=== PATIENT | male | born 1940 | race Caucasian/White ===

== ENCOUNTER 2017-12-01 15:13 | Inpatient (IN) | payer MEDICARE, OTHER ==
[2017-12-01] MEDS ORDERED: NORMAL SALINE 1000 ML 1,000 ML IV ONE (15:34)
--- NOTE | 2017-12-01 15:39 | ER Document Report ---
ED Respiratory Problem - General Stated Complaint: RESPIRATORY DISTRESS Time Seen by Provider: 12/01/17 15:28 Notes: Patient came in respiratory distress. Had severe shortness of breath. [place] sharp pain in his chest. Never had this happen before. No history of COPD. Does have a history of hypertension. Was seen by EMS. EMS placed on CPAP. Not getting better. Heart rate was 177 on arrival. - HPI Patient complains to provider of: Chest pain Onset: Just prior to arrival Quality of pain: Stabbing Severity: Severe Pain Level: 5 Short of Breath: Severe Chest pain/discomfort: Left Cough: Nonproductive Sputum amount: None Associated symptoms: None Past Medical History - General Information source: Patient - Social History Smoking Status: Former Smoker Cigarette use (# per day): No Frequency of alcohol use: None Drug Abuse: None Lives with: Spouse/Significant other Family History: None - Past Medical History Cardiac Medical History: Reports: Hx Hypertension Pulmonary Medical History: Reports: Hx Pneumonia EENT Medical History: Reports: None Neurological Medical History: Reports: None Endocrine Medical History: Reports: None Renal/ Medical History: Reports: Hx Benign Prostatic Hyperplasia Malignancy Medical History: Reports None GI Medical History: Reports: None Musculoskeltal Medical History: Reports None Skin Medical History: Reports None Psychiatric Medical History: Reports: None Review of Systems - Review of Systems Constitutional: No symptoms reported EENT: No symptoms reported Cardiovascular: Chest pain Respiratory: Short of breath Gastrointestinal: No symptoms reported Genitourinary: No symptoms reported Male Genitourinary: No symptoms reported Musculoskeletal: No symptoms reported Skin: No symptoms reported Hematologic/Lymphatic: No symptoms reported Neurological/Psychological: No symptoms reported Physical Exam - Vital signs Vitals: Resp BP Pulse Ox 35 H 164/97 H 89 L 12/01/17 15:20 12/01/17 15:20 12/01/17 15:20 Interpretation: Tachycardic, Tachypneic - General General appearance: Alert, Anxious In distress: Severe - HEENT Head: Normocephalic, Atraumatic Eyes: Normal Pupils: PERRL - Respiratory Respiratory status: Respiratory distress Chest status: Nontender Breath sounds: Other - No breath sounds present on the left Chest palpation: Normal - Cardiovascular Rhythm: Tachycardia Heart sounds: Normal auscultation Murmur: No - Abdominal Inspection: Normal Distension: No distension Bowel sounds: Normal Tenderness: Nontender Organomegaly: No organomegaly - Back Back: Normal, Nontender - Extremities General upper extremity: Normal inspection, Nontender, Normal color, Normal ROM , Normal temperature General lower extremity: Normal inspection, Nontender, Normal color, Normal ROM , Normal temperature, Normal weight bearing. No: Tyrese's sign - Neurological Neuro grossly intact: Yes Cognition: Normal Orientation: AAOx4 [place] Coma Scale Eye Opening: Spontaneous [place] Coma Scale Verbal: Oriented [place] Coma Scale Motor: Obeys Commands [place] Coma Scale Total: 15 Speech: Normal Motor strength normal: LUE, RUE, LLE, RLE Sensory: Normal - Psychological Associated symptoms: Normal affect, Normal mood - Skin Skin Temperature: Warm Skin Moisture: Dry Skin Color: Normal Course - Re-evaluation Re-evalutation: 12/01/17 16:37 Stat chest x-ray ordered. Extreme tachycardia. Chest x-ray shows tension pneumothorax. Patient moved immediately over to trauma. And prepped for chest tube. Chest tube was placed. No complications. Heart rate came down to 110. Oxygen now at 98%. CPAP removed. Patient tolerated procedure well. Will admit to the hospitalist at this time. 12/01/17 17:04 Chest X-Ray 12/01/17 16:17 IMPRESSION: Almost complete interval re-expansion of the left lung status post insertion of a left chest tube. Other findings as noted above Chest X-Ray 12/01/17 16:17 IMPRESSION: Almost complete interval re-expansion of the left lung status post insertion of a left chest tube. Other findings as noted above - Vital Signs Vital signs: Temp Pulse Resp BP Pulse Ox 26 H 142/71 H 98 12/01/17 16:42 12/01/17 16:42 12/01/17 16:42 - Laboratory Result Diagrams: 12/01/17 15:45 12/01/17 15:45 Laboratory results interpreted by me: 12/01/17 12/01/17 15:45 15:45 WBC 16.1 H RBC 6.13 H MCV 79 L MCH 25.7 L RDW 15.9 H Seg Neutrophils % 87.8 H Lymphocytes % 6.5 L Absolute Neutrophils 14.1 H Glucose 194 H Direct Bilirubin 0.5 H Creatine Kinase 49 L - EKG Interpretation by [place] EKG shows normal: Intervals, QRS Complexes, ST-T Waves Rate: Tachycardia [place]/QRS: Right axis deviation Procedures - Chest Tube Left Midaxillary Time completed: 16:38 Consent obtained: Yes Chest tube pre-insertion: Sterile PPE donned, Betadine prep applied, Chloraprep applied, Sterile drapes applied Size of [place] Tube (cm): 32 Anesthetic type: 1% Lidocaine mL's of anesthetic: 10 Chest tube post-insertion: Air pérez heard, Sutured, Position confirmed w/ CXR, Water seal, Low intermittent suction Number of attempts: 1 Complications: No Critical Care Note - Critical Care Note Total time excluding time spent on procedures (mins): 60 Comments: acute tension pneumothorax Discharge - Discharge Clinical Impression: Spontaneous tension pneumothorax Condition: Good Disposition: ADMITTED INPATIENT Admitting Provider: Hospitalist - [facility] [facility] Admitted: Telemetry
--- NOTE | 2017-12-01 15:49 | RADIOLOGY REPORT (SQ) ---
EXAM DESCRIPTION: CHEST SINGLE VIEW COMPLETED DATE/TIME: 12/01/2017 3:31 pm REASON FOR STUDY: sob COMPARISON: December 2010 EXAM PARAMETERS: NUMBER OF VIEWS: One view. TECHNIQUE: Single frontal radiographic view of the chest acquired. RADIATION DOSE: NA LIMITATIONS: None. FINDINGS: LUNGS AND PLEURA: A large pneumothorax on the left is identified with increased density in the left lung most consistent with atelectatic changes. Chronic appearing changes are identified in the right lung. MEDIASTINUM AND HILAR STRUCTURES: There appears to be some shift of the heart and mediastinal structu res from left to right suggesting a tension pneumothorax. HEART AND VASCULAR STRUCTURES: Cardiac silhouette is at the upper limits of normal in size. BONES: No acute findings. HARDWARE: Overlying monitoring devices are identified. OTHER: No other significant finding. IMPRESSION: Findings consistent with a large pneumothorax on the left and the possibility of a tensi on pneumothorax cannot be excluded. Other findings as noted above COMMENT: Pertinent findings on the imaging study reported as a CRITICAL RESULT to ANA PAULSON DO at15:36 on 12/01/2017. Category of Critical Result: Large pneumothorax on the left. TECHNICAL DOCUMENTATION: JOB ID: [id number] [employer]- All Rights Reserved
[2017-12-01] MEDS ORDERED: FENTANYL CITRATE INJ/PF 100 MCG/2 ML AMPUL ONE (15:53)
[2017-12-01] MEDS ORDERED: MIDAZOLAM 2 MG/2 ML INJ ONE (15:53)
[2017-12-01 16:11] LABS: ABSOLUTE BASOPHILS # (AUTO) 0.1 10^3/uL (0.0-0.2); ABSOLUTE EOSINOPHILS # (AUTO) 0.1 10^3/uL (0.0-0.6); ABSOLUTE MONOCYTES (AUTO) 0.8 10^3/uL (0.1-1.4); ABSOLUTE NEUT (AUTO) 14.1 10^3/uL (1.7-8.2); BASOPHILS % (AUTO) 0.4 % (0-2); EOSINOPHILS % (AUTO) 0.4 % (0-6); HEMATOCRIT 48.2 % (37.9-51.0); HEMOGLOBIN 15.7 g/dL (13.5-17.0); LYMPHOCYTES % (AUTO) 6.5 % (13-45); MEAN CORPUSCULAR HEMOGLOBIN 25.7 pg (27.0-33.4); MEAN CORPUSCULAR HGB CONC 32.7 g/dL (32.0-36.0); MEAN CORPUSCULAR VOLUME 79 fl (80-97); MONOCYTES % (AUTO) 4.9 % (3-13); PLATELET COUNT 272 10^3/uL (150-450); RED BLOOD COUNT 6.13 10^6/uL (4.35-5.55); RED CELL DISTRIBUTION WIDTH 15.9 % (11.5-14.0); SEGMENTED NEUTROPHILS % (AUTO) 87.8 % (42-78); TOTAL CELLS COUNTED % (AUTO) 100 %; WHITE BLOOD COUNT 16.1 10^3/uL (4.0-10.5)
[2017-12-01 16:38] LABS: ALANINE AMINOTRANSFERASE 29 U/L (21-72); ALBUMIN 4.5 g/dL (3.5-5.0); ALKALINE PHOSPHATASE 84 U/L (38-126); ANION GAP 15 (5-19); ASPARTATE AMINO TRANSFERASE 25 U/L (17-59); BILIRUBIN,DIRECT 0.5 mg/dL (0.0-0.4); BLOOD UREA NITROGEN 11 mg/dL (7-20); CARBON DIOXIDE 25 mmol/L (22-30); CHLORIDE 100 mmol/L (98-107); CREATINE KINASE 49 U/L (55-170); GLUCOSE 194 mg/dL (75-110); POTASSIUM 3.8 mmol/L (3.6-5.0); SODIUM 139.7 mmol/L (137-145); TOTAL PROTEIN 7.7 g/dL (6.3-8.2)
[2017-12-01 16:50] LABS: CREATINE KINASE MB 1.07 ng/mL (<4.55); NT PRO BNP 155 pg/mL (<450)
[2017-12-01 16:52] LABS: TROPONIN I < 0.012 ng/mL
--- NOTE | 2017-12-01 16:53 | RADIOLOGY REPORT (SQ) ---
EXAM DESCRIPTION: CHEST SINGLE VIEW COMPLETED DATE/TIME: 12/01/2017 4:24 pm REASON FOR STUDY: post chest tube COMPARISON: 12/01/2017 EXAM PARAMETERS: NUMBER OF VIEWS: One view. TECHNIQUE: Single frontal radiographic view of the chest acquired. RADIATION DOSE: NA LIMITATIONS: None. FINDINGS: LUNGS AND PLEURA: There has been almost complete interval re-expansion of the left lung st atus post insertion of a left chest tube. A small residual left apical pneumothorax is identified. There is airspace consolidation in the left lung base most consistent with atelectatic changes althou gh I cannot exclude pneumonic consolidation. Chronic appearing changes are again identified. The ri ght lung remains well expanded. MEDIASTINUM AND HILAR STRUCTURES: No masses. Contour normal. HEART AND VASCULAR STRUCTURES: The configuration of the heart and mediastinal structures is unchanged BONES: No acute findings. HARDWARE: Left chest tube is identified with its tip projected in the left upper hemithorax medially. OTHER: Subcutaneous air is identified along the left lateral chest wall. IMPRESSION: Almost complete interval re-expansion of the left lung status post insertion of a left c hest tube. Other findings as noted above TECHNICAL DOCUMENTATION: JOB ID: [id number] [employer]- All Rights Reserved
[2017-12-01] MEDS ORDERED: ONDANSETRON HCL INJ/PF 4 MG/2 ML SDV IV PRN (17:12)
[2017-12-01] MEDS ORDERED: ACETAMINOPHEN 325 MG TABLET PO PRN (17:12)
[2017-12-01] MEDS ORDERED: MIDAZOLAM 2 MG/2 ML INJ IV ONE (17:43)
[2017-12-01] MEDS ORDERED: FENTANYL CITRATE INJ/PF 100 MCG/2 ML AMPUL IV ONE (17:43)
[2017-12-01] MEDS ORDERED: KETOROLAC TROMETHAMINE INJ/PF 30 MG/1 ML SDV IV ONE (17:44)
--- NOTE | 2017-12-01 18:55 | EKG REPORT ---
SEVERITY:- ABNORMAL ECG - SINUS TACHYCARDIA RIGHT BUNDLE BRANCH BLOCK : Confirmed by: Jimmy Grant MD 01-Dec-2017 18:54:24
[2017-12-01] MEDS ORDERED: ALBUTEROL SULFATE HFA (90 MCG/PUFF) 8 GM MDI (1 MDI/ER DISP) IH PRN (19:57)
--- NOTE | 2017-12-01 20:08 | PDOC H&P ---
History of Present Illness Admission Date/PCP: 12/01/17 17:40 ENID STINSON PA-C Patient complains of: Shortness of breath History of Present Illness: DAVID LA is a 77 year old male with a history of hypertension, COPD and BPH presenting with 1 day complaint of shortness of breath. Patient states that he was watching a ball game and got up to use the restroom. While in the restroom patient states he coughed really hard and felt pain radiating from his left side to his back. Patient could not catch his breath. Patient thought it was due to anxiety or him hyperventilating. Patient could not breathe and ask his to call 911. Patient states when the paramedics arrived they said that he had collapsed side of his lungs as they could not hear any breath sounds. Patient states leading up to this he was doing fine. The ED patient was noted to have a left-sided pneumothorax for which a chest tube was placed. Repeat chest x-ray showed reexpansion of the lungs. Hospitalist was called to admit patient for spontaneous pneumothorax. Past Medical History Cardiac Medical History: Reports: Hypertension Pulmonary Medical History: Reports: Pneumonia EENT Medical History: Reports: None Neurological Medical History: Reports: None Endocrine Medical History: Reports: None Malignancy Medical History: Reports: None GI Medical History: Reports: None Musculoskeltal Medical History: Reports: None Skin Medical History: Reports: None Psychiatric Medical History: Reports: None Past Surgical History Past Surgical History: Reports: Other - chest tube placement Social History Lives with: Spouse/Significant other Smoking Status: Former Smoker - Advance Directive Resuscitation Status: Full Code Family History Family History: Other - CHF and heart problems Parental Family History Reviewed: No Children Family History Reviewed: No Sibling(s) Family History Reviewed.: No Medication/Allergy Home Medications: Albuterol Sulfate [Ventolin HFA MDI 18 GM] 2 puff IH Q4HP PRN 12/01/17 Alprazolam [Xanax 0.5 mg Tablet] 0.5 mg PO DAILY 12/01/17 Amlodipine Besylate [Norvasc 5 mg Tablet] 5 mg PO DAILY 12/01/17 Dutasteride [Avodart Lf 0.5 mg Capsule] 0.5 mg PO DAILY 12/01/17 Ezetimibe [Zetia 10 mg Tablet] 10 mg PO DAILY 12/01/17 Fluticasone Propionate [Flonase Nasal [place] 50 Mcg/[place] 16 gm] 2 spray NAREB DAILY 12/01/17 Lisinopril [Prinivil 40 mg Tablet] 40 mg PO DAILY 12/01/17 Metoprolol Tartrate [Lopressor 100 mg Tablet] 100 mg PO Q12 12/01/17 Tamsulosin HCl [Flomax 0.4 mg Cap.sr] 0.4 mg PO DAILY 12/01/17 Umeclidinium Brm/Vilanterol Tr [Anoro Ellipta 62.5-25 Mcg INH] 1 each IH DAILY 12/01/17 Allergies/Adverse Reactions: No Known Allergies Allergy (Unverified 12/01/17 19:36) Review of Systems Constitutional: ABSENT: chills, fever(s), headache(s), weight gain, weight loss Eyes: ABSENT: visual disturbances Ears: ABSENT: hearing changes Cardiovascular: ABSENT: chest pain, dyspnea on exertion, edema, orthropnea, palpitations Respiratory: PRESENT: cough, dyspnea. ABSENT: hemoptysis Gastrointestinal: ABSENT: abdominal pain, constipation, diarrhea, hematemesis, hematochezia, nausea, vomiting Genitourinary: ABSENT: dysuria, hematuria Musculoskeletal: ABSENT: joint swelling Integumentary: ABSENT: rash, wounds Neurological: ABSENT: abnormal gait, abnormal speech, confusion, dizziness, focal weakness, syncope Psychiatric: ABSENT: anxiety, depression, homidical ideation, suicidal ideation Endocrine: ABSENT: cold intolerance, heat intolerance, polydipsia, polyuria Hematologic/Lymphatic: ABSENT: easy bleeding, easy bruising Physical Exam Vital Signs: Temp Pulse Resp BP Pulse Ox 16 171/88 H 95 12/01/17 19:31 12/01/17 19:31 12/01/17 19:31 General appearance: PRESENT: no acute distress, well-developed, well-nourished Head exam: PRESENT: normocephalic Eye exam: PRESENT: EOMI. ABSENT: scleral icterus Mouth exam: PRESENT: moist Neck exam: ABSENT: carotid bruit, JVD, lymphadenopathy, thyromegaly Respiratory exam: PRESENT: clear to auscultation stacy, other - left sided chest tube to drainage. ABSENT: rales, rhonchi, wheezes Cardiovascular exam: PRESENT: RRR. ABSENT: diastolic murmur, rubs, systolic murmur Pulses: PRESENT: normal dorsalis pedis pul Vascular exam: PRESENT: normal capillary refill GI/Abdominal exam: PRESENT: normal bowel sounds, soft. ABSENT: distended, guarding, mass, organolmegaly, rebound, tenderness Rectal exam: PRESENT: deferred Extremities exam: PRESENT: full ROM. ABSENT: calf tenderness, clubbing, pedal edema Neurological exam: PRESENT: alert, awake, oriented to person, oriented to place , oriented to time, oriented to situation, CN II-XII grossly intact. ABSENT: motor sensory deficit Psychiatric exam: PRESENT: appropriate affect, normal mood. ABSENT: homicidal ideation, suicidal ideation Skin exam: PRESENT: dry, intact, warm. ABSENT: cyanosis, rash Results Laboratory Results: 12/01/17 12/01/17 12/01/17 15:45 15:45 15:45 WBC 16.1 H RBC 6.13 H Hgb 15.7 Hct 48.2 MCV 79 L MCH 25.7 L MCHC 32.7 RDW 15.9 H Plt Count 272 Seg Neutrophils % 87.8 H Lymphocytes % 6.5 L Monocytes % 4.9 Eosinophils % 0.4 Basophils % 0.4 Absolute Neutrophils 14.1 H Absolute Lymphocytes 1.0 Absolute Monocytes 0.8 Absolute Eosinophils 0.1 Absolute Basophils 0.1 Sodium 139.7 Potassium 3.8 Chloride 100 Carbon Dioxide 25 Anion Gap 15 BUN 11 Creatinine 0.63 Est GFR ( Amer) > 60 Est GFR (Non-Af Amer) > 60 Glucose 194 H Lactic Acid Calcium 10.0 Total Bilirubin 1.0 Direct Bilirubin 0.5 H AST 25 ALT 29 Alkaline Phosphatase 84 Creatine Kinase 49 L CK-MB (CK-2) 1.07 Troponin I < 0.012 NT-Pro-B Natriuret Pep 155 Total Protein 7.7 Albumin 4.5 12/01/17 15:45 WBC RBC Hgb Hct MCV MCH MCHC RDW Plt Count Seg Neutrophils % Lymphocytes % Monocytes % Eosinophils % Basophils % Absolute Neutrophils Absolute Lymphocytes Absolute Monocytes Absolute Eosinophils Absolute Basophils Sodium Potassium Chloride Carbon Dioxide Anion Gap BUN Creatinine Est GFR ( Amer) Est GFR (Non-Af Amer) Glucose Lactic Acid 1.7 Calcium Total Bilirubin Direct Bilirubin AST ALT Alkaline Phosphatase Creatine Kinase CK-MB (CK-2) Troponin I NT-Pro-B Natriuret Pep Total Protein Albumin Impressions: Chest X-Ray 12/01/17 16:17 IMPRESSION: Almost complete interval re-expansion of the left lung status post insertion of a left chest tube. Other findings as noted above Assessment & Plan - Diagnosis (1) Spontaneous tension pneumothorax Is this a current diagnosis for this admission?: Yes Plan: Is normal thorax following a forceful cough. Patient status post left chest tube placement suction with reexpansion of the lung on chest x-ray. Will do serial chest x-ray. Will consult surgery to follow along with chest tube management. As needed pain medication ordered. (2) COPD (chronic obstructive pulmonary disease) Is this a current diagnosis for this admission?: Yes Plan: Patient without acute exacerbation. Resume home medications. (3) Hypertension Is this a current diagnosis for this admission?: Yes Plan: Resumed on home medications. Will monitor. (4) BPH (benign prostatic hyperplasia) Is this a current diagnosis for this admission?: Yes Plan: Continue flomax. (5) HLD (hyperlipidemia) Is this a current diagnosis for this admission?: Yes Plan: Continue Ezetimibe (6) Leukocytosis Is this a current diagnosis for this admission?: Yes Plan: Stress response or hemoconcentration. Will repeat CBC in the a.m. - Time Time Spent: 30 to 50 Minutes Anticipated discharge: Home Within: within 72 hours - Inpatient Certification Medical Necessity: Need For Continuous Telemetry Monitoring, Risk of Complication if Not Cared For in Hospital, Risk of Diagnosis Which Will Require Inpatient Eval/Care/Monitoring - Patient with chest tube in place
[2017-12-01 20:26] LABS: APPEARANCE,URINE CLEAR; BILIRUBIN,URINE NEGATIVE (NEGATIVE); COLOR,URINE YELLOW; GLUCOSE, URINE 50 mg/dL (NEGATIVE); KETONES,URINE NEGATIVE (NEGATIVE); LEUKOCYTE ESTERASE,URINE NEGATIVE (NEGATIVE); NITRITE,URINE NEGATIVE (NEGATIVE); PROTEIN,URINE NEGATIVE (NEGATIVE); URINE SPECIFIC GRAVITY 1.011; UROBILINOGEN,URINE NEGATIVE mg/dL (<2.0)
[2017-12-01] MEDS: HYDROMORPHONE HCL INJ/PF 2 MG/ML AMPULE IV SCH (21:10)
[2017-12-01] MEDS: METOPROLOL TARTRATE 100 MG TABLET PO SCH (22:27)
--- NOTE | 2017-12-01 23:00 | PDOC CONSULTATION ---
History of Present Illness Admission Date/PCP: 12/01/17 17:40 ENID STINSON PA-C Patient complains of: Left-sided chest pain along with shortness of breath History of Present Illness: DAVID LA is a 77 year old male with a history of hypertension, COPD and BPH presenting with 1 day complaint of shortness of breath. Patient states that he was watching a ball game and got up to use the restroom. While in the restroom patient states he coughed really hard and felt pain radiating from his left side to his back. Patient could not catch his breath. Patient thought it was due to anxiety or him hyperventilating. Patient could not breathe and ask his to call 911. Patient states when the paramedics arrived they said that he had collapsed side of his lungs as they could not hear any breath sounds. Patient states leading up to this he was doing fine. Patient was noted with a left-sided pneumothorax in the ER and had a chest tube placed with reexpansion of his lungs. No prior history of pneumothorax. Past Medical History Cardiac Medical History: Reports: Hypertension Pulmonary Medical History: Reports: Pneumonia EENT Medical History: Reports: None Neurological Medical History: Reports: None Endocrine Medical History: Reports: None Malignancy Medical History: Reports: None GI Medical History: Reports: None Musculoskeltal Medical History: Reports: None Skin Medical History: Reports: None Psychiatric Medical History: Reports: None Past Surgical History Past Surgical History: Reports: Other - chest tube placement Social History Lives with: Spouse/Significant other Smoking Status: Former Smoker - Advance Directive Resuscitation Status: Full Code Family History Family History: Other - CHF and heart problems Parental Family History Reviewed: No Children Family History Reviewed: No Sibling(s) Family History Reviewed.: No Medication/Allergy Home Medications: Albuterol Sulfate [Ventolin HFA MDI 18 GM] 2 puff IH Q4HP PRN 12/01/17 Alprazolam [Xanax 0.5 mg Tablet] 0.5 mg PO QHS 12/01/17 Amlodipine Besylate [Norvasc 5 mg Tablet] 5 mg PO DAILY 12/01/17 Dutasteride [Avodart Lf 0.5 mg Capsule] 0.5 mg PO DAILY 12/01/17 Ezetimibe [Zetia 10 mg Tablet] 10 mg PO QHS 12/01/17 Fluticasone Propionate [Flonase Nasal [place] 50 Mcg/[place] 16 gm] 2 spray NAREB DAILY 12/01/17 Lisinopril [Prinivil 40 mg Tablet] 40 mg PO DAILY 12/01/17 Metoprolol Tartrate [Lopressor 100 mg Tablet] 100 mg PO Q12 12/01/17 Tamsulosin HCl [Flomax 0.4 mg Cap.sr] 0.4 mg PO DAILY 12/01/17 Umeclidinium Brm/Vilanterol Tr [Anoro Ellipta 62.5-25 Mcg INH] 1 each IH DAILY 12/01/17 Allergies/Adverse Reactions: No Known Allergies Allergy (Unverified 12/01/17 19:36) Physical Exam Vital Signs: Temp Pulse Resp BP Pulse Ox 113 H 17 148/81 H 97 12/01/17 20:58 12/01/17 22:30 12/01/17 22:30 12/01/17 22:30 Intake & Output 11/30/17 12/01/17 12/02/17 06:59 06:59 06:59 Weight 102 kg General appearance: PRESENT: no acute distress, cooperative Eye exam: PRESENT: conjunctiva pink Respiratory exam: PRESENT: clear to auscultation stacy, other - Left-sided chest tube in place. No air leak seen on Pleur-evac. Cardiovascular exam: PRESENT: RRR GI/Abdominal exam: PRESENT: other - Soft, protuberant, nontender to palpation Neurological exam: PRESENT: alert, awake Psychiatric exam: PRESENT: appropriate affect Skin exam: PRESENT: warm Results Laboratory Results: 12/01/17 19:32 Urine Color YELLOW Urine Appearance CLEAR Urine pH 6.0 Ur Specific [place] 1.011 Urine Protein NEGATIVE Urine Glucose (UA) 50 H Urine Ketones NEGATIVE Urine Blood NEGATIVE Urine Nitrite NEGATIVE Ur Leukocyte Esterase NEGATIVE Urine WBC (Auto) 1 Urine RBC (Auto) 1 Impressions: Chest X-Ray 12/01/17 16:17 IMPRESSION: Almost complete interval re-expansion of the left lung status post insertion of a left chest tube. Other findings as noted above Assessment & Plan - Diagnosis (1) Spontaneous tension pneumothorax Is this a current diagnosis for this admission?: Yes Plan: On the left side status post chest tube placement. We will plan to keep the chest tube to 20 cm water suction for 48 hours. Possible DC chest tube and DC patient home on Tuesday.
[2017-12-02] MEDS: HYDROMORPHONE HCL INJ/PF 2 MG/ML AMPULE IV SCH ×6 (02:25→15:29)
[2017-12-02] MEDS: LANSOPRAZOLE 30 MG TAB.RAP.DR PO SCH (06:04)
--- NOTE | 2017-12-02 08:43 | RADIOLOGY REPORT (SQ) ---
EXAM DESCRIPTION: CHEST SINGLE VIEW COMPLETED DATE/TIME: 12/02/2017 8:20 am REASON FOR STUDY: pneumothorax COMPARISON: Chest films 12/22/2010, 12/01/2017 EXAM PARAMETERS: NUMBER OF VIEWS: One view. TECHNIQUE: Single frontal radiographic view of the chest acquired. RADIATION DOSE: NA LIMITATIONS: None. FINDINGS: LUNGS AND PLEURA: Trace left apical pneumothorax. Since the prior chest film 12/01/2017 16 22 hours, patient's left chest tube was replaced. The current tube tip is in the left major fissure, stable left chest wall air. Findings discussed with Dr. Rich, 0825 hours 12/02/2017. Increased interstitial markings are present at both lung bases from chronic fibrosis. There is bandl rosey scarring or atelectasis in the right lung apex, similar compared to 2010. No pleural effusions. No right pneumothorax. HEART AND VASCULAR STRUCTURES: Stable moderate to marked cardiomegaly BONES: No acute findings. HARDWARE: New left chest tube tip over the left major fissure OTHER: No other significant finding. IMPRESSION: Since the prior films 12/01/2017, the left chest tube has been exchanged. The current tu be tip is in the left major fissure with trace left apical pneumothorax. Stable left chest wall air. TECHNICAL DOCUMENTATION: JOB ID: [id number] [employer]- All Rights Reserved
[2017-12-02 08:57] LABS: HEMATOCRIT 46.9 % (37.9-51.0); HEMOGLOBIN 15.4 g/dL (13.5-17.0); MEAN CORPUSCULAR HEMOGLOBIN 25.7 pg (27.0-33.4); MEAN CORPUSCULAR HGB CONC 32.8 g/dL (32.0-36.0); MEAN CORPUSCULAR VOLUME 78 fl (80-97); PLATELET COUNT 271 10^3/uL (150-450); RED BLOOD COUNT 5.99 10^6/uL (4.35-5.55); WHITE BLOOD COUNT 17.4 10^3/uL (4.0-10.5)
[2017-12-02 09:20] LABS: ANION GAP 12 (5-19); BLOOD UREA NITROGEN 13 mg/dL (7-20); CALCIUM 9.8 mg/dL (8.4-10.2); CARBON DIOXIDE 25 mmol/L (22-30); CHLORIDE 104 mmol/L (98-107); GLUCOSE 112 mg/dL (75-110); POTASSIUM 4.1 mmol/L (3.6-5.0)
[2017-12-02] MEDS: TAMSULOSIN HCL 0.4 MG CAP.SR.24H PO SCH (09:25)
[2017-12-02] MEDS: LISINOPRIL 10 MG TABLET PO SCH (09:26)
[2017-12-02] MEDS: METOPROLOL TARTRATE 100 MG TABLET PO SCH ×2 (09:26→21:49)
[2017-12-02] MEDS: AMLODIPINE BESYLATE 5 MG TABLET PO SCH (09:26)
[2017-12-02] MEDS: FLUTICASONE NASAL SPRAY 50 MCG/SPRY 120 SPRAY/16 GM NAREB SCH (09:27)
[2017-12-02] MEDS: DUTASTERIDE 0.5 MG CAPSULE PO SCH (09:27)
[2017-12-02] MEDS: ALPRAZOLAM 0.5 MG TABLET PO SCH ×2 (09:28→21:50)
[2017-12-02] MEDS: DOCUSATE SODIUM 100 MG CAPSULE PO SCH (09:28)
[2017-12-02 09:36] LABS: ABSOLUTE LYMPHOCYTES# (MANUAL) 0.3 10^3/uL (0.5-4.7); ABSOLUTE NEUTROPHILS# (MANUAL) 16.9 10^3/uL (1.7-8.2); BASOPHILS % (MANUAL) 1 % (0-2); EOSINOPHILS % (MANUAL) 0 % (0-6); LYMPHOCYTES % (MANUAL) 2 % (13-45); MONOCYTES % (MANUAL) 0 % (3-13); SEGMENTED NEUTROPHILS % (MAN) 97 % (42-78); TOTAL CELLS COUNTED 100
[2017-12-02 09:37] LABS: ANISOCYTOSIS 1+; PLATELET COMMENT ADEQUATE; POLYCHROMASIA SLIGHT; TOXIC GRANULATION 1+; TOXIC VACUOLATION PRESENT
[2017-12-02] MEDS ORDERED: (PENDING PHARMACY ID) (Umeclidinium Brm/Vilanterol Tr [Anoro Ellipta 62.5-25 Mcg Inh] 1 EA IH SCH (10:00)
[2017-12-02] MEDS ORDERED: EZETIMIBE 10 MG TABLET PO SCH (10:00)
[2017-12-02] MEDS: KETOROLAC TROMETHAMINE INJ/PF 30 MG/1 ML SDV IV PRN ×2 (18:34→23:36)
--- NOTE | 2017-12-02 20:53 | PDOC PROGRESS REPORT ---
Subjective Progress Note for:: 12/02/17 Subjective:: pains along chest tube site Reason For Visit: RESPIRATORY DISTRESS,PNEUMOTHORAX Physical Exam Vital Signs: Temp Pulse Resp BP Pulse Ox 98.2 F 89 18 167/70 H 94 12/02/17 18:33 12/02/17 19:00 12/02/17 18:33 12/02/17 18:33 12/02/17 18:33 Intake & Output 12/01/17 12/02/17 12/03/17 06:59 06:59 06:59 Intake Total 6 1339 Output Total 200 155 Balance -194 1184 Weight 89.9 kg Exam: Chest tube with no obvious air leak. Insertion site inspected because claims she could hear air coming out of the insertion site. Dressings check. No ar leak. Vaseline gauze around chest tube in place. Results Laboratory Results: 12/02/17 08:30 12/02/17 08:30 12/02/17 12/02/17 08:30 08:30 WBC 17.4 H RBC 5.99 H Hgb 15.4 Hct 46.9 MCV 78 L MCH 25.7 L MCHC 32.8 RDW 16.0 H Plt Count 271 Seg Neutrophils % Not Reportable Lymphocytes % Not Reportable Monocytes % Not Reportable Eosinophils % Not Reportable Basophils % Not Reportable Absolute Neutrophils Not Reportable Absolute Lymphocytes Not Reportable Absolute Monocytes Not Reportable Absolute Eosinophils Not Reportable Absolute Basophils Not Reportable Sodium 141.0 Potassium 4.1 Chloride 104 Carbon Dioxide 25 Anion Gap 12 BUN 13 Creatinine 0.56 Est GFR ( Amer) > 60 Est GFR (Non-Af Amer) > 60 Glucose 112 H Calcium 9.8 Impressions: Chest X-Ray 12/02/17 06:00 IMPRESSION: Since the prior films 12/01/2017, the left chest tube has been exchanged. The current tube tip is in the left major fissure with trace left apical pneumothorax. Stable left chest wall air. Assessment & Plan - Time Time Spent with patient: 15-24 minutes - Plan Summary Plan Summary: Chest xray in am and if no Pneumothorax then possible removal of chest tube.
[2017-12-02] MEDS: EZETIMIBE 10 MG TABLET PO SCH (21:49)
[2017-12-02] MEDS: LEVOFLOXACIN 500 MG TABLET PO SCH (21:50)
[2017-12-03 04:55] LABS: ABSOLUTE BASOPHILS # (AUTO) 0.1 10^3/uL (0.0-0.2); ABSOLUTE EOSINOPHILS # (AUTO) 0.1 10^3/uL (0.0-0.6); ABSOLUTE LYMPHOCYTES (AUTO) 0.9 10^3/uL (0.5-4.7); ABSOLUTE MONOCYTES (AUTO) 1.4 10^3/uL (0.1-1.4); ABSOLUTE NEUT (AUTO) 13.4 10^3/uL (1.7-8.2); BASOPHILS % (AUTO) 0.5 % (0-2); EOSINOPHILS % (AUTO) 0.4 % (0-6); HEMOGLOBIN 14.9 g/dL (13.5-17.0); LYMPHOCYTES % (AUTO) 5.6 % (13-45); MEAN CORPUSCULAR VOLUME 79 fl (80-97); MONOCYTES % (AUTO) 8.8 % (3-13); PLATELET COUNT 228 10^3/uL (150-450); RED BLOOD COUNT 5.72 10^6/uL (4.35-5.55); RED CELL DISTRIBUTION WIDTH 16.1 % (11.5-14.0); SEGMENTED NEUTROPHILS % (AUTO) 84.7 % (42-78); TOTAL CELLS COUNTED % (AUTO) 100 %; WHITE BLOOD COUNT 15.9 10^3/uL (4.0-10.5)
[2017-12-03 05:16] LABS: ANION GAP 10 (5-19); BLOOD UREA NITROGEN 18 mg/dL (7-20); CALCIUM 9.4 mg/dL (8.4-10.2); CARBON DIOXIDE 26 mmol/L (22-30); CHLORIDE 101 mmol/L (98-107); GLUCOSE 107 mg/dL (75-110); POTASSIUM 4.1 mmol/L (3.6-5.0); SODIUM 137.1 mmol/L (137-145)
[2017-12-03] MEDS: LANSOPRAZOLE 30 MG TAB.RAP.DR PO SCH (05:41)
[2017-12-03] MEDS: KETOROLAC TROMETHAMINE INJ/PF 30 MG/1 ML SDV IV PRN ×4 (05:41→21:24)
--- NOTE | 2017-12-03 09:09 | RADIOLOGY REPORT (SQ) ---
EXAM DESCRIPTION: CHEST SINGLE VIEW COMPLETED DATE/TIME: 12/03/2017 8:42 am REASON FOR STUDY: pneumothorax COMPARISON: Chest x-ray 12/02/2017. EXAM PARAMETERS: NUMBER OF VIEWS: One view. TECHNIQUE: Single frontal radiographic view of the chest acquired. RADIATION DOSE: NA LIMITATIONS: None. FINDINGS: LUNGS AND PLEURA: Interval increase in the left-sided pneumothorax and subcutaneous emphys esau in the left chest wall. Chronic changes of fibrosis are again seen in the right lung. MEDIASTINUM AND HILAR STRUCTURES: Mediastinal shift to the right. HEART AND VASCULAR STRUCTURES: The heart is upper normal limit in size. No overt vascular congestion . BONES: No acute findings. HARDWARE: Left-sided chest tube with the tip in the soft tissues. IMPRESSION: Interval increase in the left-sided pneumothorax and subcutaneous emphysema in the left chest wall with mediastinal shift to the right. The left-sided chest tube with tip is in the soft ti ssues. COMMENT: Pertinent positive or negative findings of the imaging study reported as a CRITICAL EXAM jn Guzmán, patient's RN, at09:01 hrs on 12/03/2017. Category of Critical Exam: Interval increase in the left-sided pneumothorax and subcutaneous emphysem a in the left chest wall with mediastinal shift to the right. The left-sided chest tube tip is in th e soft tissues. TECHNICAL DOCUMENTATION: JOB ID: [id number] 2010 [employer]- All Rights Reserved
[2017-12-03] MEDS ORDERED: LIDOCAINE 0.5% INJ-PF (5 MG/ML) 50 ML SDV ONE (09:21)
[2017-12-03] MEDS ORDERED: LIDOCAINE 1% INJ-PF (10 MG/ML) 30 ML SDV ONE (09:21)
[2017-12-03] MEDS ORDERED: HYDROMORPHONE HCL INJ/PF 2 MG/ML AMPULE ONE (09:29)
[2017-12-03] MEDS: AMLODIPINE BESYLATE 5 MG TABLET PO SCH (10:13)
[2017-12-03] MEDS: LISINOPRIL 10 MG TABLET PO SCH (10:14)
[2017-12-03] MEDS: TAMSULOSIN HCL 0.4 MG CAP.SR.24H PO SCH (10:14)
[2017-12-03] MEDS: ALPRAZOLAM 0.5 MG TABLET PO SCH (10:14)
[2017-12-03] MEDS: METOPROLOL TARTRATE 100 MG TABLET PO SCH ×2 (10:15→21:23)
[2017-12-03] MEDS: DUTASTERIDE 0.5 MG CAPSULE PO SCH (10:17)
[2017-12-03] MEDS: DOCUSATE SODIUM 100 MG CAPSULE PO SCH (10:18)
[2017-12-03] MEDS: FLUTICASONE NASAL SPRAY 50 MCG/SPRY 120 SPRAY/16 GM NAREB SCH (10:18)
--- NOTE | 2017-12-03 10:21 | Operative Report ---
Operative Report DATE OF SURGERY: 12/03/17 PREOPERATIVE DIAGNOSIS: 1. Bilateral airspace disease consistent with the COPD and emphysema. 2. Left pneumothorax status post chest tube placement now with displaced tube, subcutaneous emphysema and recollapse of the left lung with respiratory distress POSTOPERATIVE DIAGNOSIS: Same OPERATION: 1. Placement of left 32 Croatian anterior thoracostomy tube. 2. Closure of previous left thoracostomy tube site SURGEON: PETE STEVENS ANESTHESIA: Local TISSUE REMOVED OR ALTERED: None COMPLICATIONS: None ESTIMATED BLOOD LOSS: Scant INTRAOPERATIVE FINDINGS: See below PROCEDURE: Patient was seen in 320, in moderate respiratory distress with saturations of 90 % on nasal cannula 2 L. Preparations made for replacement left thoracostomy tube We explained to the patient what we were going to do, with an explanation of the risks benefits and alternatives. We did proceed The left thoracostomy tube dressing was removed, and the chest tube which had backed itself out nearly completely was removed from the patient's left chest and residual suture removed as well. Note the patient was in moderate respiratory distress but not severe. There was a mild amount of subcutaneous emphysema laterally. Reviewed his chest tube entered the left chest below and lateral to the left nipple. Left chest was then prepped and draped in sterile fashion with chlorhexidine. Surgical plan and surgical timeout conducted. A suitable site for replacement chest tube was chosen over ICS 5-6 left chest lateral and apical to the left nipple. Skin was anesthetized with plain lidocaine 1%. Small incision made with 15 blade, Jenna clamps used to enter the chest with a gush of air. A 32 Croatian chest tube was inserted with the sentinel hole approximately 9 cm from the skin edge. Chest tube secured with 2- 0 silk sutures. The previous thoracostomy tube site was closed with a running 3-0 Ethilon suture. Patient immediately had clinical improvement in his breathing. He did have some pain in his left shoulder initially but this subsided. Dressings including Xeroform 4 x 4's and Medipore tape applied carefully. Chest tube hooked to 20 centimeters of suction with persisting , intermittent air leak. Patient tolerated the procedure well. Portable upright chest x-ray pending at time dictation. Patient may require CT scan of the chest to rule out concomitant malignancy, and further define his airspace disease. If air leak does not resolve, VATS procedure may be required. The above explained to the patient and his using diagrams.
--- NOTE | 2017-12-03 12:00 | RADIOLOGY REPORT (SQ) ---
EXAM DESCRIPTION: CHEST SINGLE VIEW COMPLETED DATE/TIME: 12/03/2017 10:16 am REASON FOR STUDY: CHEST TUBE PLACEMENT COMPARISON: 12/03/2017. EXAM PARAMETERS: NUMBER OF VIEWS: One view. TECHNIQUE: Single frontal radiographic view of the chest acquired. RADIATION DOSE: NA LIMITATIONS: None. FINDINGS: LUNGS AND PLEURA: There has been re-expansion the left lung with residual left basilar pne umothorax again noted. Left chest tube repositioned with tip overlying left lung apex medially. The re are persistent infiltrates noted within the right mid and lower lung sharp. Hyperlucency of the upper lobes suggests the possibility of bullous disease. Bilateral apical pleural thickening. MEDIASTINUM AND HILAR STRUCTURES: Mediastinal shift right again noted. HEART AND VASCULAR STRUCTURES: Heart remains unchanged with uncoiling thoracic aorta. BONES: No acute findings. HARDWARE: None in the chest. OTHER: Subcutaneous emphysema left chest wall again seen. IMPRESSION: Status post left chest tube placement. Changes consistent with COPD. Near complete re- expansion of left lung with residual left basilar pneumothorax. Bilateral pulmonary infiltrates agai n noted. TECHNICAL DOCUMENTATION: JOB ID: [id number] [place]-[id number] 2010 [employer]- All Rights Reserved
[2017-12-03] MEDS ORDERED: AMOXICILLIN TR/POT CLAVULANATE 500-125 MG TAB PO SCH (12:15)
[2017-12-03] MEDS: OXYCODONE-ACETAMINOPHEN 5-325 MG TABLET PO PRN (13:43)
--- NOTE | 2017-12-03 13:59 | RADIOLOGY REPORT (SQ) ---
EXAM DESCRIPTION: CT CHEST WITHOUT COMPLETED DATE/TIME: 12/03/2017 1:23 pm REASON FOR STUDY: pneumothorax COMPARISON: Several chest x-rays over the past few days. TECHNIQUE: CT scan performed of the chest without intravenous contrast. Images reviewed with lung, soft tissue and bone windows. Reconstructed coronal and sagittal MPR images reviewed. All images st ored on PACS. All CT scanners at this facility use dose modulation, iterative reconstruction, and/or weight based d osing when appropriate to reduce radiation dose to as low as reasonably achievable (ALARA). [facility]: Dose Right [facility]: CareDose [facility]: Dose Right [facility]: Teradose 4D [facility]: Smart Fileforce RADIATION DOSE: CT Rad equipment meets quality standard of care and radiation dose reduction techniq ues were employed. CTDIvol: 16.8 mGy. DLP: 711 mGy-cm. mGy. LIMITATIONS: No technical limitations. 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 Sub pleural honeycombing. Bronchiectasis. Several bullae and blebs in both lungs. Moderate left pneumo thorax, approximately 30%. HILAR AND MEDIASTINAL STRUCTURES: Pneumomediastinum. No identified masses or abnormal nodes. No obv ious aneurysm. HEART AND VASCULAR STRUCTURES: Mild cardiomegaly. No aneurysm. No pericardial effusion. UPPER ABDOMEN: No significant findings. Limited exam. THYROID AND OTHER SOFT TISSUES: Subcutaneous emphysema in the soft tissues of the left chest wall ext ending to the supraclavicular region. No masses. No adenopathy. BONES: No significant finding. HARDWARE: Left side chest tube. OTHER: No other significant findings. IMPRESSION: BULLOUS EMPHYSEMA WITH SEVERE PULMONARY FIBROSIS. SEVERAL BULLA AND BLEBS. LEFT-SIDED CHEST TUBE. APPROXIMATELY 30% LEFT PNEUMOTHORAX. SUBCUTANEOUS EMPHYSEMA IN THE SOFT TISSUES ON THE LEFT SIDE. TECHNICAL DOCUMENTATION: JOB ID: [id number] Quality ID # [id number]: Final reports with documentation of one or more dose reduction techniques (e.g., Au tomated exposure control, adjustment of the mA and/or kV according to patient size, use of iterative reconstruction technique) 2010 [employer]- All Rights Reserved
[2017-12-03] MEDS: AMPICILLIN SODIUM/SULBACTAM NA 3 GM in NORMAL SALINE 100 ML IV SCH ×2 (15:57→20:27)
--- NOTE | 2017-12-03 17:27 | PDOC PROGRESS REPORT ---
Subjective Progress Note for:: 12/02/17 Subjective:: Patient is a 77-year-old male who presented to the ED after he experienced sudden shortness of breath and chest pain and he was found to have a left-sided spontaneous pneumothorax. Patient has a history of COPD but stopped smoking over 20 years ago. Patient also had a very bad pneumonia in the past. Patient states he is doing pretty well. Reason For Visit: RESPIRATORY DISTRESS,PNEUMOTHORAX Physical Exam Vital Signs: Temp Pulse Resp BP Pulse Ox 98.2 F 91 18 167/70 H 94 12/02/17 18:33 12/02/17 18:33 12/02/17 18:33 12/02/17 18:33 12/02/17 18:33 Intake & Output 12/01/17 12/02/17 12/03/17 06:59 06:59 06:59 Intake Total 6 1339 Output Total 200 155 Balance -194 1184 Weight 89.9 kg General appearance: PRESENT: no acute distress, well-developed, well-nourished Head exam: PRESENT: normocephalic Eye exam: PRESENT: EOMI. ABSENT: scleral icterus Mouth exam: PRESENT: moist Neck exam: ABSENT: carotid bruit, JVD, lymphadenopathy, thyromegaly Respiratory exam: PRESENT: clear to auscultation stacy, other - Left-sided chest tube. ABSENT: rales, rhonchi, wheezes Cardiovascular exam: PRESENT: RRR. ABSENT: diastolic murmur, rubs, systolic murmur GI/Abdominal exam: PRESENT: normal bowel sounds, soft. ABSENT: distended, guarding, mass, organolmegaly, rebound, tenderness Rectal exam: PRESENT: deferred Extremities exam: PRESENT: full ROM. ABSENT: calf tenderness, clubbing, pedal edema Neurological exam: PRESENT: alert, awake, oriented to person, oriented to place , oriented to time, oriented to situation, CN II-XII grossly intact. ABSENT: motor sensory deficit Psychiatric exam: PRESENT: appropriate affect, normal mood. ABSENT: homicidal ideation, suicidal ideation Skin exam: PRESENT: dry, intact, warm. ABSENT: cyanosis, rash Results Laboratory Results: 12/02/17 08:30 12/02/17 08:30 12/01/17 12/02/17 12/02/17 19:32 08:30 08:30 WBC 17.4 H RBC 5.99 H Hgb 15.4 Hct 46.9 MCV 78 L MCH 25.7 L MCHC 32.8 RDW 16.0 H Plt Count 271 Seg Neutrophils % Not Reportable Lymphocytes % Not Reportable Monocytes % Not Reportable Eosinophils % Not Reportable Basophils % Not Reportable Absolute Neutrophils Not Reportable Absolute Lymphocytes Not Reportable Absolute Monocytes Not Reportable Absolute Eosinophils Not Reportable Absolute Basophils Not Reportable Sodium 141.0 Potassium 4.1 Chloride 104 Carbon Dioxide 25 Anion Gap 12 BUN 13 Creatinine 0.56 Est GFR ( Amer) > 60 Est GFR (Non-Af Amer) > 60 Glucose 112 H Calcium 9.8 Urine Color YELLOW Urine Appearance CLEAR Urine pH 6.0 Ur Specific Mcintosh 1.011 Urine Protein NEGATIVE Urine Glucose (UA) 50 H Urine Ketones NEGATIVE Urine Blood NEGATIVE Urine Nitrite NEGATIVE Ur Leukocyte Esterase NEGATIVE Urine WBC (Auto) 1 Urine RBC (Auto) 1 Impressions: Chest X-Ray 12/02/17 06:00 IMPRESSION: Since the prior films 12/01/2017, the left chest tube has been exchanged. The current tube tip is in the left major fissure with trace left apical pneumothorax. Stable left chest wall air. Assessment & Plan - Diagnosis (1) Spontaneous tension pneumothorax Is this a current diagnosis for this admission?: Yes Plan: Spontaneous tension pneumothorax following a forceful cough. Patient status post left chest tube placement suction with reexpansion of the lung on chest x- ray. Repeat chest x-ray shows small left apical pneumothorax. Surgery is following. Continue as needed pain medication. (2) Respiratory failure with hypoxia Qualifiers: Chronicity: acute Qualified Code(s): J96.01 - Acute respiratory failure with hypoxia Is this a current diagnosis for this admission?: Yes Plan: Likely secondary to his pneumothorax and pneumonia. (3) Pneumonia Is this a current diagnosis for this admission?: Yes Plan: Patient with worsening loose leukocytosis and now with chest x-ray findings concerning for possible pneumonia. Patient started on Levaquin. (4) COPD (chronic obstructive pulmonary disease) Is this a current diagnosis for this admission?: Yes Plan: Patient without acute exacerbation. Resume home medications. (5) Hypertension Is this a current diagnosis for this admission?: Yes Plan: Resumed on home medications. Will monitor. (6) BPH (benign prostatic hyperplasia) Is this a current diagnosis for this admission?: Yes Plan: Continue flomax. (7) HLD (hyperlipidemia) Is this a current diagnosis for this admission?: Yes Plan: Continue Ezetimibe (8) Leukocytosis Is this a current diagnosis for this admission?: Yes Plan: Initially thought to be stress response or hemoconcentration however patient leukocytosis is worsening and there chest x-ray findings also patient at bedtime to in place. Patient started on Levaquin. - Time Time Spent with patient: 15-24 minutes Anticipated discharge: Home Within: Other - Inpatient Certification Medical Necessity: Significant Comorbidiites Make Outpatient Treatment Too Risky - Chest tube in place, Need Close Monitoring Due to Risk of Patient Decompensation, Other
--- NOTE | 2017-12-03 17:37 | PDOC PROGRESS REPORT ---
Subjective Progress Note for:: 12/03/17 Subjective:: Patient is a 77-year-old male who presented to the ED after he experienced sudden shortness of breath and chest pain and he was found to have a left-sided spontaneous pneumothorax. Patient has a history of COPD but stopped smoking over 20 years ago. Patient also had a very bad pneumonia in the past. States he has noticed that he had a possible leak last night and did develop some respiratory distress. Patient was seen by surgery overnight. Repeat chest x- ray shows recurrent pneumothorax. Patient was seen by Dr. Taveras who exchanged the chest to on 12/03/2017. Repeat chest x-ray shows reexpansion of the lungs. Did discuss the case with Dr. Reyna who recommended getting a CT scan sooner than later to make sure that the patient does not have any bullous disease that may have caused him to have a spontaneous pneumothorax. He states he feels much better now that the chest tube was reinserted and his lung has reexpanded. Reason For Visit: RESPIRATORY DISTRESS,PNEUMOTHORAX Physical Exam Vital Signs: Temp Pulse Resp BP Pulse Ox 98.1 F 90 18 162/86 H 96 12/03/17 08:17 12/03/17 14:00 12/03/17 08:17 12/03/17 08:17 12/03/17 16:24 Pulse Oximeter Continuous Start: 12/02/17 21: 50 Freq: RTQ4 Status: Active Document 12/03/17 16:24 LDA (Rec: 12/03/17 16:26 [email or web address] [id number]) Pulse Oximetry Assessment Oxygen Saturation (92-100) 96 Oxygen Flow Rate (L/min) 4 Oxygen Delivery Method Nasal Cannula Equipment Usage Equipment in Use Continuous SpO2 Machine # [id number] Intake & Output 12/02/17 12/03/17 12/04/17 06:59 06:59 06:59 Intake Total 6 1739 140 Output Total 200 678 0 Balance -194 1061 140 Weight 89.9 kg General appearance: PRESENT: no acute distress, well-developed, well-nourished Head exam: PRESENT: normocephalic Eye exam: PRESENT: EOMI. ABSENT: scleral icterus Ear exam: PRESENT: normal external ear exam Mouth exam: PRESENT: moist Neck exam: ABSENT: carotid bruit, JVD, lymphadenopathy, thyromegaly Respiratory exam: PRESENT: clear to auscultation stacy, other - left sided chest tube connected to suction.. ABSENT: rales, rhonchi, wheezes Cardiovascular exam: PRESENT: RRR. ABSENT: diastolic murmur, rubs, systolic murmur Pulses: PRESENT: normal dorsalis pedis pul GI/Abdominal exam: PRESENT: normal bowel sounds, soft. ABSENT: distended, guarding, mass, organolmegaly, rebound, tenderness Rectal exam: PRESENT: deferred Extremities exam: PRESENT: full ROM. ABSENT: calf tenderness, clubbing, pedal edema Neurological exam: PRESENT: alert, awake, oriented to person, oriented to place , oriented to time, oriented to situation, CN II-XII grossly intact. ABSENT: motor sensory deficit Psychiatric exam: PRESENT: appropriate affect, normal mood. ABSENT: homicidal ideation, suicidal ideation Skin exam: PRESENT: dry, intact, warm. ABSENT: cyanosis, rash Results Laboratory Results: 12/03/17 04:25 12/03/17 04:25 12/03/17 12/03/17 04:25 04:25 WBC 15.9 H RBC 5.72 H Hgb 14.9 Hct 45.0 MCV 79 L MCH 26.0 L MCHC 33.0 RDW 16.1 H Plt Count 228 Seg Neutrophils % 84.7 H Lymphocytes % 5.6 L Monocytes % 8.8 Eosinophils % 0.4 Basophils % 0.5 Absolute Neutrophils 13.4 H Absolute Lymphocytes 0.9 Absolute Monocytes 1.4 Absolute Eosinophils 0.1 Absolute Basophils 0.1 Sodium 137.1 Potassium 4.1 Chloride 101 Carbon Dioxide 26 Anion Gap 10 BUN 18 Creatinine 0.57 Est GFR ( Amer) > 60 Est GFR (Non-Af Amer) > 60 Glucose 107 Calcium 9.4 Impressions: Chest CT 12/03/17 00:00 IMPRESSION: BULLOUS EMPHYSEMA WITH SEVERE PULMONARY FIBROSIS. SEVERAL BULLA AND BLEBS. LEFT-SIDED CHEST TUBE. APPROXIMATELY 30% LEFT PNEUMOTHORAX. SUBCUTANEOUS EMPHYSEMA IN THE SOFT TISSUES ON THE LEFT SIDE. Chest X-Ray 12/03/17 09:57 IMPRESSION: Status post left chest tube placement. Changes consistent with COPD. Near complete re-expansion of left lung with residual left basilar pneumothorax. Bilateral pulmonary infiltrates again noted. Assessment & Plan - Diagnosis (1) Spontaneous tension pneumothorax Is this a current diagnosis for this admission?: Yes Plan: Spontaneous tension pneumothorax following a forceful cough. Chest tube had to be replaced after the previous chest tube became dislodged and pneumothorax reoccurred. Dr. Taveras replaced chest tube and repeat chest x-ray shows reexpansion of the left lung. Repeat chest x-ray in the morning. CT scan of the chest was ordered today per Curseen recommendation stating that bullous disease or any possible other causes of spontaneous pneumothorax should be looked for. He stated that if patient has another spontaneous pneumothorax that he may require VATS. Surgery still following. (2) Respiratory failure with hypoxia Qualifiers: Chronicity: acute Qualified Code(s): J96.01 - Acute respiratory failure with hypoxia Is this a current diagnosis for this admission?: Yes Plan: Likely secondary to his pneumothorax and pneumonia. He is satting well on supplemental oxygen. (3) Pneumonia Qualifiers: Laterality: bilateral Is this a current diagnosis for this admission?: Yes Plan: Patient bilateral pneumonia. Leukocytosis improving on Levaquin. Will add Unasyn and monitor improvement of leukocytosis. (4) COPD (chronic obstructive pulmonary disease) Is this a current diagnosis for this admission?: Yes Plan: Patient without acute exacerbation. Resume home medications. (5) Hypertension Is this a current diagnosis for this admission?: Yes Plan: Resumed on home medications. Will monitor. (6) BPH (benign prostatic hyperplasia) Is this a current diagnosis for this admission?: Yes Plan: Continue flomax. (7) HLD (hyperlipidemia) Is this a current diagnosis for this admission?: Yes Plan: Continue Ezetimibe (8) Leukocytosis Is this a current diagnosis for this admission?: Yes Plan: Initially thought to be stress response or hemoconcentration however patient leukocytosis is worsening and there chest x-ray findings also patient at bedtime to in place. Continue Levaquin and Unasyn. Follow-up CBC. - Time Time Spent with patient: 15-24 minutes Anticipated discharge: Home Within: Other - Inpatient Certification Medical Necessity: Significant Comorbidiites Make Outpatient Treatment Too Risky - Patient still with left-sided chest tube., Need Close Monitoring Due to Risk of Patient Decompensation, Need for IV Antibiotics
[2017-12-03] MEDS ORDERED: AMPICILLIN SOD/SULBACTAM 3 GM VIAL IV SCH (18:00)
[2017-12-03] MEDS: EZETIMIBE 10 MG TABLET PO SCH (21:22)
[2017-12-03] MEDS: LEVOFLOXACIN 500 MG TABLET PO SCH (21:23)
[2017-12-03] MEDS ORDERED: ALPRAZOLAM 0.5 MG TABLET PO SCH (22:00)
[2017-12-04] MEDS: AMPICILLIN SODIUM/SULBACTAM NA 3 GM in NORMAL SALINE 100 ML IV SCH ×3 (03:09→16:01)
[2017-12-04] MEDS: OXYCODONE-ACETAMINOPHEN 5-325 MG TABLET PO PRN ×4 (03:11→18:36)
[2017-12-04] MEDS: LANSOPRAZOLE 30 MG TAB.RAP.DR PO SCH (05:50)
[2017-12-04] MEDS: KETOROLAC TROMETHAMINE INJ/PF 30 MG/1 ML SDV IV PRN ×2 (05:51→12:30)
[2017-12-04 06:51] LABS: ABSOLUTE BASOPHILS # (AUTO) 0.1 10^3/uL (0.0-0.2); ABSOLUTE EOSINOPHILS # (AUTO) 0.3 10^3/uL (0.0-0.6); ABSOLUTE MONOCYTES (AUTO) 1.2 10^3/uL (0.1-1.4); BASOPHILS % (AUTO) 0.5 % (0-2); EOSINOPHILS % (AUTO) 2.1 % (0-6); HEMATOCRIT 45.3 % (37.9-51.0); HEMOGLOBIN 14.9 g/dL (13.5-17.0); LYMPHOCYTES % (AUTO) 7.5 % (13-45); MEAN CORPUSCULAR VOLUME 79 fl (80-97); MONOCYTES % (AUTO) 8.7 % (3-13); PLATELET COUNT 211 10^3/uL (150-450); RED BLOOD COUNT 5.74 10^6/uL (4.35-5.55); RED CELL DISTRIBUTION WIDTH 16.2 % (11.5-14.0); SEGMENTED NEUTROPHILS % (AUTO) 81.2 % (42-78); TOTAL CELLS COUNTED % (AUTO) 100 %; WHITE BLOOD COUNT 13.5 10^3/uL (4.0-10.5)
[2017-12-04 07:17] LABS: ANION GAP 9 (5-19); BLOOD UREA NITROGEN 20 mg/dL (7-20); CALCIUM 9.5 mg/dL (8.4-10.2); CARBON DIOXIDE 30 mmol/L (22-30); CHLORIDE 98 mmol/L (98-107); GLUCOSE 105 mg/dL (75-110); POTASSIUM 3.8 mmol/L (3.6-5.0)
--- NOTE | 2017-12-04 08:40 | RADIOLOGY REPORT (SQ) ---
EXAM DESCRIPTION: CHEST SINGLE VIEW COMPLETED DATE/TIME: 12/04/2017 8:24 am REASON FOR STUDY: pneumothorax COMPARISON: None. EXAM PARAMETERS: NUMBER OF VIEWS: One view. TECHNIQUE: Single frontal radiographic view of the chest acquired. RADIATION DOSE: NA LIMITATIONS: None. FINDINGS: LUNGS AND PLEURA: There is persistent left pneumothorax essentially unchanged. Previously noted pneumomediastinum not well visualized. Findings compatible with known bullous emphysema and p ersistent bilateral pulmonary infiltrates essentially unchanged. MEDIASTINUM AND HILAR STRUCTURES: No masses. Contour normal. HEART AND VASCULAR STRUCTURES: Heart normal in size. Normal vasculature. BONES: No acute findings. HARDWARE: None in the chest. OTHER: Left chest tube directed superior laterally left upper hemithorax. Subcutaneous emphysema maria alejandra st wall essentially unchanged. IMPRESSION: NO SIGNIFICANT INTERVAL CHANGE. TECHNICAL DOCUMENTATION: JOB ID: [id number] 2010 [employer]- All Rights Reserved
[2017-12-04] MEDS: TAMSULOSIN HCL 0.4 MG CAP.SR.24H PO SCH (09:33)
[2017-12-04] MEDS: METOPROLOL TARTRATE 100 MG TABLET PO SCH (09:34)
[2017-12-04] MEDS: DOCUSATE SODIUM 100 MG CAPSULE PO SCH (09:34)
[2017-12-04] MEDS: LISINOPRIL 10 MG TABLET PO SCH (09:34)
[2017-12-04] MEDS: AMLODIPINE BESYLATE 5 MG TABLET PO SCH (09:35)
[2017-12-04] MEDS: DUTASTERIDE 0.5 MG CAPSULE PO SCH (09:37)
[2017-12-04] MEDS: FLUTICASONE NASAL SPRAY 50 MCG/SPRY 120 SPRAY/16 GM NAREB SCH (09:43)
[2017-12-04] MEDS ORDERED: METHYLPREDNISOLONE INJ 40 MG/1 ML SDV IV SCH (14:00)
--- NOTE | 2017-12-04 14:10 | PDOC PROGRESS REPORT ---
Subjective Progress Note for:: 12/04/17 Subjective:: Patient is a 77-year-old male who is admitted for a spontaneous pneumothorax. The patient has a history of COPD and prior episodes of pneumonia. He stopped using tobacco 20 years ago. The patient required reinsertion of a chest tube on the secondary to tension pneumothorax. Patient had a CT scan yesterday showing severe bullous disease as well as pulmonary fibrosis in the lower lobes. Other than mid axillary and left anterior chest pain the patient is without complaints. He states that he is breathing much better. Reason For Visit: RESPIRATORY DISTRESS,PNEUMOTHORAX Physical Exam Vital Signs: Temp Pulse Resp BP Pulse Ox 97.9 F 77 18 137/73 H 93 12/04/17 11:52 12/04/17 11:52 12/04/17 11:52 12/04/17 11:52 12/04/17 12:00 Pulse Oximeter Continuous Start: 12/02/17 21: 50 Freq: RTQ4 Status: Active Document 12/04/17 12:00 LDA (Rec: 12/04/17 12:26 LDA [email or web address]) Pulse Oximetry Assessment Oxygen Saturation (92-100) 93 Oxygen Flow Rate (L/min) 2 Oxygen Delivery Method Nasal Cannula Equipment Usage Equipment in Use Continuous SpO2 Machine # [id number] Intake & Output 12/03/17 12/04/17 12/05/17 06:59 06:59 06:59 Intake Total 1739 2268 Output Total 678 425 Balance 1061 1843 Weight 88.2 kg Additional comments: The patient appears to be healthy for his age. His cognition is intact. His facial appearance is unremarkable. His lungs demonstrated decreased breath sounds on both the right and left lungs. I did not appreciate any Velcro rales posteriorly. His cardiac exam demonstrates a regular rate and rhythm without murmurs, gallops or rubs. The abdomen is soft and flat. There is no guarding or rebound noted. There are no hernias or masses present. The lower extremities are unremarkable. No pitting edema is present. The skin is warm, dry and intact without lesions or rashes. Results Laboratory Results: 12/04/17 06:29 12/04/17 06:29 12/04/17 12/04/17 06:29 06:29 WBC 13.5 H RBC 5.74 H Hgb 14.9 Hct 45.3 MCV 79 L MCH 26.0 L MCHC 33.0 RDW 16.2 H Plt Count 211 Seg Neutrophils % 81.2 H Lymphocytes % 7.5 L Monocytes % 8.7 Eosinophils % 2.1 Basophils % 0.5 Absolute Neutrophils 11.0 H Absolute Lymphocytes 1.0 Absolute Monocytes 1.2 Absolute Eosinophils 0.3 Absolute Basophils 0.1 Sodium 137.0 Potassium 3.8 Chloride 98 Carbon Dioxide 30 Anion Gap 9 BUN 20 Creatinine 0.63 Est GFR ( Amer) > 60 Est GFR (Non-Af Amer) > 60 Glucose 105 Calcium 9.5 Impressions: Chest CT 12/03/17 00:00 IMPRESSION: BULLOUS EMPHYSEMA WITH SEVERE PULMONARY FIBROSIS. SEVERAL BULLA AND BLEBS. LEFT-SIDED CHEST TUBE. APPROXIMATELY 30% LEFT PNEUMOTHORAX. SUBCUTANEOUS EMPHYSEMA IN THE SOFT TISSUES ON THE LEFT SIDE. Chest X-Ray 12/04/17 06:00 IMPRESSION: NO SIGNIFICANT INTERVAL CHANGE. Assessment & Plan - Diagnosis (1) BPH (benign prostatic hyperplasia) Is this a current diagnosis for this admission?: Yes Plan: Continue Flomax. (2) COPD (chronic obstructive pulmonary disease) Is this a current diagnosis for this admission?: Yes Plan: In light of the persistent pneumothorax and the findings on the CT scan I am going to add corticosteroids pulmonary has been consulted. (3) HLD (hyperlipidemia) Is this a current diagnosis for this admission?: Yes Plan: Continue Ezetimibe (4) Hypertension Is this a current diagnosis for this admission?: Yes Plan: Continue home regimen. BP is stable. (5) Leukocytosis Is this a current diagnosis for this admission?: Yes Plan: Continue antibiotics. (6) Pneumonia Qualifiers: Laterality: bilateral Is this a current diagnosis for this admission?: Yes Plan: The patient was receiving Levaquin. Unasyn was added 12/03/2016. (7) Respiratory failure with hypoxia Qualifiers: Chronicity: acute Qualified Code(s): J96.01 - Acute respiratory failure with hypoxia Is this a current diagnosis for this admission?: Yes Plan: Continue supplemental oxygen. (8) Spontaneous tension pneumothorax Is this a current diagnosis for this admission?: Yes Plan: Surgery is following. Pulmonary has been consulted. Patient continues to have an air leak with a 30% pneumothorax. Likely, this will require surgery if not now in the future. Also, patient may require further evaluation of pulmonary fibrosis possibly with biopsy. - Time Time Spent with patient: 25-34 minutes - Inpatient Certification Medical Necessity: Failure to Improve With Outpatient Therapy, Need Close Monitoring Due to Risk of Patient Decompensation, Need for Pain Control, Need for IV Antibiotics, Need for Surgery
[2017-12-04] MEDS ORDERED: ENOXAPARIN SODIUM INJ 40 MG/0.4 ML DISP.SYRIN SUBCUT ONE (15:00)
[2017-12-04] MEDS ORDERED: ALPRAZOLAM 0.5 MG TABLET PO PRN (15:51)
--- NOTE | 2017-12-04 15:59 | PDOC TRANSFER SUMMARY ---
General Admission Date/PCP: 12/01/17 17:40 ENID STINSON PA-C Resuscitation Status: Full Code - Transfer Diagnosis (1) Spontaneous tension pneumothorax Is this a current diagnosis for this admission?: Yes (2) Respiratory failure with hypoxia Is this a current diagnosis for this admission?: Yes (3) COPD (chronic obstructive pulmonary disease) Is this a current diagnosis for this admission?: Yes (4) BPH (benign prostatic hyperplasia) Is this a current diagnosis for this admission?: Yes (5) HLD (hyperlipidemia) Is this a current diagnosis for this admission?: Yes (6) Hypertension Is this a current diagnosis for this admission?: Yes (7) Leukocytosis Is this a current diagnosis for this admission?: Yes (8) Pneumonia Is this a current diagnosis for this admission?: Yes (9) Pulmonary fibrosis Is this a current diagnosis for this admission?: Yes - Transfer Medications Home Medications: Albuterol Sulfate [Ventolin HFA MDI 18 GM] 2 puff IH Q4HP PRN 12/01/17 Alprazolam [Xanax 0.5 mg Tablet] 0.5 mg PO QHS 12/01/17 Amlodipine Besylate [Norvasc 5 mg Tablet] 5 mg PO DAILY 12/01/17 Dutasteride [Avodart Lf 0.5 mg Capsule] 0.5 mg PO DAILY 12/01/17 Ezetimibe [Zetia 10 mg Tablet] 10 mg PO QHS 12/01/17 Fluticasone Propionate [Flonase Nasal Rome 50 Mcg/Rome 16 gm] 2 spray NAREB DAILY 12/01/17 Lisinopril [Prinivil 40 mg Tablet] 40 mg PO DAILY 12/01/17 Metoprolol Tartrate [Lopressor 100 mg Tablet] 100 mg PO Q12 12/01/17 Tamsulosin HCl [Flomax 0.4 mg Cap.sr] 0.4 mg PO DAILY 12/01/17 Umeclidinium Brm/Vilanterol Tr [Anoro Ellipta 62.5-25 Mcg INH] 1 each IH DAILY 12/01/17 Transfer Medications: Current Medications Acetaminophen (Tylenol 325 Mg Tablet) 325 mg PO Q4HP PRN PRN Reason: MILD PAIN OR FEVER Stop: 12/31/17 17:11 Albuterol (Ventolin Hfa 8 Gm Mdi (1 Mdi/Er Disp)) 2 puff IH Q4HP PRN PRN Reason: SHORTNESS OF BREATH Stop: 12/31/17 19:56 Alprazolam (Xanax 0.5 Mg Tablet) 0.5 mg PO QHS [facility] Stop: 12/09/17 09:59 Last Admin: 12/03/17 21:23 Dose: 0.5 mg Alprazolam (Xanax 0.5 Mg Tablet) 0.5 mg PO NOW ONE Stop: 12/04/17 16:01 Amlodipine Besylate (Norvasc 5 Mg Tablet) 5 mg PO DAILY [facility] Stop: 01/01/18 09:59 Last Admin: 12/04/17 09:35 Dose: 5 mg Docusate Sodium (Colace 100 Mg Capsule) 100 mg PO DAILY [facility] Stop: 01/01/18 09:59 Last Admin: 12/04/17 09:34 Dose: 100 mg Dutasteride (Avodart Lf 0.5 Mg Capsule) 0.5 mg PO DAILY [facility] Stop: 01/01/18 09:59 Last Admin: 12/04/17 09:37 Dose: 0.5 mg Ezetimibe (Zetia 10 Mg Tablet) 10 mg PO QHS [facility] Stop: 01/01/18 21:59 Last Admin: 12/03/17 21:22 Dose: 10 mg Enoxaparin Sodium (Lovenox Inj 40 Mg/0.4 Ml Disp.Syrin) 40 mg SUBCUT DAILY [facility] Stop: 01/04/18 09:59 Fluticasone Propionate (Flonase Nasal Rome 50 Mcg/Rome 16 Gm) 2 spray NAREB DAILY [facility] Stop: 01/01/18 09:59 Last Admin: 12/04/17 09:43 Dose: Not Given Ampicillin Sodium/Sulbactam (Sodium 3 gm/ Sodium Chloride) 100 mls @ 100 mls/ hr IV Q6A [facility] Stop: 12/10/17 14:59 Last Admin: 12/04/17 09:37 Dose: 3 gm Lansoprazole (Prevacid 30 Mg Odt Tablet) 30 mg PO Q6AM [facility] Stop: 01/01/18 05:59 Last Admin: 12/04/17 05:50 Dose: 30 mg Levofloxacin (Levaquin 500 Mg Tablet) 500 mg PO QHS [facility] Stop: 12/09/17 21:59 Last Admin: 12/03/17 21:23 Dose: 500 mg Lisinopril (Prinivil 10 Mg Tablet) 40 mg PO DAILY [facility] Stop: 01/01/18 09:59 Last Admin: 12/04/17 09:34 Dose: 40 mg Methylprednisolone Sodium Succinate (Solu-Medrol Inj/Pf 40 Mg/1 Ml Sdv) 40 mg IV Q8 [facility] Stop: 01/03/18 13:59 Metoprolol Tartrate (Lopressor 100 Mg Tablet) 100 mg PO Q12 [facility] Stop: 12/31/17 21:59 Last Admin: 12/04/17 09:34 Dose: 100 mg Ondansetron HCl (Zofran Inj/Pf 4 Mg/2 Ml Sdv) 4 mg IV Q4HP PRN PRN Reason: FOR NAUSEA/VOMITING Stop: 12/31/17 17:11 Oxycodone/Acetaminophen (Percocet 5-325 Mg Tablet) 1 tab PO Q6HP PRN PRN Reason: PAIN Stop: 12/08/17 17:11 Last Admin: 12/04/17 09:33 Dose: 1 tab Patient Own Medication (Umeclidinium Brm/Vilanterol Tr [Anoro Ellipta 62.5-25 Mcg Inh]) 1 each IH DAILY [facility] Stop: 01/01/18 09:59 Tamsulosin HCl (Flomax 0.4 Mg Cap.Sr) 0.4 mg PO DAILY [facility] Stop: 01/01/18 09:59 Last Admin: 12/04/17 09:33 Dose: 0.4 mg - Allergies Allergies/Adverse Reactions: No Known Allergies Allergy (Unverified 12/01/17 19:36) - Diet/Activity Discharge Diet: Regular Discharge Activity: Bedrest Hospital Course Hospital Course: The patient was admitted to the hospital on December 01, 2017 with a spontaneous pneumothorax. The patient suddenly developed chest pain with severe dyspnea. The pneumothorax is in the left lung. A chest tube was placed by surgery. On the patient developed sudden onset of shortness of breath with chest pain. The pneumothorax had recurred and the chest tube had to be replaced. On 12/03/[address] the [address] CT scan. This demonstrates a persistent 30% pneumothorax in the left lung. The patient has severe upper lobe predominant bolus disease and the patient has bilateral fibrosis of the lower lungs. The patient has a history of COPD but quit smoking 20 years ago. He does not endorse a history of pulmonary fibrosis at this time. The case has been discussed with our surgeon Dr. Taveras. At this point in time it is clear that the patient requires video-assisted thoracoscopic surgery for surgical pleurodesis. It is also recommended that the patient have sampling of the lower lung tissue to determine what the cause of the pulmonary fibrosis is. The patient is in agreement to transfer. Arrangements are being made to transfer the patient today to [facility] in [facility]. Regarding the patient's care he was initially placed on Levaquin on the day of admission. Secondary to persistent leukocytosis Unasyn was added on 12/03/2017. The patient was not initially placed on corticosteroids, but, based on the CT imaging findings and the persistent pneumothorax I did start the patient on systemic corticosteroids today. We have continued most of his home medications for his hypertension and hyperlipidemia. He also remains on Flomax for benign prostatic hypertrophy. The patient appears stable for transfer at this time. Physical Exam Vital Signs: Temp Pulse Resp BP Pulse Ox 97.9 F 77 18 137/73 H 93 12/04/17 11:52 12/04/17 11:52 12/04/17 11:52 12/04/17 11:52 12/04/17 12:00 Pulse Oximeter Continuous Start: 12/02/17 21: 50 Freq: RTQ4 Status: Active Document 12/04/17 12:00 LDA (Rec: 12/04/17 12:26 LDA [email or web address]) Pulse Oximetry Assessment Oxygen Saturation (92-100) 93 Oxygen Flow Rate (L/min) 2 Oxygen Delivery Method Nasal Cannula Equipment Usage Equipment in Use Continuous SpO2 Machine # n-3 Intake & Output 12/03/17 12/04/17 12/05/17 06:59 06:59 06:59 Intake Total 1739 2268 230 Output Total 675 425 Balance 1061 1843 230 Weight 88.2 kg Additional comments: The patient is a white male. His cognition is normal. He does not appear to be in significant distress. He actually appears very healthy for his age. His facial appearance is unremarkable. His lungs demonstrate decreased breath sounds both anteriorly and posteriorly. However, he does have a large air leak in the left chest making it difficult to auscultate lung sounds. Patient's cardiac exam is regular without murmurs, gallops or rubs. The abdomen is soft and flat. The abdomen is nondistended and nontender. The patient does not have guarding or rebound noted and there are no hernias or masses present. The lower extremities are warm to touch. No pitting edema is present. The skin is warm, dry and intact without lesions or rashes. Results Laboratory Results: 12/04/17 06:29 12/04/17 06:29 12/04/17 12/04/17 06:29 06:29 WBC 13.5 H RBC 5.74 H Hgb 14.9 Hct 45.3 MCV 79 L MCH 26.0 L MCHC 33.0 RDW 16.2 H Plt Count 211 Seg Neutrophils % 81.2 H Lymphocytes % 7.5 L Monocytes % 8.7 Eosinophils % 2.1 Basophils % 0.5 Absolute Neutrophils 11.0 H Absolute Lymphocytes 1.0 Absolute Monocytes 1.2 Absolute Eosinophils 0.3 Absolute Basophils 0.1 Sodium 137.0 Potassium 3.8 Chloride 98 Carbon Dioxide 30 Anion Gap 9 BUN 20 Creatinine 0.63 Est GFR ( Amer) > 60 Est GFR (Non-Af Amer) > 60 Glucose 105 Calcium 9.5 Impressions: Chest CT 12/03/17 00:00 IMPRESSION: BULLOUS EMPHYSEMA WITH SEVERE PULMONARY FIBROSIS. SEVERAL BULLA AND BLEBS. LEFT-SIDED CHEST TUBE. APPROXIMATELY 30% LEFT PNEUMOTHORAX. SUBCUTANEOUS EMPHYSEMA IN THE SOFT TISSUES ON THE LEFT SIDE. Chest X-Ray 12/04/17 06:00 IMPRESSION: NO SIGNIFICANT INTERVAL CHANGE. Plan Discharge Plan: The patient is being transferred to [facility] in [facility]. He has been accepted by Dr. Fowler for video-assisted thoracoscopic surgery. Time Spent: Less than 30 Minutes
[2017-12-04] MEDS ORDERED: ALPRAZOLAM 0.5 MG TABLET PO ONE (16:00)
[2017-12-04] MEDS ORDERED: LORAZEPAM 1 MG TABLET PO PRN (18:09)
--- NOTE | 2017-12-04 18:29 | PROGRESS NOTE E ---
Progress Note NAME: DAVID LA : 1940 AGE: 77Y DATE: 12/04/2017 ROOM: 328 SUBJECTIVE: The patient is seen on rounds, Room 328. Patient remains in moderate respiratory distress. He had a fairly uneventful night. He transiently desaturates when he exerts himself. OBJECTIVE: VITAL SIGNS: Stable. Saturations anywhere from 90% to 95%, depending upon exertion. CHEST: Examined. There is no palpable subcutaneous emphysema anteriorly. The chest tube site appears adequately taped. There is significant nearly continuous air leak through the chest tube into the Pleur-evac. The Pleur-evac drained approximately 200 mL of serosanguineous material overnight. Portable chest x-ray this morning shows the chest tube to be in good position, and no expansion of subcutaneous emphysema. There is hyperlucency over the left chest. The patient had a CT scan of the chest yesterday, which revealed bilateral emphysematous disease, pulmonary fibrosis, significant bullous disease bilaterally and persisting pneumothorax on the left side, mostly anterior, with large bullae. IMPRESSION: SEVERE EMPHYSEMATOUS BULLOUS DISEASE BILATERALLY, WITH PULMONARY FIBROSIS COMPLICATED BY PNEUMOTHORAX, WITH NEAR-CONTINUOUS AIR LEAK, DESPITE APPROPRIATELY PLACED 32-ALBANIAN CHEST TUBE. RECOMMENDATIONS: I have discussed the findings above with patient, his , nursing staff, as well as hospitalist. We have also reviewed the images on CT scan. I explained to the patient and his that although he is clinically stable, he is extremely fragile and if he decompensates, he will require advanced care beyond the capabilities of this institution. I recommend he be transferred out of [facility] to either [facility] or [facility] under the auspices of a thoracic surgeon who can manage this complication of bullous emphysematous disease, possibly with additional chest tubes and/or VATS procedure. DICTATING PHYSICIAN: PETE STEVENS M.D. [id number] PHY#: [id number] ID: [id number] JOB#: [id number] ACCT: [id number] cc: >
[2017-12-04] MEDS ORDERED: LORAZEPAM 1 MG TABLET PO ONE (18:30)
[2017-12-04 20:14] VITALS: BP 156/87
[2017-12-05] MEDS ORDERED: ENOXAPARIN SODIUM INJ 40 MG/0.4 ML DISP.SYRIN SUBCUT SCH (10:00)
== END 2017-12-04 20:17 | disposition short-term general hospital (02) | DRG 199 ==
LOC: ER 15:13 → EH 17:40 → 3S 23:40
PROVIDERS: ADMIT Emergency Medicine; ATTEND Emergency Medicine
PROC: 0W9B30Z Drainage of Left Pleural Cavity with Drainage Device, Percutaneous Approach (ICD-10-PCS; principal; 2017-12-01)
PROC: 0W9B30Z Drainage of Left Pleural Cavity with Drainage Device, Percutaneous Approach (ICD-10-PCS; 2017-12-03)
DX: J93.0 Spontaneous tension pneumothorax (principal); J96.01 Acute respiratory failure with hypoxia; J18.9 Pneumonia, unspecified organism; J44.9 Chronic obstructive pulmonary disease, unspecified; I10 Essential (primary) hypertension; N40.0 Benign prostatic hyperplasia without lower urinary tract symptoms; Z87.891 Personal history of nicotine dependence; Z79.51 Long term (current) use of inhaled steroids; Z79.899 Other long term (current) drug therapy; Z75.1 Person awaiting admission to adequate facility elsewhere
CPT/HCPCS: 36415; 71045; 71250; 80048; 80053; 81001; 82550; 82553; 83605; 83880; 84484; 85025; 87040; 93005; 93010; 94660; 94762; 94799; 99285; J0295; J1170; J1650; J1885; J2250; J2920; J3010; J3490; J7030

== ENCOUNTER → 2018-03-08 | Outpatient (CLI) | payer MEDICARE, OTHER ==
[~2018-03-08] MED LIST: ALBUTEROL SULFATE 0.083% NEB 2.5 MG/3 ML AMPUL NEB ONE
--- NOTE | 2018-03-22 13:06 | Pulmonary Function Test ---
Pulmonary Function Test Date of Procedure:: 03/20/18 INDICATION:: DYSPNEA Referring Provider: Torch Straightener And Heater: CLEMENTINA LOVE PANTRY ATTENDANT - Report Spirometry: FVC 2.55L 56% POST BRONCHODIALATOR 2.54L 56% FEV1 1.96 55% 1.90L 53% FEV1/FVC % 77 77 PREDICTED 75 NKO15-53% 1.60 46% 1.38 L 40% Diffusion Capactity: DLCO 7.8 37% DLCO/VA 2.24 64% Impression: Study demonstrates moderate obstructive ventilatory defect with insignificant response to bronchodilator therapy. This in and of itself does not preclude a clinical trial of abdominal Bronchal dilator therapy. Study suggests that there is a restrictive defect. Restrictive defects cannot be diagnosed on the basis of spirometry alone. Restrictive defects may mask the degree of obstruction. Severe decrease in diffusion capacity.
== END ==
LOC: RT 06:54
PROVIDERS: ATTEND Surgery
DX: R06.09 Other forms of dyspnea (principal); R53.1 Weakness
CPT/HCPCS: 94729; 94060; A9270

== ENCOUNTER 2018-09-03 18:00 | Inpatient (IN) | payer MEDICARE, OTHER ==
--- NOTE | 2018-09-03 18:42 | ER Document Report ---
ED General - General Chief Complaint: Breathing Difficulty Stated Complaint: DIFFICULTY BREATHING Time Seen by Provider: 09/03/18 18:16 Cannot obtain history due to: Unstable vital signs Notes: Patient is a 78-year-old male with a past medical history of spontaneous pneumothorax, interstitial lung disease, COPD, hypertension, hypo-natremia hyponatremia who presents with acute onset of shortness of breath started approximately 2 hours prior to arrival. The patient reports that since onset has gotten progressively worse. Nothing improves or worsens the shortness of breath. He has had similar symptoms several times in the past related to his interstitial lung disease. He has not yet contacted his primary care physician regarding today's concerns. He denies any associated fever or constitutional symptoms. No chest pain. No history of fluid retention or CHF. History is otherwise somewhat limited secondary to the patient's respiratory distress at time of presentation. TRAVEL OUTSIDE OF THE [place] IN LAST 30 DAYS: No - Related Data Allergies/Adverse Reactions: No Known Allergies Allergy (Unverified 12/01/17 19:36) Past Medical History - General Information source: Patient, Relative - Social History Smoking Status: Former Smoker Chew tobacco use (# tins/day): No Frequency of alcohol use: None Drug Abuse: None Lives with: Spouse/Significant other Family History: Reviewed & Not Pertinent, Other Patient has suicidal ideation: No Patient has homicidal ideation: No - Past Medical History Cardiac Medical History: Reports: Hx Hypertension Pulmonary Medical History: Reports: Hx Pneumonia Renal/ Medical History: Reports: Hx Benign Prostatic Hyperplasia. Denies: Hx Peritoneal Dialysis Psychiatric Medical History: Denies: Hx Depression Past Surgical History: Reports: Other - chest tube placement - Immunizations Hx Pneumococcal Vaccination: 11/21/11 Review of Systems - Review of Systems Notes: Constitutional: Negative for fever. HENT: Negative for sore throat. Eyes: Negative for visual changes. Cardiovascular: Negative for chest pain. Respiratory: Positive for shortness of breath. Gastrointestinal: Negative for abdominal pain, vomiting or diarrhea. Genitourinary: Negative for dysuria. Musculoskeletal: Negative for back pain. Skin: Negative for rash. Neurological: Negative for headaches, weakness or numbness. 10 point ROS negative except as marked above and in HPI. Physical Exam - Vital signs Vitals: Pulse Ox 92 09/03/18 18:10 Interpretation: Tachypneic Notes: PHYSICAL EXAMINATION: GENERAL: Appears uncomfortable, in moderate respiratory distress HEAD: Atraumatic, normocephalic. EYES: Pupils equal round and reactive to light, extraocular movements intact, sclera anicteric, conjunctiva are normal. ENT: nares patent, oropharynx clear without exudates. Moderate dry mucous membranes. NECK: Normal range of motion, supple without lymphadenopathy LUNGS: Moderate respiratory distress, tachypneic with intercostal retractions. Diminished breath sounds at the bases bilaterally, scattered rhonchi but no wheezing HEART: Regular rate and rhythm without murmurs ABDOMEN: Soft, nontender, normoactive bowel sounds. No guarding, no rebound. No masses appreciated. EXTREMITIES: Normal range of motion, no pitting or edema. No cyanosis. NEUROLOGICAL: No focal neurological deficits. Moves all extremities spontaneously and on command. PSYCH: Moderately anxious SKIN: Warm, Dry, normal turgor, no rashes or lesions noted. Course - Re-evaluation Re-evalutation: 09/03/18 18:40 Patient presents in moderate to severe respiratory distress. Symptoms started shortly prior to arrival and the patient woke up from a nap. Breath sounds are notably clear bilaterally although the patient is tachypneic with intercostal retractions. He has a complex past medical history in regards to his pulmonary functions, currently diagnosed with interstitial lung disease which was diagnosed after he had a spontaneous pneumothorax in November of this year. The patient also carries a diagnosis of COPD although is not wheezing on examination. He has no history of congestive heart failure, no stigmata of fluid overload on exam. A stat portable chest x-ray will be obtained to definitively exclude a recurrent spontaneous pneumothorax which is not appreciated on examination at this point. Patient has been placed on BiPAP to assist with his respiratory distress. Labs are pending. Will continue to reassess at regular intervals. Patient is in guarded condition currently. 09/03/18 18:51 Chest x-ray does not show any evidence of a recurrent pneumothorax, does show prominent interstitial lung disease. Patient is quite anxious on BiPAP, will receive 5 mg of diazepam for anxiolysis. Awaiting laboratories and will continue to reassess at regular intervals. Patient's work of breathing is overall improving on BiPAP. Currently satting 98% on 30% FiO2. 09/03/18 19:24 Labs overall unremarkable. The patient does remain persistently tachycardic and tachypneic. Will proceed with CTA of the chest to evaluate for possible pulmonary embolus. 09/03/18 19:39 Patient states he is not able to tolerate BiPAP any further. BiPAP removed, the patient does go down to 92% on 4 L by nasal cannula, normally uses 2 L. He remains quite tachypneic. The patient attributes the majority of his symptoms to the new medication that he started called Samsca which he has taken 2 doses of. He states he was informed that this could trigger an exacerbation of his shortness of breath and he does attribute his symptoms to this. States his symptoms started 4 hours after taking his most recent 15 mg dose today. Will continue to monitor. 09/03/18 22:21 Patient remains persistently tachypneic, tachycardic. I discussed with Dr. walton the hospitalist at [facility] who is excepted the patient although the patient himself is declining transfer to [facility]. He states that he understands that his care has been completed there, they are a specialized facility, but he does not wish to go back. He states he would like to be hospitalized here and see our accounting representative in-house. The patient has also explicitly stated that he is a DNI, is under no circumstance to be intubated or placed on a ventilator. He continues to resist being placed on BiPAP despite his ongoing respiratory distress. Will empirically treat with levofloxacin for the possibility of associated infection for which have an overall low clinical suspicion. Will discuss with Dr. Ambriz for admission. - Vital Signs Vital signs: Temp Pulse Resp BP Pulse Ox 34 H 165/74 H 94 09/03/18 21:01 09/03/18 21:01 09/03/18 21:01 - Laboratory Result Diagrams: 09/03/18 18:24 09/03/18 18:24 Laboratory results interpreted by id: 09/03/18 09/03/18 09/03/18 18:24 18:24 18:24 WBC 12.1 H MCV 79 L MCH 25.8 L RDW 17.1 H Seg Neutrophils % 82.8 H Lymphocytes % 7.9 L Absolute Neutrophils 10.1 H VBG HCO3 Chloride 94 L Carbon Dioxide 36 H Creatinine 0.50 L ALT 17 L NT-Pro-B Natriuret Pep 863 H Urine Blood 09/03/18 09/03/18 18:24 18:24 WBC MCV MCH RDW Seg Neutrophils % Lymphocytes % Absolute Neutrophils VBG HCO3 35.2 H Chloride Carbon Dioxide Creatinine ALT NT-Pro-B Natriuret Pep Urine Blood SMALL H - Diagnostic Test Radiology reviewed: Image reviewed, Reports reviewed Radiology results interpreted by me: 09/03/18 18:52 Chest x-ray: Prominent interstitial changes bilaterally, no pneumothorax - EKG Interpretation by Me Additional EKG results interpreted by me: 09/03/18 22:23 Sinus tachycardia. Rate 118. No ST elevations or depressions. Right bundle branch block. QTC 499. Critical Care Note - Critical Care Note Total time excluding time spent on procedures (mins): 78 Comments: Critical care time spent obtaining history from patient or surrogate, discussions with consultants, development of treatment plan with patient or surrogate, evaluation of patient's response to treatment, examination of patient , ordering and performing treatments and interventions, ordering and review of laboratory studies, re-evaluation of patient's condition, ordering and review of radiographic studies and review of old charts Discharge - Discharge Clinical Impression: Pulmonary fibrosis, Respiratory distress Respiratory failure with hypoxia Qualifiers: Chronicity: acute Qualified Code(s): J96.01 - Acute respiratory failure with hypoxia Condition: Fair Disposition: ADMITTED INPATIENT Admitting Provider: Hospitalist Unit Admitted: IMCU Referrals: ENID STINSON PA-C [Primary Care Provider] - Follow up as needed
[2018-09-03 18:44] LABS: ABSOLUTE MONOCYTES (AUTO) 1.1 10^3/uL (0.1-1.4); ABSOLUTE NEUT (AUTO) 10.1 10^3/uL (1.7-8.2); BASOPHILS % (AUTO) 0.4 % (0-2); EOSINOPHILS % (AUTO) 0.2 % (0-6); HEMATOCRIT 41.9 % (37.9-51.0); HEMOGLOBIN 13.8 g/dL (13.5-17.0); LYMPHOCYTES % (AUTO) 7.9 % (13-45); MEAN CORPUSCULAR HEMOGLOBIN 25.8 pg (27.0-33.4); MEAN CORPUSCULAR HGB CONC 32.9 g/dL (32.0-36.0); MEAN CORPUSCULAR VOLUME 79 fl (80-97); MONOCYTES % (AUTO) 8.7 % (3-13); PLATELET COUNT 319 10^3/uL (150-450); RED BLOOD COUNT 5.33 10^6/uL (4.35-5.55); RED CELL DISTRIBUTION WIDTH 17.1 % (11.5-14.0); SEGMENTED NEUTROPHILS % (AUTO) 82.8 % (42-78); TOTAL CELLS COUNTED % (AUTO) 100 %; WHITE BLOOD COUNT 12.1 10^3/uL (4.0-10.5)
[2018-09-03] MEDS ORDERED: DIAZEPAM INJ 10 MG/2 ML DISP.SYRIN ONE (18:45)
[2018-09-03 18:47] LABS: VENOUS BLOOD BASE EXCESS 8.8 mmol/L; VENOUS BLOOD HCO3 35.2 mmol/L (20-32); VENOUS BLOOD PCO2 56.1 mmHg (35-63); VENOUS BLOOD PH 7.42 (7.30-7.42)
[2018-09-03] MEDS ORDERED: DIAZEPAM INJ 10 MG/2 ML DISP.SYRIN IV ONE (18:48)
[2018-09-03 18:56] LABS: APPEARANCE,URINE CLEAR; BILIRUBIN,URINE NEGATIVE (NEGATIVE); COLOR,URINE YELLOW; GLUCOSE, URINE NEGATIVE (NEGATIVE); KETONES,URINE NEGATIVE (NEGATIVE); LEUKOCYTE ESTERASE,URINE NEGATIVE (NEGATIVE); NITRITE,URINE NEGATIVE (NEGATIVE); PROTEIN,URINE NEGATIVE (NEGATIVE); URINE SPECIFIC GRAVITY 1.004; UROBILINOGEN,URINE NEGATIVE mg/dL (<2.0)
[2018-09-03] MEDS ORDERED: IPRATROPIUM/ALBUTEROL 0.5-2.5 MG/3 ML AMPUL NEB ONE (19:01)
[2018-09-03] MEDS ORDERED: METHYLPREDNISOLONE INJ 125 MG/2 ML SDV IV ONE (19:01)
[2018-09-03] MEDS ORDERED: NORMAL SALINE 1000 ML 1,000 ML IV ONE (19:02)
[2018-09-03 19:05] LABS: ALANINE AMINOTRANSFERASE 17 U/L (21-72); ALKALINE PHOSPHATASE 94 U/L (38-126); ANION GAP 8 (5-19); ASPARTATE AMINO TRANSFERASE 30 U/L (17-59); BILIRUBIN,DIRECT 0.4 mg/dL (0.0-0.4); BILIRUBIN,TOTAL 0.7 mg/dL (0.2-1.3); BLOOD UREA NITROGEN 12 mg/dL (7-20); CALCIUM 9.8 mg/dL (8.4-10.2); CARBON DIOXIDE 36 mmol/L (22-30); CHLORIDE 94 mmol/L (98-107); GLUCOSE 107 mg/dL (75-110); POTASSIUM 3.9 mmol/L (3.6-5.0); SODIUM 137.9 mmol/L (137-145)
--- NOTE | 2018-09-03 19:09 | RADIOLOGY REPORT (SQ) ---
EXAM DESCRIPTION: CHEST SINGLE VIEW COMPLETED DATE/TIME: 09/03/2018 6:59 pm REASON FOR STUDY: sob COMPARISON: 12/04/2017 EXAM PARAMETERS: NUMBER OF VIEWS: One view. TECHNIQUE: Single frontal radiographic view of the chest acquired. RADIATION DOSE: NA LIMITATIONS: None. FINDINGS: LUNGS AND PLEURA: Stable areas of pulmonary fibrosis in the lung bases and to lesser degre e the right upper lobe. No obvious superimposed pneumonia. MEDIASTINUM AND HILAR STRUCTURES: Stable. HEART AND VASCULAR STRUCTURES: Stable cardiomegaly. BONES: No acute findings. HARDWARE: None in the chest. OTHER: No other significant finding. IMPRESSION: Pulmonary fibrosis. No acute findings. TECHNICAL DOCUMENTATION: JOB ID: [id number] [employer]- All Rights Reserved Reading location - IP/workstation name: [email or web address]
[2018-09-03 19:15] LABS: NT PRO BNP 863 pg/mL (<450); TROPONIN I < 0.012 ng/mL
--- NOTE | 2018-09-03 21:21 | RADIOLOGY REPORT (SQ) ---
EXAM DESCRIPTION: CTA CHEST COMPLETED DATE/TIME: 09/03/2018 8:26 pm REASON FOR STUDY: sob, difficulty breathing, eval pe COMPARISON: 02/24/2018 TECHNIQUE: CT scan of the chest performed using helical scanning technique with dynamic intravenous contrast injection. Images reviewed with lung, soft tissue and bone windows. Reconstructed coronal and sagittal MPR images reviewed. Additional 3 dimensional post-processing performed to develop Maximal Intensity Projection images ([place] P). All images stored on PACS. All CT scanners at this facility use dose modulation, iterative reconstruction, and/or weight based d osing when appropriate to reduce radiation dose to as low as reasonably achievable (ALARA). [facility]: Dose Right [facility]: CareDose [facility]: Dose Right [facility]: Teradose 4D [facility]: [employer] CONTRAST TYPE AND DOSE: contrast/concentration: Isovue 350.00 mg/ml; Total Contrast Delivered: 73.0 ml; Total Saline Delivered: 77.0 ml Contrast bolus optimized for the pulmonary arteries. Not diagnostic for the aorta. RENAL FUNCTION: GFR > 60. RADIATION DOSE: CT Rad equipment meets quality standard of care and radiation dose reduction techniq ues were employed. CTDIvol: 17.4 - 29.8 mGy. DLP: 621 mGy-cm. . LIMITATIONS: None. FINDINGS: LUNGS AND PLEURA: Enlarged right parahilar mass currently measuring 2.2 cm, previously 1.7 cm and similar plane of measurement. Extensive fibrotic disease bilaterally. No pneumothorax. AORTA AND GREAT VESSELS: No aneurysm. Contrast bolus not optimized for the aorta. HEART: No pericardial effusion. Moderate coronary artery calcifications. PULMONARY ARTERIES: No emboli visualized in the main pulmonary arteries or the segmental branches. HILAR AND MEDIASTINAL STRUCTURES: Similar mediastinal and hilar abnormal nodes. HARDWARE: None in the chest. UPPER ABDOMEN: No significant findings. Limited exam. THYROID AND OTHER SOFT TISSUES: No masses. No adenopathy. BONES: No acutefinding. 3D MIPS: Confirm above findings. OTHER: No other significant finding. IMPRESSION: No emboli visualized in the main pulmonary arteries or the segmental branches. Enlarged right parahilar mass currently measuring 2.2 cm, previously 1.7 cm and similar plane of dipti urement. Extensive fibrotic disease bilaterally. COMMENT: Quality ID # [id number]: Final reports with documentation of one or more dose reduction techniques (e.g., Automated exposure control, adjustment of the mA and/or kV according to patient size, use of iterative reconstruction technique) TECHNICAL DOCUMENTATION: JOB ID: [id number] [place]-72 2010 [employer]- All Rights Reserved Reading location - IP/workstation name: [email or web address]
[2018-09-03] MEDS ORDERED: LEVOFLOXACIN 750 MG/D5W RTU 750 MG/150 ML RTUPB IV ONE (22:09)
[2018-09-03] MEDS ORDERED: IPRATROPIUM/ALBUTEROL 0.5-2.5 MG/3 ML AMPUL NEB PRN (22:33)
[2018-09-03] MEDS ORDERED: KETOROLAC TROMETHAMINE INJ/PF 30 MG/1 ML SDV IV PRN (22:33)
[2018-09-03] MEDS ORDERED: HYDRALAZINE HCL INJ/PF 20 MG/1 ML SDV IV PRN (22:33)
[2018-09-03] MEDS ORDERED: GUAIFENESIN SYRP 200 MG/10 ML UDC PO PRN (22:33)
[2018-09-03] MEDS ORDERED: ACETAMINOPHEN 325 MG TABLET PO PRN (22:33)
[2018-09-03] MEDS ORDERED: HEPARIN SOD (PORCINE) 5,000 UNIT/ML 1 ML SYRINGE SUBCUT ONE (22:45)
[2018-09-03] MEDS ORDERED: DILTIAZEM HCL 60 MG TABLET PO ONE (23:30)
[2018-09-03] MEDS ORDERED: CHLORPHENIRAMINE MALEATE 4 MG TABLET PO ONE (23:30)
[2018-09-03] MEDS ORDERED: FLUTICASONE NASAL SPRAY 50 MCG/SPRY 120 SPRAY/16 GM NASL ONE (23:30)
[2018-09-04] MEDS: IPRATROPIUM/ALBUTEROL 0.5-2.5 MG/3 ML AMPUL NEB SCH ×2 (01:55→08:09)
[2018-09-04] MEDS ORDERED: FLUTICASONE NASAL SPRAY 50 MCG/SPRY 120 SPRAY/16 GM ONE (05:12)
[2018-09-04 05:24] LABS: ABSOLUTE LYMPHOCYTES (AUTO) 0.2 10^3/uL (0.5-4.7); ABSOLUTE MONOCYTES (AUTO) 0.1 10^3/uL (0.1-1.4); ABSOLUTE NEUT (AUTO) 6.1 10^3/uL (1.7-8.2); BASOPHILS % (AUTO) 0.1 % (0-2); HEMATOCRIT 37.6 % (37.9-51.0); HEMOGLOBIN 12.4 g/dL (13.5-17.0); LYMPHOCYTES % (AUTO) 3.5 % (13-45); MEAN CORPUSCULAR HEMOGLOBIN 25.9 pg (27.0-33.4); MEAN CORPUSCULAR HGB CONC 32.9 g/dL (32.0-36.0); MEAN CORPUSCULAR VOLUME 79 fl (80-97); PLATELET COUNT 243 10^3/uL (150-450); RED BLOOD COUNT 4.77 10^6/uL (4.35-5.55); RED CELL DISTRIBUTION WIDTH 16.8 % (11.5-14.0); SEGMENTED NEUTROPHILS % (AUTO) 94.4 % (42-78); TOTAL CELLS COUNTED % (AUTO) 100 %; WHITE BLOOD COUNT 6.5 10^3/uL (4.0-10.5)
[2018-09-04 05:42] LABS: ANION GAP 12 (5-19); BLOOD UREA NITROGEN 10 mg/dL (7-20); CALCIUM 9.1 mg/dL (8.4-10.2); CARBON DIOXIDE 28 mmol/L (22-30); CHLORIDE 97 mmol/L (98-107); GLUCOSE 143 mg/dL (75-110); POTASSIUM 4.2 mmol/L (3.6-5.0); SODIUM 136.6 mmol/L (137-145)
[2018-09-04] MEDS: LANSOPRAZOLE 30 MG TAB.RAP.DR PO SCH ×2 (06:18→17:24)
[2018-09-04] MEDS: DILTIAZEM HCL 60 MG TABLET PO SCH ×3 (06:18→17:24)
[2018-09-04] MEDS: METHYLPREDNISOLONE INJ 125 MG/2 ML SDV IV SCH ×3 (06:18→22:49)
[2018-09-04] MEDS: HEPARIN SOD (PORCINE) 5,000 UNIT/ML 1 ML SYRINGE SUBCUT SCH ×3 (06:19→23:38)
--- NOTE | 2018-09-04 06:22 | PDOC H&P ---
History of Present Illness Admission Date/PCP: 09/03/18 22:34 ENID STINSON PA-C Patient complains of: Shortness of breath History of Present Illness: DAVID LA is a 78 year old male with a past medical history of coronary artery disease status post coronary artery stenting 1 month ago, hyponatremia, oxygen dependent pulmonary fibrosis. Presents with cough and shortness of breath. In the emergency room he is found to have tachypnea at 50 breaths per minute, hypoxia of 88% on 4 L of oxygen, enlarged perihilar mass on CT. he is placed on BiPAP, Solu-Medrol, empiric antibiotics. He refuses transfer to tertiary care verifies DNR DNI CODE STATUS. Patient admits to coughing while eating in addition to uncontrolled GERD. Denies fever, rhinorrhea or sore throat. Past Medical History Cardiac Medical History: Reports: Congestive Heart Failure, Coronary Artery Disease, Hypertension Pulmonary Medical History: Reports: Chronic Obstructive Pulmonary Disease (COPD) , Pneumonia Psychiatric Medical History: Denies: Depression Past Surgical History Past Surgical History: Reports: Cardiac Catheterization, Other - chest tube placement Social History Information Source: Patient, Emergency Med Personnel, [facility] Records Lives with: Spouse/Significant other Smoking Status: Former Smoker Frequency of Alcohol Use: None Hx Recreational Drug Use: No Drugs: None Hx Prescription Drug Abuse: No - Advance Directive Resuscitation Status: Do Not Resuscitate Family History Family History: Malignancy, Other Parental Family History Reviewed: Yes Children Family History Reviewed: Yes Sibling(s) Family History Reviewed.: Yes Medication/Allergy Home Medications: Albuterol Sulfate [Ventolin HFA MDI 18 GM] 2 puff IH Q4HP PRN 12/01/17 Dutasteride [Avodart Lf 0.5 mg Capsule] 0.5 mg PO DAILY 12/01/17 Ezetimibe [Zetia 10 mg Tablet] 10 mg PO QHS 12/01/17 Fluticasone Propionate [Flonase Nasal [place] 50 Mcg/[place] 16 gm] 2 spray NAREB BID 12/01/17 Lisinopril [Prinivil 40 mg Tablet] 40 mg PO DAILY 12/01/17 Metoprolol Tartrate [Lopressor 100 mg Tablet] 100 mg PO Q12 12/01/17 Tamsulosin HCl [Flomax 0.4 mg Cap.sr] 0.4 mg PO DAILY 12/01/17 Umeclidinium Brm/Vilanterol Tr [Anoro Ellipta 62.5-25 Mcg INH] 1 each IH DAILY 12/01/17 Aspirin [Aspirin 81 mg Chewable Tablet] 81 mg PO DAILY 09/04/18 Atorvastatin Calcium [Lipitor 40 mg Tablet] 40 mg PO QHS 09/04/18 Budesonide 0.25 mg IH BID 09/04/18 Clonazepam 0.5 mg PO BID PRN 09/04/18 Clopidogrel Bisulfate [Plavix 75 mg Tablet] 75 mg PO DAILY 09/04/18 Multivit with Calcium,Iron,Min [Women's Daily Formula] 1 each PO QHS 09/04/18 Omeprazole Magnesium [Prilosec Otc] 20 mg PO BID 09/04/18 Prednisone 60 mg PO QAM 09/04/18 Sertraline HCl [Zoloft] 25 mg PO DAILY 09/04/18 Sucralfate [Carafate 1 gm Tablet] 1 gm PO QID 09/04/18 Tolvaptan [Samsca 15 mg Tablet] 15 mg PO DAILY 09/04/18 Allergies/Adverse Reactions: No Known Allergies Allergy (Unverified 12/01/17 19:36) Review of Systems ROS unobtainable: Due to mental status - Shortness of breath Physical Exam Vital Signs: Temp Pulse Resp BP Pulse Ox 97.7 F 88 22 H 123/58 L 100 09/04/18 03:37 09/04/18 03:37 09/04/18 03:37 09/04/18 03:37 09/04/18 03:37 Intake & Output 09/02/18 09/03/18 09/04/18 11:59 11:59 11:59 Intake Total 150 Balance 150 Weight 73.5 kg General appearance: PRESENT: cooperative, severe distress, thin. ABSENT: disheveled Head exam: PRESENT: atraumatic, normocephalic Eye exam: PRESENT: conjunctiva pink, EOMI, PERRLA. ABSENT: scleral icterus Ear exam: PRESENT: normal external ear exam Mouth exam: PRESENT: moist, tongue midline Neck exam: ABSENT: carotid bruit, JVD, lymphadenopathy, thyromegaly Respiratory exam: PRESENT: accessory muscle use, crackles, decreased breath sounds, prolonged expiratory phas, retraction, symmetrical, tachypnea Cardiovascular exam: PRESENT: RRR, tachycardia. ABSENT: diastolic murmur, rubs , systolic murmur Pulses: PRESENT: normal dorsalis pedis pul Vascular exam: PRESENT: normal capillary refill GI/Abdominal exam: PRESENT: normal bowel sounds, soft. ABSENT: distended, guarding, mass, organolmegaly, rebound, tenderness Rectal exam: PRESENT: deferred Extremities exam: PRESENT: full ROM. ABSENT: calf tenderness, clubbing, pedal edema Neurological exam: PRESENT: alert, awake, oriented to person, oriented to place , oriented to time, oriented to situation, CN II-XII grossly intact. ABSENT: motor sensory deficit Psychiatric exam: PRESENT: appropriate affect, normal mood. ABSENT: homicidal ideation, suicidal ideation Skin exam: PRESENT: dry, intact, warm. ABSENT: cyanosis, rash Results Laboratory Results: 09/04/18 04:48 09/04/18 04:48 WBC 6.5 RBC 4.77 Hgb 12.4 L Hct 37.6 L MCV 79 L MCH 25.9 L MCHC 32.9 RDW 16.8 H Plt Count 243 Seg Neutrophils % 94.4 H Lymphocytes % 3.5 L Monocytes % 2.0 L Eosinophils % 0.0 Basophils % 0.1 Absolute Neutrophils 6.1 Absolute Lymphocytes 0.2 L Absolute Monocytes 0.1 Absolute Eosinophils 0.0 Absolute Basophils 0.0 Impressions: Chest X-Ray 09/03/18 18:10 IMPRESSION: Pulmonary fibrosis. No acute findings. Chest/Abdomen CTA 09/03/18 19:24 IMPRESSION: No emboli visualized in the main pulmonary arteries or the segmental branches. Enlarged right parahilar mass currently measuring 2.2 cm, previously 1.7 cm and similar plane of measurement. Extensive fibrotic disease bilaterally. Assessment & Plan - Diagnosis (1) Acute and chronic respiratory failure Qualifiers: Respiratory failure complication: hypoxia Qualified Code(s): J96.21 - Acute and chronic respiratory failure with hypoxia Is this a current diagnosis for this admission?: Yes Plan: Secondary to advanced pulmonary fibrosis, complicated by new perihilar mass, aspiration and GERD. Admission to [facility] with pneumonia care set, aggressive pulmonary toilet, BiPAP and pulmonology consult (2) GERD (gastroesophageal reflux disease) Is this a current diagnosis for this admission?: Yes Plan: PPI twice daily (3) Aspiration into airway Is this a current diagnosis for this admission?: Yes Plan: Speech therapy consult (4) Coronary artery disease Is this a current diagnosis for this admission?: Yes Plan: Serial cardiac enzymes (5) Pulmonary fibrosis Is this a current diagnosis for this admission?: Yes Plan: Steroids and pulmonary consult (6) Pneumonia Qualifiers: Laterality: bilateral Is this a current diagnosis for this admission?: Yes Plan: Empiric antibiotics, follow-up blood culture - Time Time Spent: Greater than 70 Minutes - Inpatient Certification Medical Necessity: Need Close Monitoring Due to Risk of Patient Decompensation
--- NOTE | 2018-09-04 07:55 | EKG REPORT ---
SEVERITY:- ABNORMAL ECG - SINUS TACHYCARDIA PROBABLE LEFT ATRIAL ABNORMALITY RIGHT BUNDLE BRANCH BLOCK LAFB : Confirmed by: Jimmy Grant MD 04-Sep-2018 07:54:32
[2018-09-04] MEDS ORDERED: (PENDING PHARMACY ID) (Clonazepam [Clonazepam] 0.5 MG) PO PRN (08:32)
[2018-09-04] MEDS ORDERED: CLONAZEPAM 1 MG TABLET PO PRN (08:51)
[2018-09-04] MEDS ORDERED: (PENDING PHARMACY ID) (Sertraline Hcl [Zoloft] 25 MG) PO SCH (10:00)
[2018-09-04] MEDS ORDERED: SERTRALINE HCL 50 MG TABLET PO SCH (10:00)
[2018-09-04] MEDS ORDERED: CLONAZEPAM 1 MG TABLET PO ONE (10:42)
[2018-09-04] MEDS ORDERED: FUROSEMIDE 20 MG TABLET PO ONE (10:45)
[2018-09-04] MEDS: LISINOPRIL 10 MG TABLET PO SCH (11:12)
[2018-09-04] MEDS: SUCRALFATE 1 GM TABLET PO SCH ×4 (11:12→22:48)
[2018-09-04] MEDS: TAMSULOSIN HCL 0.4 MG CAP.SR.24H PO SCH (11:12)
[2018-09-04] MEDS: SERTRALINE HCL 50 MG TABLET PO SCH (11:12)
[2018-09-04] MEDS: ASPIRIN 81 MG TABLET, CHEWABLE PO SCH (11:12)
[2018-09-04] MEDS: CLOPIDOGREL BISULFATE 75 MG TABLET PO SCH (11:13)
[2018-09-04] MEDS: FLUTICASONE NASAL SPRAY 50 MCG/SPRY 120 SPRAY/16 GM NASL SCH ×2 (11:13→22:48)
[2018-09-04] MEDS: DUTASTERIDE 0.5 MG CAPSULE PO SCH (11:13)
[2018-09-04] MEDS: IPRATROPIUM BROMIDE 0.02% NEB 0.5 MG/2.5 ML AMPUL NEB SCH ×2 (13:39→20:04)
[2018-09-04] MEDS: LEVALBUTEROL HCL NEB 1.25 MG/3 ML AMPUL NEB SCH ×2 (13:39→20:04)
--- NOTE | 2018-09-04 13:42 | EKG REPORT ---
SEVERITY:- ABNORMAL ECG - SINUS TACHYCARDIA WITH IRREGULAR RATE [id number] RIGHT BUNDLE BRANCH BLOCK : Confirmed by: Jimmy Grant MD 04-Sep-2018 13:41:50
--- NOTE | 2018-09-04 15:23 | PDOC PROGRESS REPORT ---
Subjective Progress Note for:: 09/04/18 Subjective:: The patient is a 78-year-old male with a past medical history of hypertension, hyperlipidemia, CHF, CAD (stents x5 1 month ago), emphysema with spontaneous pneumothorax and VATS procedure done in November 2017, home oxygen dependent, and hyponatremia who was admitted 09/03/18 for acute on chronic respiratory failure secondary to severe pulmonary fibrosis and COPD exacerbation. Patient was seen on morning rounds. For the first portion of our visit, Dr. Reyna was present. The patient is noted to be sitting high Sorto's in bed on supplemental oxygen at 4 L/min. He has 2-3 word tachypnea. He reports two or three days of progressively worsening nonproductive cough and dyspnea. He endorses baseline dyspnea and three pillow orthopnea, but is typically fully conversational. He denies fever, chills, headache, chest pain, palpitations, abdominal pain, nausea and vomiting. His does report that the patient has appeared slightly more forgetful and confused than is his baseline, which she attributes to hyponatremia (Na 136.6 today). He requests to resume his Zoloft; he reports that his anxiety has drastically worsened after discontinuing the medication. Otherwise, he has no specific questions or concerns at this time but does asked that I return this afternoon to talk with him again. No concerns per at this time. Reason For Visit: ACUTE ON CHRONIC RESP FAILURE PULM FIBROSIS Physical Exam Vital Signs: Temp Pulse Resp BP Pulse Ox 98.0 F 102 H 24 H 148/80 H 99 09/04/18 11:45 09/04/18 11:45 09/04/18 11:45 09/04/18 11:45 09/04/18 11:45 Intake & Output 09/03/18 09/04/18 09/05/18 06:59 06:59 06:59 Intake Total 150 Balance 150 Weight 73.5 kg General appearance: PRESENT: hard of hearing, well-developed, well-nourished, other - moderate distress Head exam: PRESENT: atraumatic, normocephalic Eye exam: PRESENT: conjunctiva pink, EOMI, PERRLA. ABSENT: scleral icterus Ear exam: PRESENT: normal external ear exam Mouth exam: PRESENT: moist, tongue midline Neck exam: ABSENT: carotid bruit, JVD, lymphadenopathy, thyromegaly Respiratory exam: PRESENT: accessory muscle use, crackles - Right base, prolonged expiratory phas, retraction, rhonchi, symmetrical, tachypnea, other - Supplemental oxygen via nasal cannula at 4 L/min. ABSENT: rales, wheezes Cardiovascular exam: PRESENT: RRR, tachycardia. ABSENT: diastolic murmur, rubs , systolic murmur Pulses: PRESENT: normal dorsalis pedis pul Vascular exam: PRESENT: normal capillary refill GI/Abdominal exam: PRESENT: normal bowel sounds, soft. ABSENT: distended, guarding, mass, organolmegaly, rebound, tenderness Rectal exam: PRESENT: deferred Extremities exam: PRESENT: full ROM. ABSENT: calf tenderness, clubbing, pedal edema Neurological exam: PRESENT: alert, awake, oriented to person, oriented to place , oriented to time, oriented to situation, CN II-XII grossly intact, other - Forgetful. ABSENT: motor sensory deficit Psychiatric exam: PRESENT: anxious, appropriate affect, normal mood. ABSENT: homicidal ideation, suicidal ideation Skin exam: PRESENT: dry, intact, warm. ABSENT: cyanosis, rash Results Laboratory Results: 09/04/18 04:48 09/04/18 04:48 09/04/18 09/04/18 04:48 04:48 WBC 6.5 RBC 4.77 Hgb 12.4 L Hct 37.6 L MCV 79 L MCH 25.9 L MCHC 32.9 RDW 16.8 H Plt Count 243 Seg Neutrophils % 94.4 H Lymphocytes % 3.5 L Monocytes % 2.0 L Eosinophils % 0.0 Basophils % 0.1 Absolute Neutrophils 6.1 Absolute Lymphocytes 0.2 L Absolute Monocytes 0.1 Absolute Eosinophils 0.0 Absolute Basophils 0.0 Sodium 136.6 L Potassium 4.2 Chloride 97 L Carbon Dioxide 28 Anion Gap 12 BUN 10 Creatinine 0.54 Est GFR ( Amer) > 60 Est GFR (Non-Af Amer) > 60 Glucose 143 H Calcium 9.1 Impressions: Chest X-Ray 09/03/18 18:10 IMPRESSION: Pulmonary fibrosis. No acute findings. Chest/Abdomen CTA 09/03/18 19:24 IMPRESSION: No emboli visualized in the main pulmonary arteries or the segmental branches. Enlarged right parahilar mass currently measuring 2.2 cm, previously 1.7 cm and similar plane of measurement. Extensive fibrotic disease bilaterally. Assessment & Plan - Diagnosis (1) Acute and chronic respiratory failure Qualifiers: Respiratory failure complication: hypoxia Qualified Code(s): J96.21 - Acute and chronic respiratory failure with hypoxia Is this a current diagnosis for this admission?: Yes Plan: The patient was admitted with 2-3 days of progressively worsening nonproductive cough and dyspnea. He was found to be tachypneic with a RR of 50 and hypoxia on his baseline oxygen. CXR revealed pulmonary fibrosis without acute findings. Chest/ABD CTA demonstrated enlarged right perihilar mass currently measuring 2.2 cm, previously 1.7 cm and extensive fibrotic disease bilaterally without pulmonary embolus. (2) COPD exacerbation Is this a current diagnosis for this admission?: Yes Plan: Patient with severe COPD, pulmonary fibrosis, new perihilar mass and presented in acute on chronic respiratory failure with hypoxia. He endorses 2-3 days of worsened sputum production and dyspnea. He denies recent fever or chills. Imaging as above. Blood cultures pending. He is admitted to [facility] on continuous cardiac telemetry. He is provided supplemental oxygen and BiPAP as needed to maintain oxygen saturations greater than 88%. He is hesitant to use BiPAP due to claustrophobia ; this is strongly encouraged by both myself and Dr. Reyna today. He is recommended to try to maintain at least 2 consistent hours of BiPAP several times daily. He is provided IV Solu-Medrol, scheduled and as needed nebulizer treatments, Mucinex, and empiric Levaquin for presumed bronchitis. Pulmonology is consulted; appreciate Dr. Reyna's expertise. (3) Pulmonary fibrosis Is this a current diagnosis for this admission?: Yes Plan: Plan as above. (4) Aspiration into airway Is this a current diagnosis for this admission?: Yes Plan: The patient reports hiatal hernia with frequent reflux. She is placed on a PPI. Head of bed elevated. Speech therapy is consulted. (5) Coronary artery disease Is this a current diagnosis for this admission?: Yes Plan: Patient reports coronary artery disease with recent cardiac cath resulting in 5 stents. Denies current chest pain; does endorse severe dyspnea at rest and orthopnea. EKG with sinus tachycardia; irregular rate 96-158. Right bundle branch block. Initial troponin is negative. proBNP is slightly elevated to 863. Cardiac diet. Continue daily aspirin, Plavix, and statin therapy. He is monitored on continuous cardiac telemetry. (6) GERD (gastroesophageal reflux disease) Is this a current diagnosis for this admission?: Yes Plan: Continue Prevacid and Carafate. (7) BPH (benign prostatic hyperplasia) Is this a current diagnosis for this admission?: Yes Plan: Home dose flomax and avodart. (8) HLD (hyperlipidemia) Is this a current diagnosis for this admission?: Yes Plan: Cardiac diet. Nightly atorvastatin and Zetia. (9) Hypertension Is this a current diagnosis for this admission?: Yes Plan: Cardiac diet. Continue home dose lisinopril. Placed on diltiazem; will continue to monitor HR/BP and make adjustments as needed. (10) Anxiety Is this a current diagnosis for this admission?: Yes Plan: Resume Zoloft. Clonazepam 0.5 mg every 6 hours as needed. - Time Time Spent with patient: 35 or more minutes Medications reviewed and adjusted accordingly: Yes Anticipated discharge: Home - Inpatient Certification Based on my medical assessment, after consideration of the patient's comorbidities, presenting symptoms, or acuity I expect that the services needed warrant INPATIENT care.: Yes I certify that my determination is in accordance with my understanding of Medicare's requirements for reasonable and necessary INPATIENT services [42 CFR 412.3e].: Yes Medical Necessity: Failure to Improve With Outpatient Therapy, Significant Comorbidiites Make Outpatient Treatment Too Risky, Need Close Monitoring Due to Risk of Patient Decompensation, Need For Continuous Telemetry Monitoring, Need for Nebulizer Therapy and Monitoring of Response
[2018-09-04] MEDS ORDERED: DILTIAZEM HCL 30 MG TABLET PO ONE (16:00)
[2018-09-04] MEDS: CLONAZEPAM 1 MG TABLET PO PRN ×3 (17:26→23:19)
[2018-09-04] MEDS ORDERED: ALPRAZOLAM 0.5 MG TABLET PO SCH (22:00)
[2018-09-04] MEDS ORDERED: MULTIVIT WITH CALCIUM IRON MIN PO SCH (22:00)
[2018-09-04] MEDS: EZETIMIBE 10 MG TABLET PO SCH ×2 (22:00→22:50)
[2018-09-04] MEDS: ATORVASTATIN CALCIUM 40 MG TABLET PO SCH (22:48)
[2018-09-04] MEDS: GUAIFENESIN 600 MG TABLET.SA PO SCH (22:48)
[2018-09-04] MEDS: LEVOFLOXACIN 750 MG/D5W RTU 750 MG/150 ML RTUPB IV SCH (22:49)
[2018-09-04] MEDS: MULTIVITAMIN TABLET PO SCH (22:50)
[2018-09-05] MEDS: DILTIAZEM HCL 60 MG TABLET PO SCH ×3 (00:22→12:16)
[2018-09-05] MEDS ORDERED: CLONAZEPAM 1 MG TABLET PO ONE (00:30)
[2018-09-05] MEDS: IPRATROPIUM BROMIDE 0.02% NEB 0.5 MG/2.5 ML AMPUL NEB SCH ×4 (02:01→20:05)
[2018-09-05] MEDS: LEVALBUTEROL HCL NEB 1.25 MG/3 ML AMPUL NEB SCH ×4 (02:01→20:05)
[2018-09-05 05:36] LABS: HEMATOCRIT 35.1 % (37.9-51.0); HEMOGLOBIN 11.6 g/dL (13.5-17.0); MEAN CORPUSCULAR HEMOGLOBIN 25.7 pg (27.0-33.4); MEAN CORPUSCULAR HGB CONC 33.2 g/dL (32.0-36.0); MEAN CORPUSCULAR VOLUME 77 fl (80-97); PLATELET COUNT 253 10^3/uL (150-450); RED BLOOD COUNT 4.53 10^6/uL (4.35-5.55); RED CELL DISTRIBUTION WIDTH 17.3 % (11.5-14.0); WHITE BLOOD COUNT 8.1 10^3/uL (4.0-10.5)
[2018-09-05 06:01] LABS: ALANINE AMINOTRANSFERASE 23 U/L (21-72); ALKALINE PHOSPHATASE 61 U/L (38-126); ANION GAP 10 (5-19); ASPARTATE AMINO TRANSFERASE 15 U/L (17-59); BILIRUBIN,DIRECT 0.2 mg/dL (0.0-0.4); BILIRUBIN,TOTAL 0.6 mg/dL (0.2-1.3); BLOOD UREA NITROGEN 15 mg/dL (7-20); CALCIUM 9.3 mg/dL (8.4-10.2); CARBON DIOXIDE 27 mmol/L (22-30); CHLORIDE 96 mmol/L (98-107); GLUCOSE 129 mg/dL (75-110); POTASSIUM 3.8 mmol/L (3.6-5.0); SODIUM 132.8 mmol/L (137-145); TOTAL PROTEIN 5.9 g/dL (6.3-8.2)
[2018-09-05 06:23] LABS: ABSOLUTE LYMPHOCYTES# (MANUAL) 0.1 10^3/uL (0.5-4.7); ABSOLUTE MONOCYTES # (MANUAL) 0.2 10^3/uL (0.1-1.4); ABSOLUTE NEUTROPHILS# (MANUAL) 7.9 10^3/uL (1.7-8.2); BASOPHILS % (MANUAL) 0 % (0-2); EOSINOPHILS % (MANUAL) 0 % (0-6); HYPERSEGMENTED NEUTROPHILS PRESENT; LYMPHOCYTES % (MANUAL) 1 % (13-45); MONOCYTES % (MANUAL) 2 % (3-13); SEGMENTED NEUTROPHILS % (MAN) 97 % (42-78); TOTAL CELLS COUNTED 100
[2018-09-05 06:24] LABS: ANISOCYTOSIS SLIGHT; OVALOCYTES SLIGHT; PLATELET COMMENT ADEQUATE; POIKILOCYTOSIS SLIGHT
[2018-09-05] MEDS: METHYLPREDNISOLONE INJ 125 MG/2 ML SDV IV SCH ×3 (07:45→21:33)
[2018-09-05] MEDS: LANSOPRAZOLE 30 MG TAB.RAP.DR PO SCH ×2 (07:46→17:47)
[2018-09-05] MEDS: CLONAZEPAM 1 MG TABLET PO PRN ×2 (07:47→14:12)
[2018-09-05] MEDS: HEPARIN SOD (PORCINE) 5,000 UNIT/ML 1 ML SYRINGE SUBCUT SCH ×3 (08:02→21:36)
[2018-09-05] MEDS: LISINOPRIL 10 MG TABLET PO SCH (09:23)
[2018-09-05] MEDS: SUCRALFATE 1 GM TABLET PO SCH ×4 (09:23→21:30)
[2018-09-05] MEDS: CLOPIDOGREL BISULFATE 75 MG TABLET PO SCH (09:23)
[2018-09-05] MEDS: ASPIRIN 81 MG TABLET, CHEWABLE PO SCH (09:23)
[2018-09-05] MEDS: TAMSULOSIN HCL 0.4 MG CAP.SR.24H PO SCH (09:23)
[2018-09-05] MEDS: FLUTICASONE NASAL SPRAY 50 MCG/SPRY 120 SPRAY/16 GM NASL SCH ×2 (09:23→21:32)
[2018-09-05] MEDS: DUTASTERIDE 0.5 MG CAPSULE PO SCH (09:23)
[2018-09-05] MEDS: SERTRALINE HCL 50 MG TABLET PO SCH (09:23)
[2018-09-05] MEDS: GUAIFENESIN 600 MG TABLET.SA PO SCH ×2 (09:23→21:29)
--- NOTE | 2018-09-05 12:36 | PDOC CONSULTATION ---
Consultation Consult Date: 09/04/18 Attending physician:: YARELIS POLLARD Consult reason:: Acute on chronic respiratory failure History of Present Illness Admission Date/PCP: 09/03/18 22:34 ENID STINSON PA-C History of Present Illness: DAVID LA is a 78 year old male multiple medical problems dyspnea on exertion which Are typically worse in November 2017 after a pneumothorax he required hospitalization at [facility] somewhere in that scenario he also developed pulmonary emboli was had felt to have coronary artery disease and had 5 stents after coronary artery catheterization presents increasing short of breath and cough increased dips E has not improved since November he has a cough productive of some white phlegm with some yellow streaks he currently denies any hemoptysis he is on high flow oxygen and has shortness of breath at rest as well as any attempt to exert himself. Review of his CT scan shows advanced pulmonary fibrosis UIP pattern as well as apical blebs 1-1/2-2 packs a day for 20 years but has not smoked in the last 40 years. 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 Past Medical History Cardiac Medical History: Reports: Congestive Heart Failure, Coronary Artery Disease, Hypertension Pulmonary Medical History: Reports: Chronic Obstructive Pulmonary Disease (COPD) , Pneumonia Psychiatric Medical History: Denies: Depression Past Surgical History Past Surgical History: Reports: Cardiac Catheterization, Other - chest tube placement Social History Information Source: Patient, Relative, [facility] Records Lives with: Spouse/Significant other Smoking Status: Former Smoker Passive smoke exposure as: Both Frequency of Alcohol Use: None Hx Recreational Drug Use: No Drugs: None Hx Prescription Drug Abuse: No Do you have pets?: Yes Have you had any respiratory illnesses as a child?: No Have you been exposed to any sick contacts recently?: No Have you had any recent respiratory illnesses?: No Have you travelled outside of [place] in the past 12 months?: No - Advance Directive Resuscitation Status: Do Not Resuscitate Family History Family History: CAD, Malignancy, Other Parental Family History Reviewed: Yes Children Family History Reviewed: Yes Sibling(s) Family History Reviewed.: Yes Medication/Allergy Home Medications: Albuterol Sulfate [Ventolin HFA MDI 18 GM] 2 puff IH Q4HP PRN 12/01/17 Dutasteride [Avodart Lf 0.5 mg Capsule] 0.5 mg PO DAILY 12/01/17 Ezetimibe [Zetia 10 mg Tablet] 10 mg PO QHS 12/01/17 Fluticasone Propionate [Flonase Nasal [place] 50 Mcg/[place] 16 gm] 2 spray NASL BID 12/01/17 Lisinopril [Prinivil 40 mg Tablet] 40 mg PO DAILY 12/01/17 Metoprolol Tartrate [Lopressor 100 mg Tablet] 100 mg PO Q12 12/01/17 Tamsulosin HCl [Flomax 0.4 mg Cap.sr] 0.4 mg PO DAILY 12/01/17 Aspirin [Aspirin 81 mg Chewable Tablet] 81 mg PO DAILY 09/04/18 Atorvastatin Calcium [Lipitor 40 mg Tablet] 40 mg PO QHS 09/04/18 Budesonide 0.25 mg IH BID 09/04/18 Clonazepam 0.5 mg PO BIDP PRN 09/04/18 Clopidogrel Bisulfate [Plavix 75 mg Tablet] 75 mg PO DAILY 09/04/18 Multivit with Calcium,Iron,Min [Women's Daily Formula] 1 each PO QHS 09/04/18 Omeprazole Magnesium [Prilosec Otc] 20 mg PO BID 09/04/18 Prednisone 60 mg PO QAM 09/04/18 Sucralfate [Carafate 1 gm Tablet] 1 gm PO Q6 09/04/18 Tolvaptan [Samsca 15 mg Tablet] 15 mg PO DAILY 09/04/18 Allergies/Adverse Reactions: No Known Allergies Allergy (Unverified 12/01/17 19:36) Review of Systems Constitutional: PRESENT: anorexia, fatigue, weakness. ABSENT: chills, fever(s) , night sweats Eyes: ABSENT: visual disturbances Ears: ABSENT: hearing changes Nose, Mouth, and Throat: ABSENT: sore throat Cardiovascular: PRESENT: dyspnea on exertion, orthropnea, palpitations. ABSENT : edema Respiratory: PRESENT: cough, sputum. ABSENT: dyspnea Gastrointestinal: PRESENT: dysphagia, heartburn. ABSENT: abdominal pain, bloating, coffee ground emesis, hematemesis, hematochezia, melena Genitourinary: PRESENT: nocturia. ABSENT: dysuria, hematuria Integumentary: ABSENT: pruritus, rash Neurological: ABSENT: abnormal gait, abnormal movements, abnormal speech, focal weakness, frequent falls, lack of coordination Psychiatric: ABSENT: hallucinations, homidical ideation, suicidal ideation Endocrine: ABSENT: cold intolerance, heat intolerance Hematologic/Lymphatic: ABSENT: easy bruising Allergic/Immunologic: ABSENT: seasonal rhinorrhea Physical Exam Vital Signs: Temp Pulse Resp BP Pulse Ox 97.8 F 102 H 22 H 152/71 H 96 09/04/18 07:25 09/04/18 07:25 09/04/18 07:25 09/04/18 07:25 09/04/18 07:25 Intake & Output 09/03/18 09/04/18 09/05/18 06:59 06:59 06:59 Intake Total 150 Balance 150 Weight 73.5 kg General appearance: PRESENT: cooperative, disheveled, mild distress, thin, well- developed, well-nourished Head exam: PRESENT: atraumatic, normocephalic Eye exam: PRESENT: conjunctiva pale, EOMI. ABSENT: nystagmus, periorbital swelling, scleral icterus Mouth exam: PRESENT: dry mucosa, neck supple, tongue midline Teeth exam: PRESENT: poor dentation Neck exam: ABSENT: carotid bruit, JVD, lymphadenopathy, thyromegaly, tracheal deviation, tracheostomy Respiratory exam: PRESENT: crackles, decreased breath sounds, prolonged expiratory phas, rhonchi, tachypnea, wheezes. ABSENT: retraction, stridor, unlabored Cardiovascular exam: PRESENT: irregular rhythm, +S1, +S2, tachycardia Pulses: PRESENT: normal radial pulses GI/Abdominal exam: PRESENT: soft. ABSENT: tenderness Extremities exam: ABSENT: calf tenderness, clubbing, joint swelling Musculoskeletal exam: ABSENT: deformity, dislocation Neurological exam: PRESENT: alert, awake Psychiatric exam: PRESENT: anxious Skin exam: PRESENT: dry, warm Results Laboratory Results: 09/04/18 04:48 09/04/18 04:48 09/04/18 09/04/18 04:48 04:48 WBC 6.5 RBC 4.77 Hgb 12.4 L Hct 37.6 L MCV 79 L MCH 25.9 L MCHC 32.9 RDW 16.8 H Plt Count 243 Seg Neutrophils % 94.4 H Lymphocytes % 3.5 L Monocytes % 2.0 L Eosinophils % 0.0 Basophils % 0.1 Absolute Neutrophils 6.1 Absolute Lymphocytes 0.2 L Absolute Monocytes 0.1 Absolute Eosinophils 0.0 Absolute Basophils 0.0 Sodium 136.6 L Potassium 4.2 Chloride 97 L Carbon Dioxide 28 Anion Gap 12 BUN 10 Creatinine 0.54 Est GFR ( Amer) > 60 Est GFR (Non-Af Amer) > 60 Glucose 143 H Calcium 9.1 Impressions: Chest X-Ray 09/03/18 18:10 IMPRESSION: Pulmonary fibrosis. No acute findings. Chest/Abdomen CTA 09/03/18 19:24 IMPRESSION: No emboli visualized in the main pulmonary arteries or the segmental branches. Enlarged right parahilar mass currently measuring 2.2 cm, previously 1.7 cm and similar plane of measurement. Extensive fibrotic disease bilaterally. Assessment & Plan - Diagnosis (1) Acute and chronic respiratory failure Qualifiers: Respiratory failure complication: hypoxia Qualified Code(s): J96.21 - Acute and chronic respiratory failure with hypoxia Is this a current diagnosis for this admission?: Yes (2) Anxiety Is this a current diagnosis for this admission?: Yes Plan: Resume home medications Klonopin and Zoloft (3) COPD exacerbation Is this a current diagnosis for this admission?: Yes Plan: Continue current therapy with bronchodilators laba long acting muscarinic agent some (4) Coronary artery disease Is this a current diagnosis for this admission?: Yes (5) GERD (gastroesophageal reflux disease) Is this a current diagnosis for this admission?: Yes Plan: Hiatal hernia not amenable surgical repair (6) Pulmonary fibrosis Is this a current diagnosis for this admission?: Yes Plan: End-stage
--- NOTE | 2018-09-05 16:39 | PDOC PROGRESS REPORT ---
Subjective Progress Note for:: 09/05/18 Subjective:: The patient is a 78-year-old male with a past medical history of hypertension, hyperlipidemia, CHF, CAD (stents x5 1 month ago), emphysema with spontaneous pneumothorax and VATS procedure done in November 2017, home oxygen dependent, and hyponatremia who was admitted 09/03/18 for acute on chronic respiratory failure secondary to severe pulmonary fibrosis and COPD exacerbation. Reason For Visit: ACUTE ON CHRONIC RESPIRATORY FAILURE. PULMONARY FIBROSIS Physical Exam Vital Signs: Temp Pulse Resp BP Pulse Ox 97.3 F 104 H 26 H 128/54 H 92 09/05/18 11:19 09/05/18 13:45 09/05/18 13:45 09/05/18 11:19 09/05/18 13:45 Intake & Output 09/04/18 09/05/18 09/06/18 06:59 06:59 06:59 Intake Total 150 2082 859 Output Total 1435 Balance 150 647 859 Weight 73.5 kg 73 kg General appearance: PRESENT: mild distress, well-developed, well-nourished Head exam: PRESENT: atraumatic Eye exam: PRESENT: conjunctiva pink, PERRLA Mouth exam: PRESENT: moist, neck supple Neck exam: PRESENT: full ROM Respiratory exam: PRESENT: symmetrical. ABSENT: tachypnea, unlabored - MILD LABORED BREATHING. EXACERBATED WITH PHYSICAL EXERTION Cardiovascular exam: PRESENT: +S1, +S2. ABSENT: systolic murmur Pulses: PRESENT: normal radial pulses, normal dorsalis pedis pul Vascular exam: PRESENT: normal capillary refill GI/Abdominal exam: PRESENT: normal bowel sounds, soft. ABSENT: tenderness Rectal exam: PRESENT: deferred Extremities exam: PRESENT: full ROM. ABSENT: pedal edema Musculoskeletal exam: PRESENT: ambulatory - WITH SUPPLEMENTAL O2. ONLY ABLE TO AMBULATE A FEW STEPS, full ROM, normal inspection Neurological exam: PRESENT: alert, awake, oriented to person, oriented to place , oriented to time, oriented to situation Psychiatric exam: PRESENT: appropriate affect Skin exam: PRESENT: dry, intact, normal color Results Laboratory Results: 09/05/18 04:45 09/05/18 04:45 09/05/18 09/05/18 04:45 04:45 WBC 8.1 RBC 4.53 Hgb 11.6 L Hct 35.1 L MCV 77 L MCH 25.7 L MCHC 33.2 RDW 17.3 H Plt Count 253 Seg Neutrophils % Not Reportable Lymphocytes % Not Reportable Monocytes % Not Reportable Eosinophils % Not Reportable Basophils % Not Reportable Absolute Neutrophils Not Reportable Absolute Lymphocytes Not Reportable Absolute Monocytes Not Reportable Absolute Eosinophils Not Reportable Absolute Basophils Not Reportable Sodium 132.8 L Potassium 3.8 Chloride 96 L Carbon Dioxide 27 Anion Gap 10 BUN 15 Creatinine 0.48 L Est GFR ( Amer) > 60 Est GFR (Non-Af Amer) > 60 Glucose 129 H Calcium 9.3 Total Bilirubin 0.6 AST 15 L ALT 23 Alkaline Phosphatase 61 Total Protein 5.9 L Albumin 3.0 L 09/04/18 09/04/18 15:40 21:40 Troponin I < 0.012 < 0.012 Impressions: Chest X-Ray 09/03/18 18:10 IMPRESSION: Pulmonary fibrosis. No acute findings. Chest/Abdomen CTA 09/03/18 19:24 IMPRESSION: No emboli visualized in the main pulmonary arteries or the segmental branches. Enlarged right parahilar mass currently measuring 2.2 cm, previously 1.7 cm and similar plane of measurement. Extensive fibrotic disease bilaterally. Status: Imported from PACS Assessment & Plan - Diagnosis (1) Acute and chronic respiratory failure Qualifiers: Respiratory failure complication: hypoxia Qualified Code(s): J96.21 - Acute and chronic respiratory failure with hypoxia Is this a current diagnosis for this admission?: Yes Plan: The patient was admitted with 2-3 days of progressively worsening nonproductive cough and dyspnea. He was found to be tachypneic with a RR of 50 and hypoxia on his baseline oxygen. CXR revealed pulmonary fibrosis without acute findings. Chest/ABD CTA demonstrated enlarged right perihilar mass currently measuring 2.2 cm, previously 1.7 cm and extensive fibrotic disease bilaterally without pulmonary embolus. (2) COPD exacerbation Is this a current diagnosis for this admission?: Yes Plan: Patient with severe COPD, pulmonary fibrosis, new perihilar mass and presented in acute on chronic respiratory failure with hypoxia. He endorses 2-3 days of worsened sputum production and dyspnea. He denies recent fever or chills. Recent prolonged hospitalization at [facility] for a spontaneous pneumothorax with VATS Imaging as above. Blood cultures pending. He is admitted to [facility] on continuous cardiac telemetry. He is provided supplemental oxygen and BiPAP as needed to maintain oxygen saturations greater than 88%. He reports disdain for BiPAP due to claustrophobia and noise; the use of BIPAP strongly encouraged by both myself and Dr. Reyna. He is recommended to try to maintain at least 1-2 consistent hours of BiPAP several times daily. He is provided high dose IV Solu-Medrol (125mg q8h), scheduled and as needed nebulizer treatments, Mucinex, and empiric Levaquin for presumed bronchitis. If patient does not improve, may consider Solu-Medrol 1 gram per day x 3 days followed by tapering Pulmonology is consulted; appreciate Dr. Reyna's expertise. (3) Pulmonary fibrosis Is this a current diagnosis for this admission?: Yes Plan: Plan as above (4) Aspiration into airway Is this a current diagnosis for this admission?: Yes Plan: The patient reports known history of hiatal hernia with frequent reflux. He is placed on a PPI. Head of bed elevated. Speech therapy was consulted, they have since signed off. Patient has no difficulty swallowing. (5) Coronary artery disease Is this a current diagnosis for this admission?: Yes Plan: Patient reports CAD with recent cardiac cath resulting in 5 stents. Denies current chest pain; does endorse severe dyspnea at rest and orthopnea. EKG with sinus tachycardia; irregular rate 96-158. Right bundle branch block. Initial troponin is negative. proBNP is slightly elevated to 863. Cardiac diet. Continue daily aspirin, Plavix, and statin therapy. He is monitored on continuous cardiac telemetry. (6) GERD (gastroesophageal reflux disease) Is this a current diagnosis for this admission?: Yes Plan: Prevacid and carafate (7) BPH (benign prostatic hyperplasia) Is this a current diagnosis for this admission?: Yes Plan: Flomax and avodart (8) HLD (hyperlipidemia) Is this a current diagnosis for this admission?: Yes Plan: Cardiac diet Atorvastatin and zetia (9) Anxiety Is this a current diagnosis for this admission?: Yes Plan: Resume Zoloft Clonazepam 0.5mg PO PRN (10) Hypertension Qualifiers: Hypertension type: essential hypertension Qualified Code(s): I10 - Essential (primary) hypertension Is this a current diagnosis for this admission?: Yes Plan: Cardiac diet Home dose lisinopril IV hydralazine for SBP > 170 (11) Hyponatremia Is this a current diagnosis for this admission?: Yes Plan: Unclear etiology Patient reports this is a chronic issue for him Na today dropped to 132 (from 136) Restart home dose Tolvaptan - Time Time Spent with patient: 25-34 minutes Medications reviewed and adjusted accordingly: Yes Anticipated discharge: Home - Inpatient Certification Based on my medical assessment, after consideration of the patient's comorbidities, presenting symptoms, or acuity I expect that the services needed warrant INPATIENT care.: Yes I certify that my determination is in accordance with my understanding of Medicare's requirements for reasonable and necessary INPATIENT services [42 CFR 412.3e].: Yes Medical Necessity: Need For Continuous Telemetry Monitoring, Risk of Complication if Not Cared For in Hospital - Plan Summary Plan Summary: OOB TO RECLINER. BIPAP 1-2 HRS AT A TIME MULTIPLE TIMES PER DAY.
[2018-09-05] MEDS ORDERED: TOLVAPTAN 15 MG TABLET PO SCH (18:00)
[2018-09-05] MEDS: LEVOFLOXACIN 750 MG/D5W RTU 750 MG/150 ML RTUPB IV SCH (21:30)
[2018-09-05] MEDS: CLONAZEPAM 1 MG TABLET PO SCH (21:30)
[2018-09-05] MEDS: ATORVASTATIN CALCIUM 40 MG TABLET PO SCH (21:30)
[2018-09-05] MEDS: MULTIVITAMIN TABLET PO SCH (21:30)
[2018-09-05] MEDS: EZETIMIBE 10 MG TABLET PO SCH (21:44)
[2018-09-06] MEDS ORDERED: LORAZEPAM INJ 2 MG/1 ML VIAL IV ONE (01:15)
[2018-09-06] MEDS ORDERED: MORPHINE SULFATE 10 MG/ML INJ IV ONE (02:00)
[2018-09-06] MEDS: LEVALBUTEROL HCL NEB 1.25 MG/3 ML AMPUL NEB SCH ×4 (02:27→21:22)
[2018-09-06] MEDS: IPRATROPIUM BROMIDE 0.02% NEB 0.5 MG/2.5 ML AMPUL NEB SCH ×4 (02:27→21:23)
[2018-09-06] MEDS: CLONAZEPAM 1 MG TABLET PO PRN (03:53)
[2018-09-06] MEDS: LANSOPRAZOLE 30 MG TAB.RAP.DR PO SCH ×2 (05:49→17:34)
[2018-09-06] MEDS: HEPARIN SOD (PORCINE) 5,000 UNIT/ML 1 ML SYRINGE SUBCUT SCH ×3 (05:49→21:43)
[2018-09-06] MEDS: METHYLPREDNISOLONE INJ 125 MG/2 ML SDV IV SCH ×3 (08:28→21:41)
[2018-09-06 09:06] LABS: HEMATOCRIT 36.2 % (37.9-51.0); MEAN CORPUSCULAR HEMOGLOBIN 25.9 pg (27.0-33.4); MEAN CORPUSCULAR HGB CONC 33.2 g/dL (32.0-36.0); MEAN CORPUSCULAR VOLUME 78 fl (80-97); PLATELET COUNT 273 10^3/uL (150-450); RED BLOOD COUNT 4.63 10^6/uL (4.35-5.55); WHITE BLOOD COUNT 8.6 10^3/uL (4.0-10.5)
[2018-09-06] MEDS: LISINOPRIL 10 MG TABLET PO SCH (09:42)
[2018-09-06] MEDS: SUCRALFATE 1 GM TABLET PO SCH ×4 (09:42→21:42)
[2018-09-06] MEDS: ASPIRIN 81 MG TABLET, CHEWABLE PO SCH (09:42)
[2018-09-06] MEDS: SERTRALINE HCL 50 MG TABLET PO SCH (09:42)
[2018-09-06] MEDS: GUAIFENESIN 600 MG TABLET.SA PO SCH ×2 (09:42→21:42)
[2018-09-06] MEDS: TAMSULOSIN HCL 0.4 MG CAP.SR.24H PO SCH (09:42)
[2018-09-06] MEDS: CLOPIDOGREL BISULFATE 75 MG TABLET PO SCH (09:43)
[2018-09-06] MEDS: DUTASTERIDE 0.5 MG CAPSULE PO SCH (09:46)
[2018-09-06] MEDS: FLUTICASONE NASAL SPRAY 50 MCG/SPRY 120 SPRAY/16 GM NASL SCH ×2 (09:46→21:43)
[2018-09-06] MEDS: TOLVAPTAN 15 MG TABLET PO SCH (09:46)
[2018-09-06 10:14] LABS: ALANINE AMINOTRANSFERASE 21 U/L (21-72); ALKALINE PHOSPHATASE 68 U/L (38-126); ANION GAP 7 (5-19); ASPARTATE AMINO TRANSFERASE 15 U/L (17-59); BILIRUBIN,DIRECT 0.2 mg/dL (0.0-0.4); BILIRUBIN,TOTAL 0.6 mg/dL (0.2-1.3); BLOOD UREA NITROGEN 15 mg/dL (7-20); CALCIUM 9.4 mg/dL (8.4-10.2); CARBON DIOXIDE 30 mmol/L (22-30); CHLORIDE 99 mmol/L (98-107); GLUCOSE 125 mg/dL (75-110); POTASSIUM 3.7 mmol/L (3.6-5.0); SODIUM 135.8 mmol/L (137-145); TOTAL PROTEIN 5.8 g/dL (6.3-8.2)
--- NOTE | 2018-09-06 11:26 | PDOC PROGRESS REPORT ---
Subjective Progress Note for:: 09/05/18 Subjective:: Anxious somewhat confused Reason For Visit: ACUTE ON CHRONIC RESP FAILURE PULM FIBROSIS Physical Exam Vital Signs: Temp Pulse Resp BP Pulse Ox 98.3 F 109 H 22 H 141/69 H 99 09/06/18 07:53 09/06/18 07:53 09/06/18 07:53 09/06/18 07:53 09/06/18 07:53 Pulse Oximeter Continuous Start: 09/05/18 16: 46 Freq: RTQ4 Status: Active Document 09/06/18 07:40 TPO (Rec: 09/06/18 07:55 TPO [email or web address]) Pulse Oximetry Assessment Oxygen Saturation (92-100) 94 Oxygen Flow Rate (L/min) 4 Oxygen Delivery Method Nasal Cannula Fraction of Inspired Oxygen (FIO2) 36 Equipment Usage Equipment in Use Continuous SpO2 Machine # 2 Intake & Output 09/05/18 09/06/18 09/07/18 06:59 06:59 06:59 Intake Total 2082 2053 Output Total 1435 300 Balance 647 1753 Weight 73 kg 77.2 kg General appearance: PRESENT: cooperative, disheveled, mild distress Head exam: PRESENT: atraumatic, normocephalic Eye exam: PRESENT: conjunctiva pale, EOMI. ABSENT: nystagmus, periorbital swelling, scleral icterus Mouth exam: PRESENT: dry mucosa, neck supple, tongue midline Neck exam: ABSENT: carotid bruit, JVD, lymphadenopathy, thyromegaly, tracheal deviation, tracheostomy Respiratory exam: PRESENT: crackles, decreased breath sounds, prolonged expiratory phas, rhonchi, symmetrical, tachypnea, wheezes. ABSENT: retraction, stridor, unlabored Cardiovascular exam: PRESENT: RRR, +S1, +S2, tachycardia Pulses: PRESENT: normal radial pulses GI/Abdominal exam: PRESENT: soft. ABSENT: tenderness Extremities exam: ABSENT: calf tenderness, clubbing, joint swelling, +1 edema, + 2 edema Musculoskeletal exam: ABSENT: deformity, dislocation Neurological exam: PRESENT: awake Psychiatric exam: PRESENT: agitated, anxious Skin exam: PRESENT: dry Results Laboratory Results: 09/04/18 09/04/18 15:40 21:40 Troponin I < 0.012 < 0.012 Impressions: Chest X-Ray 09/03/18 18:10 IMPRESSION: Pulmonary fibrosis. No acute findings. Chest/Abdomen CTA 09/03/18 19:24 IMPRESSION: No emboli visualized in the main pulmonary arteries or the segmental branches. Enlarged right parahilar mass currently measuring 2.2 cm, previously 1.7 cm and similar plane of measurement. Extensive fibrotic disease bilaterally. Assessment & Plan - Diagnosis (1) Acute and chronic respiratory failure Qualifiers: Respiratory failure complication: hypoxia Qualified Code(s): J96.21 - Acute and chronic respiratory failure with hypoxia Is this a current diagnosis for this admission?: Yes (2) Anxiety Is this a current diagnosis for this admission?: Yes Plan: Resume home medications Klonopin and Zoloft (3) COPD exacerbation Is this a current diagnosis for this admission?: Yes Plan: Continue current therapy with bronchodilators laba long acting muscarinic agent some (4) Coronary artery disease Is this a current diagnosis for this admission?: Yes (5) GERD (gastroesophageal reflux disease) Is this a current diagnosis for this admission?: Yes Plan: Hiatal hernia not amenable surgical repair (6) Pulmonary fibrosis Is this a current diagnosis for this admission?: Yes Plan: End-stage
--- NOTE | 2018-09-06 11:28 | PDOC PROGRESS REPORT ---
Subjective Progress Note for:: 09/06/18 Subjective:: Anxious somewhat confused Reason For Visit: ACUTE ON CHRONIC RESP FAILURE PULM FIBROSIS Physical Exam Vital Signs: Temp Pulse Resp BP Pulse Ox 98.3 F 109 H 22 H 141/69 H 99 09/06/18 07:53 09/06/18 07:53 09/06/18 07:53 09/06/18 07:53 09/06/18 07:53 Pulse Oximeter Continuous Start: 09/05/18 16: 46 Freq: RTQ4 Status: Active Document 09/06/18 07:40 TPO (Rec: 09/06/18 07:55 TPO [email or web address]) Pulse Oximetry Assessment Oxygen Saturation (92-100) 94 Oxygen Flow Rate (L/min) 4 Oxygen Delivery Method Nasal Cannula Fraction of Inspired Oxygen (FIO2) 36 Equipment Usage Equipment in Use Continuous SpO2 Machine # 2 Intake & Output 09/05/18 09/06/18 09/07/18 06:59 06:59 06:59 Intake Total 2082 2053 Output Total 1435 300 Balance 647 1753 Weight 73 kg 77.2 kg General appearance: PRESENT: cooperative, disheveled, mild distress Head exam: PRESENT: atraumatic, normocephalic Eye exam: PRESENT: conjunctiva pale, EOMI. ABSENT: nystagmus, periorbital swelling Mouth exam: PRESENT: dry mucosa, neck supple, tongue midline Neck exam: ABSENT: carotid bruit, JVD, lymphadenopathy, thyromegaly, tracheal deviation, tracheostomy Respiratory exam: PRESENT: crackles, decreased breath sounds, prolonged expiratory phas, rhonchi, symmetrical, tachypnea, wheezes. ABSENT: retraction, stridor, unlabored Cardiovascular exam: PRESENT: RRR, +S1, +S2, tachycardia Pulses: PRESENT: normal radial pulses GI/Abdominal exam: PRESENT: soft. ABSENT: tenderness Extremities exam: ABSENT: calf tenderness, clubbing, joint swelling, +1 edema, + 2 edema Musculoskeletal exam: ABSENT: deformity, dislocation Neurological exam: PRESENT: awake Psychiatric exam: PRESENT: agitated, anxious, depressed Skin exam: PRESENT: dry, warm Results Laboratory Results: 09/04/18 09/04/18 15:40 21:40 Troponin I < 0.012 < 0.012 Impressions: Chest X-Ray 09/03/18 18:10 IMPRESSION: Pulmonary fibrosis. No acute findings. Chest/Abdomen CTA 09/03/18 19:24 IMPRESSION: No emboli visualized in the main pulmonary arteries or the segmental branches. Enlarged right parahilar mass currently measuring 2.2 cm, previously 1.7 cm and similar plane of measurement. Extensive fibrotic disease bilaterally. Assessment & Plan - Diagnosis (1) Acute and chronic respiratory failure Qualifiers: Respiratory failure complication: hypoxia Qualified Code(s): J96.21 - Acute and chronic respiratory failure with hypoxia Is this a current diagnosis for this admission?: Yes (2) Anxiety Is this a current diagnosis for this admission?: Yes Plan: Resume home medications Klonopin and Zoloft (3) COPD exacerbation Is this a current diagnosis for this admission?: Yes Plan: Continue current therapy with bronchodilators laba long acting muscarinic agent some (4) Coronary artery disease Is this a current diagnosis for this admission?: Yes (5) GERD (gastroesophageal reflux disease) Is this a current diagnosis for this admission?: Yes Plan: Hiatal hernia not amenable surgical repair (6) Pulmonary fibrosis Is this a current diagnosis for this admission?: Yes Plan: End-stage - Plan Summary Plan Summary: Prognosis extremely poor
[2018-09-06] MEDS ORDERED: METOPROLOL TARTRATE PF/INJ 5 MG/5 ML SDV IV ONE (11:51)
[2018-09-06] MEDS ORDERED: METOPROLOL TARTRATE PF/INJ 5 MG/5 ML SDV IV PRN (11:51)
--- NOTE | 2018-09-06 13:06 | EKG REPORT ---
SEVERITY:- ABNORMAL ECG - A-FLUTTER W/ PREDOM 2:1 AV BLOCK, A-RATE 326 RIGHT BUNDLE BRANCH BLOCK : Confirmed by: Jimmy Grant MD 06-Sep-2018 13:06:17
[2018-09-06] MEDS ORDERED: DILTIAZEM HCL INJ 25 MG/5 ML VIAL IV ONE (14:45)
[2018-09-06] MEDS: DILTIAZEM HCL/D5W 125 MG/125 ML RTUINJ IV PRN (15:53)
--- NOTE | 2018-09-06 17:08 | PDOC PROGRESS REPORT ---
Subjective Progress Note for:: 09/06/18 Subjective:: The patient is a 78-year-old male with a past medical history of hypertension, hyperlipidemia, CHF, CAD (stents x5 1 month ago), emphysema with spontaneous pneumothorax and VATS procedure done in November 2017, home oxygen dependent, and hyponatremia who was admitted 09/03/18 for acute on chronic respiratory failure secondary to severe pulmonary fibrosis and COPD exacerbation. The patient was seen this morning on rounds with Dr. Reyna. The patient was resting in bed on supplemental oxygen. Today, he is able to speak in fragmented sentences before having to pause for breath. This clinical picture is worse compared to yesterday, when the patient was able to speak in full sentences. The patient remains noncompliant with BiPAP, refusing to wear overnight and only wearing for approximately 1-2 hours during the day. Plan to continue empiric antibiotic coverage, steroids, Mucinex, nebulizer treatments. Encourage the patient to wear the BiPAP in between meals. Was able to obtain nasal BiPAP mask from respiratory therapy, patient states he will "give it a try." I expressed my concern to the patient regarding his worsening clinical picture. Lengthy conversation regarding compliance with BiPAP and other respiratory treatments. The patient remains persistently tachycardic. Rhythm appeared to be initially sinus tachycardia (HR 110-120) and has elevated to 150s this afternoon - rhythm changing to A.Flutter. Administered diltiazem 10mg IV bolus followed by diltiazem gtt. Cardiology was consulted. Will continue to monitor closely. Reason For Visit: ACUTE ON CHRONIC RESP FAILURE PULM FIBROSIS Physical Exam Vital Signs: Temp Pulse Resp BP Pulse Ox 97.7 F 89 24 H 140/107 H 96 09/06/18 15:16 09/06/18 15:16 09/06/18 15:16 09/06/18 15:16 09/06/18 16:38 Pulse Oximeter Continuous Start: 09/05/18 16: 46 Freq: RTQ4 Status: Active Document 09/06/18 16:38 TPO (Rec: 09/06/18 16:38 TPO [email or web address]) Pulse Oximetry Assessment Oxygen Saturation (92-100) 96 Oxygen Flow Rate (L/min) 3 Oxygen Delivery Method Nasal Cannula Fraction of Inspired Oxygen (FIO2) 32 Equipment Usage Equipment in Use Continuous SpO2 Machine # 2 Intake & Output 09/05/18 09/06/1809/07/18 06:59 06:59 06:59 Intake Total 2081 2052 1085 Output Total 1435 300 400 Balance 647 1753 685 Weight 73 kg 77.2 kg General appearance: PRESENT: mild distress, well-developed, well-nourished Head exam: PRESENT: atraumatic Eye exam: PRESENT: conjunctiva pink, PERRLA Mouth exam: PRESENT: moist, neck supple, tongue midline Neck exam: PRESENT: full ROM Respiratory exam: PRESENT: clear to auscultation stacy, symmetrical, tachypnea Cardiovascular exam: PRESENT: irregular rhythm, tachycardia Pulses: PRESENT: normal radial pulses, normal dorsalis pedis pul Vascular exam: PRESENT: normal capillary refill GI/Abdominal exam: PRESENT: normal bowel sounds, soft. ABSENT: tenderness Rectal exam: PRESENT: deferred Extremities exam: PRESENT: full ROM Musculoskeletal exam: PRESENT: ambulatory, full ROM Neurological exam: PRESENT: alert, awake, oriented to person, oriented to place , oriented to time, oriented to situation Psychiatric exam: PRESENT: appropriate affect Skin exam: PRESENT: dry, intact, normal color Results Laboratory Results: 09/06/18 08:30 09/06/18 08:30 09/06/18 09/06/18 08:30 08:30 WBC 8.6 RBC 4.63 Hgb 12.0 L Hct 36.2 L MCV 78 L MCH 25.9 L MCHC 33.2 RDW 17.0 H Plt Count 273 Sodium 135.8 L Potassium 3.7 Chloride 99 Carbon Dioxide 30 Anion Gap 7 BUN 15 Creatinine 0.57 Est GFR ( Amer) > 60 Est GFR (Non-Af Amer) > 60 Glucose 125 H Calcium 9.4 Total Bilirubin 0.6 AST 15 L ALT 21 Alkaline Phosphatase 68 Total Protein 5.8 L Albumin 3.0 L 09/04/18 09/04/18 15:40 21:40 Troponin I < 0.012 < 0.012 Impressions: Chest X-Ray 09/03/18 18:10 IMPRESSION: Pulmonary fibrosis. No acute findings. Chest/Abdomen CTA 09/03/18 19:24 IMPRESSION: No emboli visualized in the main pulmonary arteries or the segmental branches. Enlarged right parahilar mass currently measuring 2.2 cm, previously 1.7 cm and similar plane of measurement. Extensive fibrotic disease bilaterally. Status: Imported from PACS Assessment & Plan - Diagnosis (1) Acute and chronic respiratory failure Qualifiers: Respiratory failure complication: hypoxia Qualified Code(s): J96.21 - Acute and chronic respiratory failure with hypoxia Is this a current diagnosis for this admission?: Yes Plan: The patient was admitted with 2-3 days of progressively worsening nonproductive cough and dyspnea. He was found to be tachypneic with a RR of 50 and hypoxia on his baseline oxygen. CXR revealed pulmonary fibrosis without acute findings. Chest/ABD CTA demonstrated enlarged right perihilar mass currently measuring 2.2 cm, previously 1.7 cm and extensive fibrotic disease bilaterally without pulmonary embolus. (2) COPD exacerbation Is this a current diagnosis for this admission?: Yes Plan: Patient with severe COPD, pulmonary fibrosis, new perihilar mass and presented in acute on chronic respiratory failure with hypoxia. He endorses 2-3 days of worsened sputum production and dyspnea. He denies recent fever or chills. Recent prolonged hospitalization at [facility] for a spontaneous pneumothorax with VATS Imaging as above. Blood cultures pending. He is admitted to [facility] on continuous cardiac telemetry. He is provided supplemental oxygen and BiPAP as needed to maintain oxygen saturations greater than 88%. He reports disdain for BiPAP due to claustrophobia and noise; the use of BIPAP strongly encouraged by both myself and Dr. Reyna. He is recommended to try to maintain at least 1-2 consistent hours of BiPAP several times daily. Offered nasal BIPAP mask today to offset claustrophobia and anxiety. He is provided high dose IV Solu-Medrol (125mg q8h), scheduled and as needed nebulizer treatments, Mucinex, and empiric Levaquin for presumed bronchitis. If patient does not improve, may consider Solu-Medrol 1 gram per day x 3 days followed by tapering Pulmonology is consulted; appreciate Dr. Reyna's expertise. (3) Pulmonary fibrosis Is this a current diagnosis for this admission?: Yes Plan: Plan as above (4) Aspiration into airway Is this a current diagnosis for this admission?: Yes Plan: The patient reports known history of hiatal hernia with frequent reflux. He is placed on a PPI. Head of bed elevated. Speech therapy was consulted, they have since signed off. Patient has no difficulty swallowing. (5) Atrial flutter Qualifiers: Atrial flutter type: atypical Qualified Code(s): I48.4 - Atypical atrial flutter Is this a current diagnosis for this admission?: Yes Plan: Atrial Flutter discovered today on EKG Patient's HR remained persistently elevated > 140 Initially treated with 5mg lopressor x1 for rate control, no resolution Treated with diltiazem bolus and IV infusion, titrate to HR < 100 Cardiology consulted, appreciate their recommendations (6) Coronary artery disease Is this a current diagnosis for this admission?: Yes Plan: Patient reports CAD with recent cardiac cath resulting in 5 stents. Denies current chest pain; does endorse severe dyspnea at rest and orthopnea. Initial EKG with sinus tachycardia; irregular rate 96-158. Right bundle branch block. Initial troponin is negative. proBNP is slightly elevated to 863. EKG this afternoon demonstrates atrial flutter, irregular rate 140-160. See plan above Recheck proBNP in a.m. Cardiac diet. Continue daily aspirin, Plavix, and statin therapy. He is monitored on continuous cardiac telemetry. (7) GERD (gastroesophageal reflux disease) Is this a current diagnosis for this admission?: Yes Plan: Prevacid and carafate (8) BPH (benign prostatic hyperplasia) Is this a current diagnosis for this admission?: Yes Plan: Flomax and avodart (9) HLD (hyperlipidemia) Is this a current diagnosis for this admission?: Yes Plan: Cardiac diet Atorvastatin and zetia (10) Anxiety Is this a current diagnosis for this admission?: Yes Plan: Resume Zoloft Clonazepam 0.5mg PO PRN (11) Hypertension Qualifiers: Hypertension type: essential hypertension Qualified Code(s): I10 - Essential (primary) hypertension Is this a current diagnosis for this admission?: Yes Plan: Cardiac diet Home dose lisinopril IV hydralazine for SBP > 170 (12) Hyponatremia Is this a current diagnosis for this admission?: Yes Plan: Unclear etiology Patient reports this is a chronic issue for him Restarted home dose Tolvaptan yesterday Na increased 132->135 - Time Time Spent with patient: 15-24 minutes Medications reviewed and adjusted accordingly: Yes Anticipated discharge: Home - Inpatient Certification Based on my medical assessment, after consideration of the patient's comorbidities, presenting symptoms, or acuity I expect that the services needed warrant INPATIENT care.: Yes I certify that my determination is in accordance with my understanding of Medicare's requirements for reasonable and necessary INPATIENT services [42 CFR 412.3e].: Yes Medical Necessity: Need For Continuous Telemetry Monitoring, Need for Nebulizer Therapy and Monitoring of Response, Risk of Complication if Not Cared For in Hospital - Plan Summary Plan Summary: JUDY CLEMENT. CONSULT CARDIOLOGY. ENCOURAGE BIPAP COMPLIANCE.
--- NOTE | 2018-09-06 18:12 | EKG REPORT ---
SEVERITY:- ABNORMAL ECG - ATRIAL FIBRILLATION, V-RATE 90-170 VENTRICULAR PREMATURE COMPLEX RIGHT BUNDLE BRANCH BLOCK : Confirmed by: Jimmy Grant MD 06-Sep-2018 18:11:37
[2018-09-06] MEDS: LEVOFLOXACIN 750 MG/D5W RTU 750 MG/150 ML RTUPB IV SCH (21:41)
[2018-09-06] MEDS: MULTIVITAMIN TABLET PO SCH (21:42)
[2018-09-06] MEDS: ATORVASTATIN CALCIUM 40 MG TABLET PO SCH (21:45)
[2018-09-06] MEDS: CLONAZEPAM 1 MG TABLET PO SCH (21:45)
[2018-09-06] MEDS: EZETIMIBE 10 MG TABLET PO SCH (21:46)
--- NOTE | 2018-09-06 22:01 | PDOC CONSULTATION ---
Consultation-Blank Consultation: CARDIOLOGY CONSULTATION by Dr. Luz Robertson on 09/06/2018. Patient seen at 3:30 PM. Selected Entries 09/06/18 15:16 Temperature 97.7 F Temperature Oral Source Pulse Rate 89 Respiratory 24 H Rate Blood Pressure 140/107 H Blood Pressure 118 Mean BP Location Right Arm BP Position Sitting O2 Sat by Pulse 95 Oximetry Oxygen Flow 3.00 Rate Oxygen Delivery Nasal Cannula Method 09/03/18 09/03/18 09/04/18 18:24 18:24 15:40 WBC Hgb Hct MCV Plt Count Sodium Potassium Chloride Carbon Dioxide BUN Creatinine Est GFR ( Amer) Glucose Calcium Total Bilirubin Direct Bilirubin Neonat Total Bilirubin Neonat Direct Bilirubin Neonat Indirect Bili AST ALT Alkaline Phosphatase Troponin I < 0.012 < 0.012 NT-Pro-B Natriuret Pep 863 H Total Protein 8.0 Albumin 4.0 09/04/18 09/05/18 09/06/18 21:40 04:45 08:30 WBC 8.6 Hgb 12.0 L Hct 36.2 L MCV 78 L Plt Count 273 Sodium Potassium Chloride Carbon Dioxide BUN Creatinine Est GFR ( Amer) Glucose Calcium Total Bilirubin Direct Bilirubin Neonat Total Bilirubin Neonat Direct Bilirubin Neonat Indirect Bili AST ALT Alkaline Phosphatase Troponin I < 0.012 NT-Pro-B Natriuret Pep Total Protein 5.9 L Albumin 3.0 L 09/06/18 08:30 WBC Hgb Hct MCV Plt Count Sodium 135.8 L Potassium 3.7 Chloride 99 Carbon Dioxide 30 BUN 15 Creatinine 0.57 Est GFR ( Amer) > 60 Glucose 125 H Calcium 9.4 Total Bilirubin 0.6 Direct Bilirubin 0.2 Neonat Total Bilirubin Not Reportable Neonat Direct Bilirubin Not Reportable Neonat Indirect Bili Not Reportable AST 15 L ALT 21 Alkaline Phosphatase 68 Troponin I NT-Pro-B Natriuret Pep Total Protein 5.8 L Albumin 3.0 L
[2018-09-06] MEDS ORDERED: DIGOXIN INJ 0.5 MG/2 ML AMPULE IV ONE (22:30)
--- NOTE | 2018-09-06 22:41 | PDOC CONSULTATION ---
Consultation-Blank Consultation: CARDIOLOGY CONSULTATION by Dr. Luz Robertson on 09/06/2018. Selected Entries 09/06/18 09/06/18 09/06/18 07:40 07:53 16:38 Temperature 98.3 F Temperature Oral Source Pulse Rate 106 H Blood Pressure O2 Sat by Pulse 96 Oximetry Fraction of 32 Inspired Oxygen (FIO2) Oxygen Flow 3 Rate 09/06/18 16:45 Temperature Temperature Source Pulse Rate 139 H Blood Pressure 144/58 H O2 Sat by Pulse Oximetry Fraction of Inspired Oxygen (FIO2) Oxygen Flow Rate 09/06/18 09/06/18 08:30 08:30 WBC 8.6 Hgb 12.0 L Hct 36.2 L Plt Count 273 Sodium 135.8 L Potassium 3.7 Chloride 99 Carbon Dioxide 30 BUN 15 Creatinine 0.57 Est GFR (Non-Af Amer) > 60 Glucose 125 H Calcium 9.4 Total Bilirubin 0.6 Direct Bilirubin 0.2 Neonat Total Bilirubin Not Reportable Neonat Direct Bilirubin Not Reportable Neonat Indirect Bili Not Reportable AST 15 L ALT 21 Alkaline Phosphatase 68 Total Protein 5.8 L Albumin 3.0 L 09/03/18 22:33 Acetaminophen [Tylenol 325 mg Tablet] 650 mg PO Q4HP PRN Guaifenesin [Robitussin Syrup 200 mg/10 ml Ud Cup] 200 mg PO Q4HP PRN Hydralazine HCl [Apresoline Inj/Pf 20 mg/1 ml Sdv] 10 mg IV Q6HP PRN Ipratropium/Albuterol Sulfate [Duoneb 3 ml Ampul] 3 ml NEB [id number] PRN Ketorolac Tromethamine [Toradol Inj/Pf 30 mg/1 ml Sdv] 15 mg IV Q6HP PRN 09/04/18 01:22 Flu Vacc [id number](6Mos Up)/Pf [Fluarix Adlt Quad Vac 0.5 ml Syr] 0.5 ml IM .DISCHARGE PRN 09/04/18 06:00 Heparin Sodium,Porcine [Heparin Inj 5,000 Units/ml 1 ml Syringe] 5,000 unit SUBCUT Q8 Lansoprazole [Prevacid 30 mg Odt Tablet] 30 mg PO BID@0600,1700 Methylprednisolone Sod Succ/Pf [Solu-Medrol Inj/Pf 125 mg/2 ml Sdv] 125 mg IV Q8 Normal Saline [Saline Flush 2.5 ml Monoject Prefil Syrin] 2.5 ml IV Q8 09/04/18 10:00 Aspirin [Aspirin 81 mg Chewable Tablet] 81 mg PO DAILY Clopidogrel Bisulfate [Plavix 75 mg Tablet] 75 mg PO DAILY Dutasteride [Avodart Lf 0.5 mg Capsule] 0.5 mg PO DAILY Fluticasone Propionate [Flonase Nasal [place] 50 Mcg/[place] 16 gm] 2 spray NASL Q12 Lisinopril [Prinivil 10 mg Tablet] 40 mg PO DAILY Sucralfate [Carafate 1 gm Tablet] 1 gm PO QID Tamsulosin HCl [Flomax 0.4 mg Cap.sr] 0.4 mg PO DAILY 09/04/18 10:45 Clonazepam [Klonopin 1 mg Tablet] 0.5 mg PO Q6HP PRN 09/04/18 14:00 Ipratropium [place] [Atrovent 0.02% Neb 0.5 mg/2.5 ml Ampul] 0.5 mg NEB RTQ6 Levalbuterol HCl [Xopenex Neb 1.25 mg/3 ml Ampul] 1.25 mg NEB RTQ6 09/04/18 22:00 Atorvastatin Calcium [Lipitor 40 mg Tablet] 40 mg PO QHS Ezetimibe [Zetia 10 mg Tablet] 10 mg PO QHS Guaifenesin [Mucinex Sr 600 mg Tablet.sa] 600 mg PO Q12 Levofloxacin 750 mg/D5w RTU [Levaquin RTU 750 mg/D5w 150 ml Premix] 750 mg in 150 ml IV QHS Multivitamin [Tab-A-Cooper (Multiple Vitamin) Tablet] 1 tab PO QHS 09/05/18 00:30 Clonazepam [Klonopin 1 mg Tablet] 1 mg PO NOW ONE 09/05/18 22:00 Clonazepam [Klonopin 1 mg Tablet] 1 mg PO QHS 09/06/18 01:15 Lorazepam [Ativan Inj 2 mg/1 ml Vial] 0.5 mg IV NOW ONE 09/06/18 02:00 Morphine Sulfate [Morphine 10 mg/ml Inj] 0.5 mg IV NOW ONE 09/06/18 08:00 Tolvaptan [Samsca 15 mg Tablet] 15 mg PO QAM 09/06/18 10:00 Sertraline HCl [Zoloft 50 mg Tablet] 100 mg PO DAILY 09/06/18 11:51 Metoprolol Tartrate [Lopressor Inj/Pf 5 mg/5 ml Sdv] 5 mg IV NOW ONE Metoprolol Tartrate [Lopressor Inj/Pf 5 mg/5 ml Sdv] 5 mg IV Q6HP PRN
[2018-09-07] MEDS: DILTIAZEM HCL/D5W 125 MG/125 ML RTUINJ IV PRN ×3 (00:01→18:28)
[2018-09-07] MEDS: LEVALBUTEROL HCL NEB 1.25 MG/3 ML AMPUL NEB SCH ×4 (01:44→20:01)
[2018-09-07] MEDS: IPRATROPIUM BROMIDE 0.02% NEB 0.5 MG/2.5 ML AMPUL NEB SCH ×4 (01:44→20:01)
[2018-09-07] MEDS: HEPARIN SOD (PORCINE) 5,000 UNIT/ML 1 ML SYRINGE SUBCUT SCH ×3 (05:07→22:02)
[2018-09-07] MEDS: LANSOPRAZOLE 30 MG TAB.RAP.DR PO SCH ×2 (05:08→17:01)
[2018-09-07] MEDS: METHYLPREDNISOLONE INJ 125 MG/2 ML SDV IV SCH ×3 (05:08→22:00)
[2018-09-07 05:17] LABS: HEMATOCRIT 36.5 % (37.9-51.0); HEMOGLOBIN 12.1 g/dL (13.5-17.0); MEAN CORPUSCULAR HEMOGLOBIN 25.8 pg (27.0-33.4); MEAN CORPUSCULAR HGB CONC 33.1 g/dL (32.0-36.0); MEAN CORPUSCULAR VOLUME 78 fl (80-97); PLATELET COUNT 252 10^3/uL (150-450); RED BLOOD COUNT 4.66 10^6/uL (4.35-5.55); RED CELL DISTRIBUTION WIDTH 16.9 % (11.5-14.0); WHITE BLOOD COUNT 10.3 10^3/uL (4.0-10.5)
[2018-09-07 05:40] LABS: ALANINE AMINOTRANSFERASE 18 U/L (21-72); ALBUMIN 2.8 g/dL (3.5-5.0); ALKALINE PHOSPHATASE 65 U/L (38-126); ANION GAP 6 (5-19); ASPARTATE AMINO TRANSFERASE 14 U/L (17-59); BILIRUBIN,DIRECT 0.2 mg/dL (0.0-0.4); BILIRUBIN,TOTAL 0.6 mg/dL (0.2-1.3); BLOOD UREA NITROGEN 19 mg/dL (7-20); CALCIUM 8.9 mg/dL (8.4-10.2); CARBON DIOXIDE 31 mmol/L (22-30); CHLORIDE 101 mmol/L (98-107); GLUCOSE 144 mg/dL (75-110); POTASSIUM 3.6 mmol/L (3.6-5.0); SODIUM 138.1 mmol/L (137-145); TOTAL PROTEIN 5.3 g/dL (6.3-8.2)
[2018-09-07] MEDS: SUCRALFATE 1 GM TABLET PO SCH ×3 (09:27→22:03)
[2018-09-07] MEDS: SERTRALINE HCL 50 MG TABLET PO SCH (09:27)
[2018-09-07] MEDS: DUTASTERIDE 0.5 MG CAPSULE PO SCH (09:27)
[2018-09-07] MEDS: GUAIFENESIN 600 MG TABLET.SA PO SCH ×2 (09:27→22:04)
[2018-09-07] MEDS: TOLVAPTAN 15 MG TABLET PO SCH (09:27)
[2018-09-07] MEDS: FLUTICASONE NASAL SPRAY 50 MCG/SPRY 120 SPRAY/16 GM NASL SCH ×2 (09:27→22:00)
[2018-09-07] MEDS: TAMSULOSIN HCL 0.4 MG CAP.SR.24H PO SCH (09:27)
[2018-09-07] MEDS: LISINOPRIL 10 MG TABLET PO SCH (09:27)
[2018-09-07] MEDS: CLOPIDOGREL BISULFATE 75 MG TABLET PO SCH (09:27)
[2018-09-07] MEDS: ASPIRIN 81 MG TABLET, CHEWABLE PO SCH (09:27)
[2018-09-07] MEDS ORDERED: CLONAZEPAM 1 MG TABLET PO PRN (10:05)
[2018-09-07] MEDS ORDERED: CLONAZEPAM 1 MG TABLET PO SCH (10:20)
[2018-09-07] MEDS ORDERED: DIGOXIN INJ 0.5 MG/2 ML AMPULE IV ONE (14:30)
--- NOTE | 2018-09-07 16:57 | PDOC PROGRESS REPORT ---
Subjective Progress Note for:: 09/07/18 Subjective:: The patient is a 78-year-old male with a past medical history of hypertension, hyperlipidemia, CHF, CAD (stents x5 1 month ago), emphysema with spontaneous pneumothorax and VATS procedure done in November 2017, home oxygen dependent, and hyponatremia who was admitted 09/03/18 for acute on chronic respiratory failure secondary to severe pulmonary fibrosis and COPD exacerbation. The patient was seen this morning on rounds. The patient was resting in bedside recliner on supplemental oxygen. Today, he is able to speak in full sentences before having to pause for breath. This is an improvement compared to yesterday. The patient was able to tolerate BIPAP overnight for approximately 5 hours. He becomes hypoxic (SPO2 70%) when ambulating to the restroom or preforming any physical activity, despite being on continuous nasal cannula. The patient is extremely tearful today. He was recently told by another physician that he likely has 3-4 months to live. The patient is expressing a great deal of frustration and grief regarding time 'wasted' at [facility] during his previous hospitalization. Patient also expresses regret for not addressing his health concerns in a more timely manner, and he states he has 'a lot of living left to do and not enough time to do it.' When asked if the patient would like to speak to a piano case maker, the patient declined, stating he is not a spiritual person. Psych was consulted to assess the state of the patient's depression/anxiety and make medication recommendations. [facility]IB/A.Flutter. Awaiting further recommendations from cardiology. Reason For Visit: ACUTE ON CHRONIC RESP FAILURE PULM FIBROSIS Physical Exam Vital Signs: Temp Pulse Resp BP Pulse Ox 97.4 F 101 H 22 H 134/67 H 94 09/07/18 11:53 09/07/18 13:54 09/07/18 13:54 09/07/18 11:53 09/07/18 13:54 Pulse Oximeter Continuous Start: 09/05/18 16: 46 Freq: RTQ4 Status: Active Document 09/07/18 11:55 TPO (Rec: 09/07/18 11:55 TPO [id number]) Pulse Oximetry Assessment Oxygen Saturation (92-100) 96 Oxygen Flow Rate (L/min) 3 Oxygen Delivery Method Nasal Cannula Fraction of Inspired Oxygen (FIO2) 32 Equipment Usage Equipment in Use Continuous SpO2 Machine # 2 Intake & Output 09/06/18 09/07/18 09/08/18 06:59 06:59 06:59 Intake Total 2053 2974 670 Output Total 300 1600 100 Balance 1753 1374 570 Weight 77.2 kg 75.5 kg General appearance: PRESENT: well-developed, well-nourished Head exam: PRESENT: atraumatic Eye exam: PRESENT: conjunctiva pink, PERRLA Mouth exam: PRESENT: moist, tongue midline Neck exam: PRESENT: full ROM Respiratory exam: PRESENT: clear to auscultation stacy, tachypnea, other - Able to speak in full sentences with pause.. ABSENT: chest wall tenderness Cardiovascular exam: PRESENT: irregular rhythm, other - AFIB/AFLUTTER Pulses: PRESENT: normal radial pulses, normal dorsalis pedis pul Vascular exam: PRESENT: normal capillary refill GI/Abdominal exam: PRESENT: soft. ABSENT: distended, tenderness Rectal exam: PRESENT: deferred Extremities exam: PRESENT: full ROM Musculoskeletal exam: PRESENT: ambulatory - WHILE ON SUPPLEMENTAL OXYGEN BUT BECOMES SOB VERY QUICKLY, full ROM Neurological exam: PRESENT: alert, awake, oriented to person, oriented to place , oriented to time, oriented to situation Psychiatric exam: PRESENT: anxious, depressed. ABSENT: homicidal ideation, suicidal ideation Skin exam: PRESENT: dry, intact, normal color Results Laboratory Results: 09/07/18 04:54 09/07/18 04:54 09/07/18 09/07/18 04:54 04:54 WBC 10.3 RBC 4.66 Hgb 12.1 L Hct 36.5 L MCV 78 L MCH 25.8 L MCHC 33.1 RDW 16.9 H Plt Count 252 Sodium 138.1 Potassium 3.6 Chloride 101 Carbon Dioxide 31 H Anion Gap 6 BUN 19 Creatinine 0.61 Est GFR ( Amer) > 60 Est GFR (Non-Af Amer) > 60 Glucose 144 H Calcium 8.9 Total Bilirubin 0.6 AST 14 L ALT 18 L Alkaline Phosphatase 65 Total Protein 5.3 L Albumin 2.8 L 09/04/18 09/04/18 09/07/18 15:40 21:40 04:54 Troponin I < 0.012 < 0.012 NT-Pro-B Natriuret Pep 1690 H Impressions: Chest X-Ray 09/03/18 18:10 IMPRESSION: Pulmonary fibrosis. No acute findings. Chest/Abdomen CTA 09/03/18 19:24 IMPRESSION: No emboli visualized in the main pulmonary arteries or the segmental branches. Enlarged right parahilar mass currently measuring 2.2 cm, previously 1.7 cm and similar plane of measurement. Extensive fibrotic disease bilaterally. Status: Imported from PACS Assessment & Plan - Diagnosis (1) Acute and chronic respiratory failure Qualifiers: Respiratory failure complication: hypoxia Qualified Code(s): J96.21 - Acute and chronic respiratory failure with hypoxia Is this a current diagnosis for this admission?: Yes Plan: The patient was admitted with 2-3 days of progressively worsening nonproductive cough and dyspnea. He was found to be tachypneic with a RR of 50 and hypoxia on his baseline oxygen. CXR revealed pulmonary fibrosis without acute findings. Chest/ABD CTA demonstrated enlarged right perihilar mass currently measuring 2.2 cm, previously 1.7 cm and extensive fibrotic disease bilaterally without pulmonary embolus. (2) COPD exacerbation Is this a current diagnosis for this admission?: Yes Plan: No change. Patient still becomes hypoxic with minimal physical exertion. Patient with severe COPD, pulmonary fibrosis, new perihilar mass and presented in acute on chronic respiratory failure with hypoxia. He endorses 2-3 days of worsened sputum production and dyspnea. He denies recent fever or chills. Recent prolonged hospitalization at [facility] for a spontaneous pneumothorax with VATS Imaging as above. Blood cultures pending. He is admitted to [facility] on continuous cardiac telemetry. He is provided supplemental oxygen and BiPAP as needed to maintain oxygen saturations greater than 88%. He reports disdain for BiPAP due to claustrophobia and noise; the use of BIPAP strongly encouraged by both myself and Dr. Reyna. He is recommended to try to maintain at least 1-2 consistent hours of BiPAP several times daily and overnight. Offered nasal BIPAP mask to offset claustrophobia and anxiety. He is provided scheduled steroids, scheduled and as needed nebulizer treatments , Mucinex, and empiric Levaquin for presumed bronchitis. Pulmonology is consulted; appreciate Dr. Reyna's expertise. (3) Pulmonary fibrosis Is this a current diagnosis for this admission?: Yes Plan: Plan as above. Patient's respiratory status still remains poor Hypoxia noted with minimal physical exertion Plan to increase dose of steroids from Solu-Medrol 125mg q8hr to 1G IV daily x 3 days followed by slow wean (4) Aspiration into airway Is this a current diagnosis for this admission?: Yes Plan: The patient reports known history of hiatal hernia with frequent reflux. He is placed on a PPI. Head of bed elevated. Speech therapy was consulted, they have since signed off. Patient has no difficulty swallowing. (5) Atrial flutter Qualifiers: Atrial flutter type: atypical Qualified Code(s): I48.4 - Atypical atrial flutter Is this a current diagnosis for this admission?: Yes Plan: Atrial Flutter discovered yesterday on EKG Patient's HR remained persistently elevated > 140 Initially treated with 5mg lopressor x1 for rate control, no resolution Treated with diltiazem bolus and IV infusion, titrate to HR < 100 OLIVA-VASC score 6 Initiate Eliquis 2.5 mg PO BID Cardiology consulted. (6) Coronary artery disease Is this a current diagnosis for this admission?: Yes Plan: Patient reports CAD with recent cardiac cath resulting in 5 stents. Denies current chest pain; does endorse severe dyspnea at rest and orthopnea. Initial EKG with sinus tachycardia; irregular rate 96-158. Right bundle branch block. Initial troponin is negative. proBNP is elevated 863-->1690 today. EKG today demonstrates atrial fibrillation, irregular rate ~90-110. See plan above Cardiac diet. Continue daily aspirin, Plavix, and statin therapy. He is monitored on continuous cardiac telemetry. (7) GERD (gastroesophageal reflux disease) Is this a current diagnosis for this admission?: Yes Plan: Prevacid and carafate (8) BPH (benign prostatic hyperplasia) Is this a current diagnosis for this admission?: Yes Plan: Flomax and avodart (9) HLD (hyperlipidemia) Is this a current diagnosis for this admission?: Yes Plan: Cardiac diet Atorvastatin and zetia (10) Anxiety Is this a current diagnosis for this admission?: Yes Plan: Resume Zoloft Clonazepam 1.0 mg PO PRN q6h Clonazepam 2.0 mg PO QHS (11) Hypertension Qualifiers: Hypertension type: essential hypertension Qualified Code(s): I10 - Essential (primary) hypertension Is this a current diagnosis for this admission?: Yes Plan: Cardiac diet Home dose lisinopril IV hydralazine for SBP > 170 (12) Hyponatremia Is this a current diagnosis for this admission?: Yes Plan: Resolved Patient reports this is a chronic issue for him Restarted home dose Tolvaptan yesterday Na increased 135->138 - Time Time Spent with patient: 15-24 minutes Medications reviewed and adjusted accordingly: Yes Anticipated discharge: Home, Hospice - Inpatient Certification Based on my medical assessment, after consideration of the patient's comorbidities, presenting symptoms, or acuity I expect that the services needed warrant INPATIENT care.: Yes I certify that my determination is in accordance with my understanding of Medicare's requirements for reasonable and necessary INPATIENT services [42 CFR 412.3e].: Yes Medical Necessity: Need Close Monitoring Due to Risk of Patient Decompensation, Need For Continuous Telemetry Monitoring, Need for Nebulizer Therapy and Monitoring of Response, Need for IV Antibiotics, Risk of Complication if Not Cared For in Hospital - Plan Summary Plan Summary: INCREASE STEROIDS TO 1 GRAM PER DAY. PSYCH CONSULT. INCREASE KLONIPIN DOSAGE. CONTINUE WITH EMPIRIC ABX, NEBULIZER TREATMENTS, BIPAP QHS & DAYTIME NAPS.
[2018-09-07] MEDS: APIXABAN 2.5 MG TABLET PO SCH (17:01)
[2018-09-07] MEDS: METHYLPREDNISOLONE SOD SUCC 1,000 MG in DEXTROSE 5%-WATER 100 ML IV SCH (18:29)
--- NOTE | 2018-09-07 19:55 | Progress Note ---
Provider Note Provider Note: Cardiology PROGRESS NOTE by Dr. Luz Robertson on 09/07/2018. SUBJECTIVE: The patient continues to be in atrial fibrillation with ventricular response in the 130s. He denies any palpitations. He is still short of breath but is claims his shortness breath is slightly better. There is no cough or wheezing. The patient has chronic orthopnea. There is no PND or leg edema. The patient has no anginal symptoms. There is no leg edema. There is no ventricular arrhythmias seen. PHYSICAL EXAMINATION: The patient is a frail build, and looks older than his stated age. He is sitting up in a chair and is not in any acute distress. Selected Entries 09/07/18 09/07/18 09/07/18 11:30 11:53 11:55 Temperature 97.4 F Temperature Oral Source Pulse Rate 117 H Respiratory 22 H Rate Blood Pressure 134/67 H Blood Pressure 89 Mean BP Location Right Arm BP Position Sitting O2 Sat by Pulse 96 Oximetry Oxygen Delivery Nasal Cannula Method ( includes room air) Fraction of 32 Inspired Oxygen (FIO2) Oxygen Flow 3 Rate HEAD: Is atraumatic normocephalic EYES: Pupils are equal round regular reactive to light accommodation. ENT: Is negative. NECK is supple. There is no JVD present. Carotids are equal there is no bruit. There is no definite accessory muscle respiration use. Trachea central. LUNGS: There is diminished air entry prolonged expiration. There are dry leathery rales of pulmonary fibrosis. There is no rhonchi or wheezing. On palpation there is no chest tenderness. On percussion there is hyperresonance throughout. HEART: S1-S2 is heard. S1 is of variable intensity. There is no S3 gallop there is no S4 gallop. There is a systolic murmur left sternal border and the apex. There is no rub. ABDOMEN: Soft nontender there is no paraspinal megaly bowel sounds well heard. There is no tender areas of masses. EXTREMITIES: Femorals are diminished there is no femoral bruits leg pulses are diminished. There is no pedal edema. There is no DVT or cellulitis. There is no sinus or clubbing. Capillary refill is normal. GRADES 1 THROUGH 6 TEACHER: The patient is conscious awake alert oriented x3 with no focal deficits. PSYCHIATRIC: The patient judgment and insight are intact his affect is normal. 09/07/18 09/07/18 09/07/18 04:54 04:54 04:54 WBC 10.3 Hgb 12.1 L Hct 36.5 L MCV 78 L MCH 25.8 L Plt Count 252 Sodium 138.1 Potassium 3.6 Chloride 101 Carbon Dioxide 31 H Anion Gap 6 BUN 19 Creatinine 0.61 Est GFR (Non-Af Amer) > 60 Glucose 144 H Calcium 8.9 Total Bilirubin 0.6 Direct Bilirubin 0.2 Neonat Total Bilirubin Not Reportable Neonat Direct Bilirubin Not Reportable Neonat Indirect Bili Not Reportable AST 14 L ALT 18 L Alkaline Phosphatase 65 NT-Pro-B Natriuret Pep 1690 H Total Protein 5.3 L Albumin 2.8 L IMPRESSION/RECOMMENDATION: 1. Atrial fibrillation with rapid ventricular response: Continue the patient's Cardizem drip. We will give an extra dose of digoxin. Although the patient is on aspirin and Plavix, which he needs since he has drug-eluting stents placed in June 2018, his corrected Luis vas 2 score is 4. Hence he will benefit from chronic anticoagulation therapy. But the patient although he has no history of GI bleed of bleeding anywhere or bleeding diathesis, he is a frail build. Hence he might be at a slightly higher risk. This has been discussed with the patient patient's . With her informed consent the patient will be started on Eliquis 2.5 mg p.o. twice daily, the low-dose being used in view of the patient's age, and his frail build. In addition to this we will continue the patient on aspirin Plavix, Plavix for at least a year from the time of placement of the drug-eluting stents. 2. Acute on chronic respiratory failure: Patient shortness of breath is slightly improved. Patient has significant COPD and pulmonary fibrosis. 3. Pulmonary fibrosis. There is a consideration that the patient's hiatal hernia and gastroesophageal reflux is contributing to the patient's pulmonary fibrosis. 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 He is also resection of the pulmonary fibrosis area of the lung. 3. COPD. Continue the patient on his current anti-COPD medication. Continue steroids,, antibiotics, and Xopenex respiratory treatments. 4. Coronary artery disease: History of drug-eluting stents of the left anterior descending artery, circumflex, and RCA respectively done in June 2018. Continue aspirin and Plavix. The patient has no anginal symptoms. There is no prior history of [place]. 5. PULMONARY ARTERIAL HYPERTENSION: Note that the patient's right heart catheterization done in the right and in June 2018 showed a right ventricle systolic pressure of 55 mmHg. This is moderate pulmonary hypertension. At that time his pH was normal at 15. 6. HYPERTENSION: Blood pressure still not optimally controlled. 7. History of confusion and delirium on admission most likely secondary to the patient's Samsca medication, used to treat his hyponatremia. At present the patient is awake alert although slightly hard of hearing. 8. Enlarged prostate: Asymptomatic on able diet. 9. Hiatal Hernia/GERD: Continuous proton pump inhibitor. 10.DNR: We will respect the patient's wishes. Note the is a surrogate healthcare power of erisa attorney.. Review of the patient's normal wedge pressure, and normal left ventricular systolic function by echo, would rather switch the patient to Cardizem CD long- acting later on, since this will help the patient's pulmonary hypertension. Note medical decision making is of high complexity. His medications have been reviewed, and medications adjusted. Discussed with the attending physician on the case and other caregiving right is on the case. Also would recommend that the patient have a pulmonary consultation locally. 40 minutes spent on this patient more than 50% of time spent in direct patient care.
[2018-09-07] MEDS: MULTIVITAMIN TABLET PO SCH (22:03)
[2018-09-07] MEDS: ATORVASTATIN CALCIUM 40 MG TABLET PO SCH (22:04)
[2018-09-07] MEDS: LEVOFLOXACIN 750 MG/D5W RTU 750 MG/150 ML RTUPB IV SCH (22:04)
[2018-09-07] MEDS: EZETIMIBE 10 MG TABLET PO SCH (22:06)
[2018-09-08] MEDS: IPRATROPIUM BROMIDE 0.02% NEB 0.5 MG/2.5 ML AMPUL NEB SCH ×3 (01:33→13:40)
[2018-09-08] MEDS: LEVALBUTEROL HCL NEB 1.25 MG/3 ML AMPUL NEB SCH ×3 (01:33→13:40)
[2018-09-08] MEDS: DILTIAZEM HCL/D5W 125 MG/125 ML RTUINJ IV PRN (02:38)
[2018-09-08 04:50] LABS: HEMATOCRIT 36.3 % (37.9-51.0); HEMOGLOBIN 11.8 g/dL (13.5-17.0); MEAN CORPUSCULAR HEMOGLOBIN 25.4 pg (27.0-33.4); MEAN CORPUSCULAR HGB CONC 32.4 g/dL (32.0-36.0); MEAN CORPUSCULAR VOLUME 78 fl (80-97); PLATELET COUNT 258 10^3/uL (150-450); RED BLOOD COUNT 4.65 10^6/uL (4.35-5.55); RED CELL DISTRIBUTION WIDTH 16.8 % (11.5-14.0)
[2018-09-08 05:15] LABS: ALANINE AMINOTRANSFERASE 19 U/L (21-72); ALBUMIN 2.8 g/dL (3.5-5.0); ALKALINE PHOSPHATASE 76 U/L (38-126); ANION GAP 9 (5-19); ASPARTATE AMINO TRANSFERASE 15 U/L (17-59); BILIRUBIN,DIRECT 0.2 mg/dL (0.0-0.4); BILIRUBIN,TOTAL 0.6 mg/dL (0.2-1.3); BLOOD UREA NITROGEN 20 mg/dL (7-20); CALCIUM 8.8 mg/dL (8.4-10.2); CARBON DIOXIDE 29 mmol/L (22-30); CHLORIDE 99 mmol/L (98-107); GLUCOSE 146 mg/dL (75-110); POTASSIUM 3.8 mmol/L (3.6-5.0); SODIUM 136.9 mmol/L (137-145); TOTAL PROTEIN 5.3 g/dL (6.3-8.2)
[2018-09-08] MEDS: LANSOPRAZOLE 30 MG TAB.RAP.DR PO SCH (06:21)
[2018-09-08] MEDS: METHYLPREDNISOLONE INJ 125 MG/2 ML SDV IV SCH (06:22)
[2018-09-08] MEDS: HEPARIN SOD (PORCINE) 5,000 UNIT/ML 1 ML SYRINGE SUBCUT SCH ×2 (06:22→15:32)
[2018-09-08] MEDS: GUAIFENESIN 600 MG TABLET.SA PO SCH (09:58)
[2018-09-08] MEDS: METHYLPREDNISOLONE SOD SUCC 1,000 MG in DEXTROSE 5%-WATER 100 ML IV SCH (09:58)
[2018-09-08] MEDS: DUTASTERIDE 0.5 MG CAPSULE PO SCH (09:58)
[2018-09-08] MEDS: FLUTICASONE NASAL SPRAY 50 MCG/SPRY 120 SPRAY/16 GM NASL SCH (09:58)
[2018-09-08] MEDS: CLOPIDOGREL BISULFATE 75 MG TABLET PO SCH (09:59)
[2018-09-08] MEDS: ASPIRIN 81 MG TABLET, CHEWABLE PO SCH (09:59)
[2018-09-08] MEDS: APIXABAN 2.5 MG TABLET PO SCH (09:59)
[2018-09-08] MEDS: SUCRALFATE 1 GM TABLET PO SCH ×2 (09:59→12:10)
[2018-09-08] MEDS: SERTRALINE HCL 50 MG TABLET PO SCH (09:59)
[2018-09-08] MEDS: LISINOPRIL 10 MG TABLET PO SCH (09:59)
[2018-09-08] MEDS: TOLVAPTAN 15 MG TABLET PO SCH (10:00)
[2018-09-08] MEDS ORDERED: TAMSULOSIN HCL 0.4 MG CAP.SR.24H PO SCH (10:00)
[2018-09-08] MEDS ORDERED: DIGOXIN INJ 0.5 MG/2 ML AMPULE ONE (11:48)
[2018-09-08] MEDS ORDERED: DILTIAZEM HCL 180 MG CAPSULE.CR PO ONE (11:48)
[2018-09-08] MEDS ORDERED: LORAZEPAM INJ 2 MG/1 ML VIAL ONE (11:49)
[2018-09-08] MEDS ORDERED: DILTIAZEM HCL 180 MG CAPSULE.CR PO SCH (12:00)
[2018-09-08] MEDS ORDERED: LORAZEPAM INJ 2 MG/1 ML VIAL IV ONE (12:15)
[2018-09-08] MEDS ORDERED: DIGOXIN INJ 0.5 MG/2 ML AMPULE IV ONE (12:15)
[2018-09-08] MEDS ORDERED: ALPRAZOLAM 0.5 MG TABLET PO ONE (12:45)
--- NOTE | 2018-09-08 14:44 | Progress Note ---
Provider Note Provider Note: The patient is requesting to be discharged home today. I have informed him that medically he is not cleared for discharge, but given the severity of the patient 's pulmonary fibrosis and his very poor prognosis, I would be amendable to sending him home with hospice care. The patient and are agreeable to this option. I have reached out to discharge planning to assist in making arrangements for home BIPAP. Additionally, I have called [facility] and requested a consult from [facility] - currently awaiting a call back.
[2018-09-08 17:05] VITALS: BP 126/63
[2018-09-08] MEDS ORDERED: LEVOFLOXACIN 750 MG TABLET PO SCH (22:00)
--- NOTE | 2018-09-08 22:54 | Progress Note ---
Provider Note Provider Note: CARDIOLOGY NOTE by Dr. Luz Robertson on [id number] 2000-07-08. Note the patient is very agitated and very anxious. He definitely wants to go home. In spite of Ativan and Xanax, the patient is decided that he will go home. As per hospitalist the patient and family decided to go home on hospice. Hence will sign off the case. No charges for today. Thanking you end of dictation
--- NOTE | 2018-09-24 22:59 | PDOC DISCHARGE SUMMARY ---
General - Admit/Disc Date/PCP Admission Date/Primary Care Provider: 09/03/18 22:34 ENID STINSON PA-C Discharge Date: 09/08/18 - Discharge Diagnosis (1) Acute and chronic respiratory failure Is this a current diagnosis for this admission?: Yes (2) COPD exacerbation Is this a current diagnosis for this admission?: Yes (3) Pulmonary fibrosis Is this a current diagnosis for this admission?: Yes (4) Aspiration into airway Is this a current diagnosis for this admission?: Yes (5) Atrial flutter Is this a current diagnosis for this admission?: Yes (6) Coronary artery disease Is this a current diagnosis for this admission?: Yes (7) GERD (gastroesophageal reflux disease) Is this a current diagnosis for this admission?: Yes (8) BPH (benign prostatic hyperplasia) Is this a current diagnosis for this admission?: Yes (9) HLD (hyperlipidemia) Is this a current diagnosis for this admission?: Yes (10) Anxiety Is this a current diagnosis for this admission?: Yes (11) Hypertension Is this a current diagnosis for this admission?: Yes (12) Hyponatremia Is this a current diagnosis for this admission?: Yes - Additional Information Resuscitation Status: Do Not Resuscitate Discharge Diet: As Tolerated Discharge Activity: Activity As Tolerated Prescriptions: Apixaban [Eliquis 2.5 mg Tablet] 2.5 mg PO BID #60 tablet Buspirone HCl [Buspar 10 mg Tablet] 10 mg PO BID #14 tablet Clonazepam [Klonopin 1 mg Tablet] 2 mg PO Q6HP PRN #5 tablet PRN Reason: Diltiazem HCl [Cardizem Cd 180 mg Capsule] 180 mg PO Q12 #60 capsule.cr Ipratropium/Albuterol Sulfate [Duoneb 3 ml Ampul] 3 ml NEB RTQ4HP PRN #10 vial.neb PRN Reason: Sertraline HCl [Zoloft 50 mg Tablet] 100 mg PO DAILY #30 tablet Home Medications: Albuterol Sulfate [Ventolin HFA MDI 18 GM] 2 puff IH Q4HP PRN 12/01/17 Dutasteride [Avodart Lf 0.5 mg Capsule] 0.5 mg PO DAILY 12/01/17 Fluticasone Propionate [Flonase Nasal [place] 50 Mcg/[place] 16 gm] 2 spray NASL BID 12/01/17 Lisinopril [Prinivil 40 mg Tablet] 40 mg PO DAILY 12/01/17 Metoprolol Tartrate [Lopressor 100 mg Tablet] 100 mg PO Q12 12/01/17 Tamsulosin HCl [Flomax 0.4 mg Cap.sr] 0.4 mg PO DAILY 12/01/17 Aspirin [Aspirin 81 mg Chewable Tablet] 81 mg PO DAILY 09/04/18 Atorvastatin Calcium [Lipitor 40 mg Tablet] 40 mg PO QHS 09/04/18 Budesonide 0.25 mg IH BID 09/04/18 Clopidogrel Bisulfate [Plavix 75 mg Tablet] 75 mg PO DAILY 09/04/18 Multivit with Calcium,Iron,Min [Women's Daily Formula] 1 each PO QHS 09/04/18 Omeprazole Magnesium [Prilosec Otc] 20 mg PO BID 09/04/18 Sucralfate [Carafate 1 gm Tablet] 1 gm PO Q6 09/04/18 Tolvaptan [Samsca 15 mg Tablet] 15 mg PO DAILY 09/04/18 Apixaban [Eliquis 2.5 mg Tablet] 2.5 mg PO BID #60 tablet 09/08/18 Buspirone HCl [Buspar 10 mg Tablet] 10 mg PO BID #14 tablet 09/08/18 Clonazepam [Klonopin 1 mg Tablet] 2 mg PO Q6HP PRN #5 tablet 09/08/18 Diltiazem HCl [Cardizem Cd 180 mg Capsule] 180 mg PO Q12 #60 capsule.cr Ezetimibe [Zetia 10 mg Tablet] 10 mg PO QHS tablet 09/08/18 Ipratropium/Albuterol Sulfate [Duoneb 3 ml Ampul] 3 ml NEB RTQ4HP PRN #10 vial.neb 09/08/18 Sertraline HCl [Zoloft 50 mg Tablet] 100 mg PO DAILY #30 tablet 09/08/18 History of Present Illness Patient complains of: shortness of breath History of Present Illness: DAVID LA is a 78 year old male with a past medical history of coronary artery disease status post coronary artery stenting 1 month ago, hyponatremia, oxygen dependent pulmonary fibrosis. Presents with cough and shortness of breath. In the emergency room he is found to have tachypnea at 50 breaths per minute, hypoxia of 88% on 4 L of oxygen, enlarged perihilar mass on CT. he is placed on BiPAP, Solu-Medrol, empiric antibiotics. He refuses transfer to tertiary care verifies DNR DNI CODE STATUS. Patient admits to coughing while eating in addition to uncontrolled GERD. Denies fever, rhinorrhea or sore throat. Hospital Course Hospital Course: The patient is a 78-year-old male with a past medical history of hypertension, hyperlipidemia, CHF, CAD (stents x5 1 month ago), emphysema with spontaneous pneumothorax and VATS procedure done in November 2017, home oxygen dependent, and hyponatremia who was admitted 09/03/18 for acute on chronic respiratory failure secondary to severe pulmonary fibrosis. CXR revealed pulmonary fibrosis without acute findings. Chest/ABD CTA demonstrated enlarged right perihilar mass currently measuring 2.2 cm, previously 1.7 cm and extensive fibrotic disease bilaterally without pulmonary embolus. The patient was admitted to the hospitalist service (pulmonary consulted) for acute on chronic respiratory failure with hypoxia secondary to pulmonary fibrosis, COPD and a new perihilar mass. The patient was admitted to [facility] on continuous telemetry and pulse oximetry monitoring. He was provided supplemental oxygen and BiPAP as needed to maintain oxygen saturations greater than 88%. The patient immediately reported his disdain for BiPAP due to claustrophobia and anxiety; the use of BIPAP strongly encouraged by the medical team. He was treated with scheduled steroids, scheduled and as needed nebulizer treatments, Mucinex, and empiric Levaquin for presumed bronchitis. Dr. Reyna informed the patient that his prognosis was very poor. Unfortunately, the patient was in the end stages of his pulmonary fibrosis and his life expectancy was approximately 1-3 months. While in the hospital, the patient developed an arrythmia. Atrial Flutter discovered on EKG, the patient's HR remained elevated > 140. He was initially treated with 5mg lopressor x1 for rate control with no resolution. Cardiology was consulted, Dr. Hilario recommended treatment with a diltiazem bolus and IV infusion. The patient's OLIVA-VASC score 6, so he was started on Eliquis 2.5 mg PO BID. Eventually, the patient was transitioned to PO diltiazem. The patient frequently expressed his frustration with being hospitalized. He also expressed a number of 'regrets' and 'damaged relationships that were beyond repair that will likely never be fixed' due to the patient's short life expectancy. He was often tearful and would express his emotions to the nursing staff and medical team. On hospital day #4 the patient stated he wanted to go home. When he was informed that his medical treatment was not completed, the patient stated, 'I don't care, I want to go home. I don't want to waste any more time in the hospital.' Arrangements were made for the patient to receive a BIPAP machine at home. Additionally, the patient agreed to hospice care. SANTA Parra from [facility] was able to meet with the patient prior to his discharge home. The patient was sent home with prescriptions for nebulizer treatments, PO diltiazem, and Eliquis. He was sent home on hospice care and stated full understanding of what that meant (end of life care). He was provided contact information for the hospice team and stated he would contact them should he require any medical attention. For further information regarding the patient's hospitalization, please refer to the EMR. Physical Exam Vital Signs: Temp Pulse Resp BP Pulse Ox 97.8 F 115 H 17 126/63 H 94 09/08/18 17:04 09/08/18 17:04 09/08/18 17:04 09/08/18 17:04 09/08/18 17:04 Pulse Oximeter Continuous Start: 09/05/18 16: 46 Freq: RTQ4 Status: Active Document 09/08/18 11:53 TPO (Rec: 09/08/18 11:54 TPO [email or web address]) Pulse Oximetry Assessment Oxygen Saturation (92-100) 93 Oxygen Flow Rate (L/min) 4 Oxygen Delivery Method Nasal Cannula Fraction of Inspired Oxygen (FIO2) 36 Equipment Usage Equipment in Use Continuous SpO2 Machine # 2 Intake & Output 09/07/18 09/08/18 09/09/18 06:59 06:59 06:59 Intake Total 2974 1423 355 Output Total 1600 375 125 Balance 1374 1048 230 Weight 75.5 kg 78.6 kg Results Laboratory Results: 09/08/18 04:19 09/08/18 04:19 09/08/18 09/08/18 04:19 04:19 WBC 11.0 H RBC 4.65 Hgb 11.8 L Hct 36.3 L MCV 78 L MCH 25.4 L MCHC 32.4 RDW 16.8 H Plt Count 258 Sodium 136.9 L Potassium 3.8 Chloride 99 Carbon Dioxide 29 Anion Gap 9 BUN 20 Creatinine 0.62 Est GFR ( Amer) > 60 Est GFR (Non-Af Amer) > 60 Glucose 146 H Calcium 8.8 Total Bilirubin 0.6 AST 15 L ALT 19 L Alkaline Phosphatase 76 Total Protein 5.3 L Albumin 2.8 L 09/04/18 09/04/18 09/07/18 15:40 21:40 04:54 Troponin I < 0.012 < 0.012 NT-Pro-B Natriuret Pep 1690 H Impressions: Chest X-Ray 09/03/18 18:10 IMPRESSION: Pulmonary fibrosis. No acute findings. Chest/Abdomen CTA 09/03/18 19:24 IMPRESSION: No emboli visualized in the main pulmonary arteries or the segmental branches. Enlarged right parahilar mass currently measuring 2.2 cm, previously 1.7 cm and similar plane of measurement. Extensive fibrotic disease bilaterally. Status: Imported from [facility] Qual[facility] - * PATIENT BEING DISCHARGED WITH ANY OF THE FOLLOWING DIAGNOSIS: No Plan Discharge Plan: DISCHARGE HOME WITH HOSPICE ([facility]). BIPAP BEING DELIVERED TO HOME. AND PATIENT STATE THEY ALREADY HAVE O2 TANKS (PORTABLE AND CONCENTRATORS) AND NEBULIZER MACHINES AT HOME. Time Spent: Greater than 30 Minutes
== END 2018-09-08 17:46 | disposition hospice, home (50) | DRG 189 ==
LOC: ER 18:00 → EH 22:34 → 3W 09-04 01:06
PROVIDERS: ADMIT Internal Medicine; ATTEND Internal Medicine
PROC: 5A09357 Assistance with Respiratory Ventilation, Less than 24 Consecutive Hours, Continuous Positive Airway Pressure (ICD-10-PCS; 2018-09-05)
PROC: 3E02340 Introduction of Influenza Vaccine into Muscle, Percutaneous Approach (ICD-10-PCS; principal; 2018-09-08)
DX: J96.21 Acute and chronic respiratory failure with hypoxia (principal); E87.1 Hypo-osmolality and hyponatremia; I48.4 Atypical atrial flutter; J84.10 Pulmonary fibrosis, unspecified; I25.10 Atherosclerotic heart disease of native coronary artery without angina pectoris; J43.9 Emphysema, unspecified; Z66 Do not resuscitate; K21.9 Gastro-esophageal reflux disease without esophagitis; I11.0 Hypertensive heart disease with heart failure; I50.9 Heart failure, unspecified; F32.9 Major depressive disorder, single episode, unspecified; F41.9 Anxiety disorder, unspecified; F40.240 Claustrophobia; K44.9 Diaphragmatic hernia without obstruction or gangrene; N40.0 Benign prostatic hyperplasia without lower urinary tract symptoms; E78.5 Hyperlipidemia, unspecified; I45.10 Unspecified right bundle-branch block; Z95.5 Presence of coronary angioplasty implant and graft; Z99.81 Dependence on supplemental oxygen; Z23 Encounter for immunization; Z87.891 Personal history of nicotine dependence; Z79.82 Long term (current) use of aspirin; Z79.899 Other long term (current) drug therapy; Z91.19 Patient's noncompliance with other medical treatment and regimen; Z86.711 Personal history of pulmonary embolism
CPT/HCPCS: 36415; 71045; 71275; 80048; 80053; 81001; 82803; 83880; 84484; 85025; 85027; 87040; 90686; 93005; 93010; 94640; 94660; 94762; 94799; 96361; 96374; 96375; 99291; 99292; A9270-GY; J1160; J1644; J1956; J2060; J2270; J2930; J3360; J3490; J7030; J7620